=== PATIENT | female | born 1970 | race Caucasian/White ===

== ENCOUNTER 2017-01-28 09:17 | Emergency (ER) | payer MEDICAID ==
[~2017-01-28 09:17] MED LIST: GLU500
[2017-01-28 09:22] VITALS: BP 144/88
== END 2017-01-28 10:33 | disposition home or self-care (01) ==
LOC: ED 09:17
DX: H10.31 Unspecified acute conjunctivitis, right eye (principal); E11.9 Type 2 diabetes mellitus without complications; I10 Essential (primary) hypertension; Z79.84 Long term (current) use of oral hypoglycemic drugs
CPT/HCPCS: 82962

== ENCOUNTER 2017-01-31 21:23 | Emergency (ER) | payer MEDICAID ==
[2017-01-31 22:03] VITALS: BP 122/74
== END 2017-01-31 22:03 | disposition home or self-care (01) ==
LOC: ED 21:23
DX: H10.33 Unspecified acute conjunctivitis, bilateral (principal); E11.9 Type 2 diabetes mellitus without complications; Z79.84 Long term (current) use of oral hypoglycemic drugs

== ENCOUNTER 2017-08-23 18:05 | Inpatient (IN) | payer MEDICAID ==
[~2017-08-23] VITALS: Ht 167.6 cm; Wt 66.9 kg
[2017-08-23 18:15] VITALS: Ht 167.6 cm; Wt 66.9 kg
[2017-08-23 19:20] LABS: BASOPHIL % 0.4 % (0-2); PLATELET COUNT 281 x10^3mcL (130-400); RED CELL DISTRIBUTION WIDTH 13.1 % (11.5-14.5)
[2017-08-23 19:34] LABS: ALBUMIN 4.1 g/dL (3.4-5.0); BILIRUBIN TOTAL 0.5 mg/dL (0.20-1.00); CALCIUM 10.1 mg/dL (8.5-10.1); CARBON DIOXIDE 32.4 mmol/L (21-32); CREATININE SERUM 1.1 mg/dL (0.6-1.0); POTASSIUM SERUM 3.6 mmol/L (3.5-5.1); TOTAL PROTEIN, SERUM 9.3 g/dL (6.4-8.2)
[2017-08-23 20:56] VITALS: BP 130/85
[2017-08-24 03:33] LABS: MAGNESIUM 2.3 mg/dL (1.8-2.4); PHOSPHOROUS 4.2 mg/dL (2.5-4.9)
[2017-08-24 03:37] LABS: T3 TOTAL 0.89 ng/mL
[2017-08-24 03:43] LABS: CHOLESTEROL/HDL RATIO 3.7
[2017-08-24 04:26] LABS: FREE T4 1.07 ng/dL (0.76-1.46); FREE THYROXINE INDEX 2.8 ug/dL (1.4-4.5); T4(THYROXINE) 8.6 ug/dL (4.7-13.3)
[2017-08-24 06:07] VITALS: BP 141/90
[2017-08-24 07:58] LABS: CALCIUM 9.1 mg/dL (8.5-10.1); CARBON DIOXIDE 29.1 mmol/L (21-32); CHLORIDE SERUM 103 mmol/L (98-107); CREATININE SERUM 0.8 mg/dL (0.6-1.0); GFR1 > 60 mL/min; GLUCOSE SERUM 318 mg/dL (74-106); MAGNESIUM 1.9 mg/dL (1.8-2.4); PHOSPHOROUS 3.4 mg/dL (2.5-4.9); POTASSIUM SERUM 3.5 mmol/L (3.5-5.1); SODIUM SERUM 141 mmol/L (136-145)
[2017-08-24 08:09] LABS: BASOPHIL % 0.2 % (0-2); PLATELET COUNT 227 x10^3mcL (130-400); RED CELL DISTRIBUTION WIDTH 13.3 % (11.5-14.5)
[2017-08-24 10:20] VITALS: BP 124/74
[2017-08-24 14:05] VITALS: BP 159/93
[2017-08-24 17:32] VITALS: BP 148/85
[2017-08-24 22:57] VITALS: BP 155/84
[2017-08-25 07:10] VITALS: BP 155/84
[2017-08-25 10:00] VITALS: BP 160/93
[2017-08-25] MEDS ORDERED: LIPI10 PO (10:52)
[2017-08-25] MEDS ORDERED: ZESTRIL5 MG PO (10:53)
[2017-08-25] MEDS ORDERED: METFORMIN HCL500 MG PO (10:54)
[2017-08-25] MEDS ORDERED: HUMULIN R100 U/1 M1 SC (10:56)
[2017-08-25] MEDS ORDERED: BG FS (10:56)
[2017-08-25] MEDS ORDERED: LANTUS SOLOS100 U/M1 SQ (10:58)
[2017-08-25 11:09] LABS: CALCIUM 8.9 mg/dL (8.5-10.1); CARBON DIOXIDE 25.6 mmol/L (21-32); CHLORIDE SERUM 97 mmol/L (98-107); CREATININE SERUM 0.7 mg/dL (0.6-1.0); GFR1 > 60 mL/min; GLUCOSE SERUM 334 mg/dL (74-106); MAGNESIUM 1.7 mg/dL (1.8-2.4); POTASSIUM SERUM 3.6 mmol/L (3.5-5.1); SODIUM SERUM 136 mmol/L (136-145)
[2017-08-25 11:33] LABS: BASOPHIL % 0.3 % (0-2); PLATELET COUNT 209 x10^3mcL (130-400); RED CELL DISTRIBUTION WIDTH 12.9 % (11.5-14.5)
[2017-08-25 11:50] VITALS: BP 153/89
[2017-08-25 12:18] LABS: AMPHETAMINE QUAL UR NONE DETECTED (NEG <=1000)
[2017-08-25 12:21] VITALS: BP 131/87; BP 153/89
[2017-08-25 13:15] VITALS: BP 166/101
[2017-08-25 15:06] VITALS: BP 131/87
== END 2017-08-25 17:40 | disposition home or self-care (01) | DRG 48 ==
LOC: ED 18:05 → DU 19:44
PROVIDERS: Emergency Medicine; Student in an Organized Health Care Education/Training Program
DX: E11.43 Type 2 diabetes mellitus with diabetic autonomic (poly)neuropathy (principal); E11.65 Type 2 diabetes mellitus with hyperglycemia; E83.42 Hypomagnesemia; K31.84 Gastroparesis; T38.3X6A Underdosing of insulin and oral hypoglycemic [antidiabetic] drugs, initial encounter; E11.40 Type 2 diabetes mellitus with diabetic neuropathy, unspecified; N39.498 Other specified urinary incontinence; M10.9 Gout, unspecified; D64.9 Anemia, unspecified; E78.5 Hyperlipidemia, unspecified; Z91.120 Patient's intentional underdosing of medication regimen due to financial hardship; Y92.009 Unspecified place in unspecified non-institutional (private) residence as the place of occurrence of the external cause
CPT/HCPCS: 36600; 82962; 83880; 84439; J1815; J2405; J2765; J7030; J8597; Q0092

== ENCOUNTER 2018-05-19 08:23 | Emergency (ER) | payer MEDICAID ==
[~2018-05-19] VITALS: Ht 165.1 cm; Wt 68.0 kg
[~2018-05-19 08:23] MED LIST changes: +BG FS; +HUMULIN R100 U/1 M1 SC; +LANTUS SOLOS100 U/M1 SQ; +LIPI10 PO; +METFORMIN HCL500 MG PO; +ZESTRIL5 MG PO
[2018-05-19 08:31] VITALS: Ht 165.1 cm; Wt 68.0 kg
[2018-05-19 11:55] VITALS: BP 182/94
== END 2018-05-19 11:55 | disposition home or self-care (01) ==
LOC: ED 08:23
DX: S13.4XXA Sprain of ligaments of cervical spine, initial encounter (principal); S29.012A Strain of muscle and tendon of back wall of thorax, initial encounter; S00.511A Abrasion of lip, initial encounter; R51 Headache; E11.9 Type 2 diabetes mellitus without complications; V49.9XXA Car occupant (driver) (passenger) injured in unspecified traffic accident, initial encounter; Y93.I9 Activity, other involving external motion; Y99.8 Other external cause status; Y92.488 Other paved roadways as the place of occurrence of the external cause
CPT/HCPCS: 90715; J2270; Q0162

== ENCOUNTER 2018-07-04 20:00 | Emergency (ER) | payer MEDICAID ==
[~2018-07-04] VITALS: Ht 165.1 cm; Wt 71.2 kg
[2018-07-04 20:08] VITALS: Ht 165.1 cm; Wt 71.2 kg
[2018-07-04 21:26] LABS: PLATELET COUNT 269 x10^3mcL (130-400); RED CELL DISTRIBUTION WIDTH 13.2 % (11.5-14.5)
[2018-07-04 21:27] LABS: BASOPHIL % 0 % (0-2)
[2018-07-04 21:41] LABS: ALKALINE PHOSPHATASE 110 U/L (46-116); ALT/SGPT 21 U/L (14-59); AST/SGOT 13 U/L (15-37); BILIRUBIN TOTAL 0.2 mg/dL (0.20-1.00); CALCIUM 9.3 mg/dL (8.5-10.1); CARBON DIOXIDE 29.1 mmol/L (21-32); CHLORIDE SERUM 95 mmol/L (98-107); GFR1 > 60 mL/min; LIPASE 144 IU/L (73-393); SODIUM SERUM 129 mmol/L (136-145); TOTAL PROTEIN, SERUM 7.4 g/dL (6.4-8.2)
[2018-07-04 21:42] LABS: ALBUMIN 2.9 g/dL (3.4-5.0)
[2018-07-04 21:43] LABS: GLUCOSE SERUM 696 mg/dL (74-106)
[2018-07-05 01:50] VITALS: BP 119/71
== END 2018-07-05 01:50 | disposition home or self-care (01) ==
LOC: ED 20:00
PROVIDERS: Emergency Medicine
DX: R42 Dizziness and giddiness (principal); K29.70 Gastritis, unspecified, without bleeding; E11.9 Type 2 diabetes mellitus without complications; Z98.890 Other specified postprocedural states
CPT/HCPCS: 82962; J1815; J2405; J8597; Q0162

== ENCOUNTER 2019-01-07 20:36 | Inpatient (IN) | payer MEDICAID ==
[~2019-01-07] VITALS: Ht 152.4 cm; Wt 78.0 kg
[2019-01-07 20:44] VITALS: Ht 152.4 cm; Wt 78.0 kg
[2019-01-07 21:59] LABS: PLATELET COUNT 190 x10^3mcL (130-400); RED CELL DISTRIBUTION WIDTH 13.5 % (11.5-14.5)
[2019-01-07 22:08] LABS: BAND NEUTROPHIL 7 % (0-10); METAMYELOCTE 4 % (0-2); MONOCYTE 2 % (0-7); SEGMENTED NEUTROPHILS 82 % (37-75)
[2019-01-07 22:09] LABS: PLATELET MORPHOLOGY PLATELETS NORMAL; rbc morphology (normal/abnorm) NORMAL (NORMAL)
[2019-01-07 22:24] LABS: BILIRUBIN TOTAL 0.4 mg/dL (0.20-1.00); CALCIUM 9.6 mg/dL (8.5-10.1); CARBON DIOXIDE 26.7 mmol/L (21-32); CREATININE SERUM 2.5 mg/dL (0.6-1.0); TOTAL PROTEIN, SERUM 7.5 g/dL (6.4-8.2)
[2019-01-07 22:27] LABS: ALBUMIN 1.9 g/dL (3.4-5.0)
[2019-01-07 22:29] LABS: POTASSIUM SERUM 5.9 mmol/L (3.5-5.1)
[2019-01-08 01:49] LABS: CHOLESTEROL 193 mg/dL (<200); PHOSPHOROUS 4.5 mg/dL (2.5-4.9)
[2019-01-08 02:16] LABS: CHOLESTEROL/HDL RATIO 24.1; HDL CHOLESTEROL 8 mg/dL (40-60); TRIGLYCERIDES 540 mg/dL (<150)
[2019-01-08 03:52] VITALS: BP 117/70
[2019-01-08 06:27] LABS: CALCIUM 8.9 mg/dL (8.5-10.1); CARBON DIOXIDE 20.6 mmol/L (21-32); POTASSIUM SERUM 4.7 mmol/L (3.5-5.1)
[2019-01-08 07:26] LABS: PLATELET COUNT 151 x10^3mcL (130-400); RED CELL DISTRIBUTION WIDTH 13.7 % (11.5-14.5)
[2019-01-08 08:12] VITALS: BP 121/75
[2019-01-08 11:36] LABS: BAND NEUTROPHIL 15 % (0-10); BASOPHIL 0 % (0-2); METAMYELOCTE 3 % (0-2); MONOCYTE 5 % (0-7); MYELOCYTE 1 % (0-2); SEGMENTED NEUTROPHILS 72 % (37-75)
[2019-01-08 11:38] LABS: PLATELET MORPHOLOGY PLATELETS NORMAL
[2019-01-08 11:39] LABS: rbc morphology (normal/abnorm) ABNORMAL (NORMAL)
[2019-01-08 11:55] VITALS: BP 121/69
[2019-01-08 13:23] LABS: microscopic required? YES; urine erythrocyte 3+ (NEGATIVE)
[2019-01-08 15:42] VITALS: BP 108/69
[2019-01-08 20:33] VITALS: BP 117/71
[2019-01-09 04:00] VITALS: BP 130/76
[2019-01-09 05:44] LABS: PLATELET COUNT 133 x10^3mcL (130-400); RED CELL DISTRIBUTION WIDTH 13.7 % (11.5-14.5)
[2019-01-09 05:48] LABS: CALCIUM 8.8 mg/dL (8.5-10.1); CARBON DIOXIDE 23.4 mmol/L (21-32); CREATININE SERUM 1.5 mg/dL (0.6-1.0); MAGNESIUM 1.9 mg/dL (1.8-2.4); PHOSPHOROUS 2.7 mg/dL (2.5-4.9); POTASSIUM SERUM 3.8 mmol/L (3.5-5.1)
[2019-01-09 08:19] VITALS: BP 140/74
[2019-01-09 11:46] VITALS: BP 138/77
[2019-01-09 12:00] LABS: BAND NEUTROPHIL 16 % (0-10); MONOCYTE 5 % (0-7); PLATELET MORPHOLOGY PLATELETS NORMAL; SEGMENTED NEUTROPHILS 73 % (37-75); rbc morphology (normal/abnorm) NORMAL (NORMAL)
[2019-01-09 15:50] VITALS: BP 114/69
[2019-01-09 19:49] VITALS: BP 109/68
[2019-01-09 20:53] VITALS: BP 140/84
[2019-01-10 05:10] VITALS: BP 115/68
[2019-01-10 07:07] LABS: RED CELL DISTRIBUTION WIDTH 14.2 % (11.5-14.5)
[2019-01-10 07:16] LABS: PLATELET COUNT 121 x10^3mcL (130-400)
[2019-01-10 07:34] LABS: CALCIUM 8.8 mg/dL (8.5-10.1); CARBON DIOXIDE 25.8 mmol/L (21-32); CREATININE SERUM 1.6 mg/dL (0.6-1.0); POTASSIUM SERUM 4.1 mmol/L (3.5-5.1)
[2019-01-10 09:13] VITALS: BP 122/71
[2019-01-10 13:28] VITALS: BP 120/80
[2019-01-10 13:49] LABS: BAND NEUTROPHIL 18 % (0-10); MONOCYTE 8 % (0-7); SEGMENTED NEUTROPHILS 63 % (37-75)
[2019-01-10 13:50] LABS: PLATELET MORPHOLOGY LARGE PLATELET SEEN; rbc morphology (normal/abnorm) ABNORMAL (NORMAL)
[2019-01-10 17:10] VITALS: BP 111/70
[2019-01-10 19:49] VITALS: BP 120/68
[2019-01-11 04:38] VITALS: BP 138/80
[2019-01-11 07:37] LABS: CALCIUM 8.2 mg/dL (8.5-10.1); CARBON DIOXIDE 22.9 mmol/L (21-32); CREATININE SERUM 1.6 mg/dL (0.6-1.0); POTASSIUM SERUM 3.5 mmol/L (3.5-5.1)
[2019-01-11 08:16] LABS: PLATELET COUNT 151 x10^3mcL (130-400); RED CELL DISTRIBUTION WIDTH 14.4 % (11.5-14.5)
[2019-01-11 09:24] VITALS: BP 134/76
[2019-01-11 10:46] LABS: BAND NEUTROPHIL 14 % (0-10); BASOPHIL 0 % (0-2); MONOCYTE 6 % (0-7); SEGMENTED NEUTROPHILS 66 % (37-75); rbc morphology (normal/abnorm) ABNORMAL (NORMAL)
[2019-01-11 12:29] VITALS: BP 132/70
[2019-01-11 16:47] VITALS: BP 143/77
[2019-01-11 20:58] VITALS: BP 145/80
[2019-01-12 05:38] VITALS: BP 138/76
[2019-01-12 07:17] LABS: PLATELET COUNT 173 x10^3mcL (130-400)
[2019-01-12 07:25] LABS: RED CELL DISTRIBUTION WIDTH 14.7 % (11.5-14.5)
[2019-01-12 08:13] LABS: CALCIUM 8.2 mg/dL (8.5-10.1); CARBON DIOXIDE 23.2 mmol/L (21-32); CREATININE SERUM 1.2 mg/dL (0.6-1.0); POTASSIUM SERUM 3.5 mmol/L (3.5-5.1)
[2019-01-12 08:44] VITALS: BP 156/83
[2019-01-12] MEDS ORDERED: NITROFURANTOIN100 MG PO (12:26)
[2019-01-12 16:26] LABS: BAND NEUTROPHIL 3 % (0-10); MONOCYTE 2 % (0-7); PLATELET MORPHOLOGY PLATELETS DECREASED; SEGMENTED NEUTROPHILS 91 % (37-75); rbc morphology (normal/abnorm) NORMAL (NORMAL)
[2019-01-12 16:35] VITALS: BP 159/90
[2019-01-12 21:05] VITALS: BP 133/79
[2019-01-13 05:34] VITALS: BP 147/82
[2019-01-13 06:40] LABS: CALCIUM 8.1 mg/dL (8.5-10.1); CARBON DIOXIDE 24.9 mmol/L (21-32); CREATININE SERUM 1.2 mg/dL (0.6-1.0); MAGNESIUM 1.6 mg/dL (1.8-2.4); POTASSIUM SERUM 3.7 mmol/L (3.5-5.1)
[2019-01-13 06:46] LABS: PLATELET COUNT 213 x10^3mcL (130-400)
[2019-01-13 08:22] VITALS: BP 150/82
[2019-01-13 11:53] VITALS: BP 142/90
[2019-01-13 12:42] LABS: BAND NEUTROPHIL 3 % (0-10); BASOPHIL 0 % (0-2); PLATELET MORPHOLOGY PLATELETS DECREASED; SEGMENTED NEUTROPHILS 96 % (37-75)
[2019-01-13 12:43] LABS: ovalocyte/elliptocyte 1+; rbc morphology (normal/abnorm) ABNORMAL (NORMAL)
[2019-01-13 15:49] VITALS: BP 167/92
[2019-01-13 16:28] VITALS: BP 148/88
[2019-01-13 19:45] VITALS: BP 153/82
[2019-01-14 05:04] VITALS: BP 145/79
[2019-01-14 07:03] LABS: PLATELET COUNT 245 x10^3mcL (130-400); RED CELL DISTRIBUTION WIDTH 13.9 % (11.5-14.5)
[2019-01-14 07:11] LABS: CALCIUM 8.2 mg/dL (8.5-10.1); CARBON DIOXIDE 20.1 mmol/L (21-32); CREATININE SERUM 1.1 mg/dL (0.6-1.0); POTASSIUM SERUM 3.7 mmol/L (3.5-5.1)
[2019-01-14 07:47] VITALS: BP 131/77
[2019-01-14 11:43] VITALS: BP 117/84
[2019-01-14 12:20] LABS: BAND NEUTROPHIL 10 % (0-10); BASOPHIL 0 % (0-2); MONOCYTE 4 % (0-7); SEGMENTED NEUTROPHILS 78 % (37-75)
[2019-01-14 12:21] LABS: PLATELET MORPHOLOGY GIANT PLATELET SEEN; rbc morphology (normal/abnorm) ABNORMAL (NORMAL)
[2019-01-14 15:54] VITALS: BP 139/78
[2019-01-14 20:23] VITALS: BP 170/87
[2019-01-14 22:25] VITALS: BP 154/80
[2019-01-15 04:46] VITALS: BP 143/66
[2019-01-15 07:16] LABS: PLATELET COUNT 303 x10^3mcL (130-400); RED CELL DISTRIBUTION WIDTH 14.1 % (11.5-14.5)
[2019-01-15 07:45] LABS: CALCIUM 8.8 mg/dL (8.5-10.1); CARBON DIOXIDE 21.9 mmol/L (21-32); CHLORIDE SERUM 107 mmol/L (98-107); GFR1 > 60 mL/min; GLUCOSE SERUM 179 mg/dL (74-106); POTASSIUM SERUM 3.9 mmol/L (3.5-5.1); SODIUM SERUM 140 mmol/L (136-145)
[2019-01-15 09:59] VITALS: BP 154/84
[2019-01-15 12:11] LABS: ATYPICAL LYMPH 1 %; BAND NEUTROPHIL 3 % (0-10); BASOPHIL 0 % (0-2); MONOCYTE 6 % (0-7); PLATELET MORPHOLOGY PLATELETS DECREASED; SEGMENTED NEUTROPHILS 85 % (37-75)
[2019-01-15 12:12] LABS: rbc morphology (normal/abnorm) ABNORMAL (NORMAL)
[2019-01-15 17:26] VITALS: BP 159/93
[2019-01-15 21:36] VITALS: BP 139/92; BP 169/92
[2019-01-15 23:29] VITALS: BP 150/85
[2019-01-16 06:42] VITALS: BP 144/75
[2019-01-16 06:52] LABS: BASOPHIL % 0.4 % (0-2); PLATELET COUNT 299 x10^3mcL (130-400); RED CELL DISTRIBUTION WIDTH 13.8 % (11.5-14.5)
[2019-01-16 07:04] LABS: CALCIUM 8.2 mg/dL (8.5-10.1); CARBON DIOXIDE 25.3 mmol/L (21-32); CHLORIDE SERUM 107 mmol/L (98-107); GFR1 > 60 mL/min; GLUCOSE SERUM 229 mg/dL (74-106); POTASSIUM SERUM 3.8 mmol/L (3.5-5.1); SODIUM SERUM 139 mmol/L (136-145)
[2019-01-16 09:30] VITALS: BP 145/88
[2019-01-16 17:41] VITALS: BP 185/97
[2019-01-16 17:59] VITALS: BP 185/87
[2019-01-16 18:56] VITALS: BP 137/90
[2019-01-16 21:20] VITALS: BP 154/80
[2019-01-17 04:54] VITALS: BP 151/82
[2019-01-17 07:15] LABS: BASOPHIL % 0.1 % (0-2); PLATELET COUNT 344 x10^3mcL (130-400); RED CELL DISTRIBUTION WIDTH 14.3 % (11.5-14.5)
[2019-01-17 07:16] LABS: CALCIUM 8.1 mg/dL (8.5-10.1); CARBON DIOXIDE 25.4 mmol/L (21-32); CREATININE SERUM 1.2 mg/dL (0.6-1.0); POTASSIUM SERUM 4.3 mmol/L (3.5-5.1)
[2019-01-17 09:08] VITALS: BP 159/84
[2019-01-17 12:57] VITALS: BP 159/84
[2019-01-17 13:24] VITALS: BP 181/89
[2019-01-17 17:13] VITALS: BP 175/95
[2019-01-17 21:25] VITALS: BP 167/87
[2019-01-18 06:02] VITALS: BP 120/60
[2019-01-18 06:43] LABS: RED CELL DISTRIBUTION WIDTH 14.5 % (11.5-14.5)
[2019-01-18 06:44] LABS: PLATELET COUNT 428 x10^3mcL (130-400)
[2019-01-18 07:20] LABS: CALCIUM 9.4 mg/dL (8.5-10.1); CARBON DIOXIDE 24.5 mmol/L (21-32); CREATININE SERUM 1.1 mg/dL (0.6-1.0); POTASSIUM SERUM 4.7 mmol/L (3.5-5.1)
[2019-01-18 09:04] VITALS: BP 152/88
[2019-01-18] MEDS ORDERED: LEVAQUIN750 MG PO (11:32)
[2019-01-18] MEDS ORDERED: LASIX20 MG PO (11:32)
[2019-01-18 12:13] VITALS: BP 152/85
[2019-01-18 14:28] LABS: BAND NEUTROPHIL 0 % (0-10); BASOPHIL 0 % (0-2); MONOCYTE 3 % (0-7); SEGMENTED NEUTROPHILS 83 % (37-75); rbc morphology (normal/abnorm) ABNORMAL (NORMAL)
[2019-01-18 14:29] LABS: PLATELET MORPHOLOGY PLATELETS NORMAL
== END 2019-01-18 15:41 | disposition home or self-care (01) | DRG 720 ==
LOC: ED 20:36 → MU 01-08 00:42 → DU 01-08 00:42 → MU 01-11 12:43 → DU 01-16 17:37
PROVIDERS: Emergency Medicine; Family Medicine; Internal Medicine; ADMIT Internal Medicine
PROC: 0DB68ZX Excision of Stomach, Via Natural or Artificial Opening Endoscopic, Diagnostic (ICD-10-PCS; principal; 2019-01-10 10:30)
DX: A41.9 Sepsis, unspecified organism (principal); N17.0 Acute kidney failure with tubular necrosis; E43 Unspecified severe protein-calorie malnutrition; E11.65 Type 2 diabetes mellitus with hyperglycemia; E87.1 Hypo-osmolality and hyponatremia; N39.0 Urinary tract infection, site not specified; R31.9 Hematuria, unspecified; N13.30 Unspecified hydronephrosis; K29.70 Gastritis, unspecified, without bleeding; K21.9 Gastro-esophageal reflux disease without esophagitis; E87.5 Hyperkalemia; E78.5 Hyperlipidemia, unspecified; E78.1 Pure hyperglyceridemia; Z68.22 Body mass index [BMI] 22.0-22.9, adult; Z79.4 Long term (current) use of insulin; Z79.84 Long term (current) use of oral hypoglycemic drugs
CPT/HCPCS: 36600; 43235; 82962; 83880; 97110-GP; 97116-GP; 97530-GP; J0360; J1200; J1610; J1815; J1940; J1956; J2250; J2270; J2310; J2405; J2543; J2765; J3010; J3370; J3490; J7030; J7050; Q0092

== ENCOUNTER 2020-01-11 21:26 | Inpatient (IN) | payer MEDICAID, SELFPAY ==
[~2020-01-11] VITALS: Ht 157.5 cm; Wt 78.0 kg
[~2020-01-11 21:26] MED LIST changes: +LASIX20 MG PO; +LEVAQUIN750 MG PO; +NITROFURANTOIN100 MG PO
--- NOTE | 2020-01-11 22:57 | NUR ---
XRAY AT BEDSIDE
[2020-01-11 23:38] LABS: PLATELET COUNT 360 x10^3mcL (130-400); RED CELL DISTRIBUTION WIDTH 13.4 % (11.5-14.5)
--- NOTE | 2020-01-11 23:38 | NUR ---
PATIENT LAYING IN BED AWAKE, NO DISTRESS NOTED, PROVIDED PATIENT WITH BLANCKET FOR COMFORT.
[2020-01-11 23:58] LABS: BILIRUBIN TOTAL 0.1 mg/dL (0.20-1.00); CALCIUM 8.2 mg/dL (8.5-10.1); CARBON DIOXIDE 18.8 mmol/L (21-32); TOTAL PROTEIN, SERUM 7.4 g/dL (6.4-8.2)
--- NOTE | 2020-01-11 23:59 | NUR ---
REPORT RECEIVED FROM ANDREWS MARTINEZ. PATIENT IN STABLE CONDITION.
[2020-01-12] VITALS (7 sets, daily range): BP systolic 105–179; BP diastolic 62–98
[2020-01-12 00:01] LABS: ALBUMIN 1.8 g/dL (3.4-5.0); CREATININE SERUM 5.1 mg/dL (0.6-1.0); POTASSIUM SERUM 6.2 mmol/L (3.5-5.1)
[2020-01-12 00:15] LABS: BAND NEUTROPHIL 1 % (0-10); MONOCYTE 5 % (0-7); SEGMENTED NEUTROPHILS 86 % (37-75); rbc morphology (normal/abnorm) NORMAL (NORMAL)
[2020-01-12 00:31] LABS: UA SPECIFIC GRAVITY 1.025 (1.005-1.035); microscopic required? YES; urine erythrocyte 1+ (NEGATIVE)
--- NOTE | 2020-01-12 01:15 | NUR ---
PATIENT LAYIN GIN BED AWAKE, NO ACUTE DISTRESS NOTED AT THIS TIME, CALL LIGHT WITHIN REACH, WILL CONTINUE TO MONITOR.
--- NOTE | 2020-01-12 01:49 | NUR ---
PATIENT TAKE TO CT VIA GURNEY, NO DISTRESS NOTED AT THIS TIME.
--- NOTE | 2020-01-12 02:17 | NUR ---
PATIENT RETURNED FROM CT VIA RSHARPS [place]APEL, NO DISTRESS NOTED AT THIS TIME, WILL CONTINUE TO MONITOR.
--- NOTE | 2020-01-12 02:47 | NUR ---
PATIENT URINATED ON SELF, CLEANED AND CHANGED BEDDING. PT TOLERATED WELL.
[2020-01-12] MEDS ORDERED: FORTAMET1000 MG PO (02:53)
--- NOTE | 2020-01-12 03:20 | NUR ---
REPORT GIVEN TO DARIELA SPARROW, EXT. [id number], ALL QUESTIONS ADDRESSED.
--- NOTE | 2020-01-12 03:30 | NUR ---
ADMITTED PT FROM ED. PT AAOX4. PT ON ROOM AIR. PT CONNECTED TO HEART MONITOR, HEART RHYTHM IS NSR. INITAL VITAL SIGNS, T 97.6, HR 92, BP 179/88(112), O2 100%, RR 14. S1S2 AUSCULTATED, NO S/SX OF CHEST PAIN AT THIS TIME. PULSES MODERATE X4, NO EDEMA PRESENT. CAP REFILL < 3 SEC. PIV LAC, RAC WNL. R BUTTOCK ULCER, DRESSING CDI. R LOWER LEG SCAB, PRERNA. ABDOMEN SOFT, FLAT. BOWEL SOUNDS PRESENT X4 Q. NO N/V, BM AT THIS TIME. F/C INTACT DRAINING VIA GRAVITY YELLOW URINE. GENERALIZED WEAKNESS PRESENT. PT DENIES CURRENT PAIN & IS CALM, COOPERATIVE AT THIS TIME. WILL CONTINUE TO MONITOR.
--- NOTE | 2020-01-12 04:09 | NUR ---
RECEIVED PT FROM ED. PT ALERT AND ORIENTED X4. NO DISTRESS NOTED. KEPT CLEAN AND DRY. ADMISSION CARE RENDERED. SPOKE TO DR. LANGSTON REGARDING NEW ORDERS. NEW ORDERS NOTED AND CARRIED OUT. WILL CONTINUE TO MONITOR.
[2020-01-12 06:07] LABS: CHOLESTEROL/HDL RATIO 10.3
[2020-01-12 06:23] LABS: CALCIUM 8.7 mg/dL (8.5-10.1); CARBON DIOXIDE 18.3 mmol/L (21-32); MAGNESIUM 2.1 mg/dL (1.8-2.4); PHOSPHOROUS 4.4 mg/dL (2.5-4.9)
[2020-01-12 06:25] LABS: POTASSIUM SERUM 6.2 mmol/L (3.5-5.1)
[2020-01-12 06:27] LABS: BASOPHIL % 0.2 % (0-2); RED CELL DISTRIBUTION WIDTH 13.5 % (11.5-14.5)
[2020-01-12 06:28] LABS: PLATELET COUNT 359 x10^3mcL (130-400)
--- NOTE | 2020-01-12 06:42 | NUR ---
SPOKE TO AND RELAYED LAB RESULTS WITH NEW ORDERS. NEW ORDERS NOTED AND CARRIED OUT. WILL CONTINUE TO MONITOR.
--- NOTE | 2020-01-12 08:00 | NUR ---
RECIEVED PT IN BED A/O X 4 SPANSIH SPEAKING. SEE COMPLETED ASSESSMENT FOR DETAILS. PT STABLE WITH NO ACUTE DISTRESS OR PAIN. BED IN LOW POSITION. CALL LIGHT IN REACH. WILL CONT TO MONITOR.
--- NOTE | 2020-01-12 09:10 | NUR ---
DR. DUMAS CALLED FOR UPDATES ON PATIENT. UPDATES PROVIDED AND ORDER FOR BMP AT 1100 GIVEN. WILL FOLLOW AND CONTINUE TO MONITOR.
--- NOTE | 2020-01-12 09:18 | NUR ---
DR. MILLER (UROLOGY) IN TO SEE PT, UPDATES PROVIDED BY NURSING. NO FURTHER ORDERS AT THIS TIME. WOUND CULTURE OF RIGHT BUTTOCK WOUND OBTAINED AND SENT TO LAB.
--- NOTE | 2020-01-12 10:20 | NUR ---
DR. OLVERA IN UNIT TO SEE AND ASSESS PT FOR SURGERY CONSULT. PT TO HAVE I & D TODAY. PROCEDURES, RISK AND BENEFITS EXPLAINED AND TRANSLATED WITH HELP OF ONLINE AFFILIATE MARKETING MANAGER MARTHA. PT VERBALIZED UNDERSTANDING. CONSENT SIGNED AND PLACED IN CHART.
--- NOTE | 2020-01-12 11:02 | NUR ---
DR. OLVERA IN UNIT AND STATED ANESTHIA HAS PLACED THE CASE ON HOLD AT THIS TIME DUE TO ELEVATED POTASSIUM LEVEL. DR. OLVERA MADE AWARE POTASSIUM LEVEL WAS TREATED THIS MORNING (SEE EMAR) AND THAT LAB IS TO BE REPEATED AT [address]. PER DR[address] OLVERA IF POTASSIUM LEVEL IS NOT REDUCED CASE WILL NOT BE ABLE TO BE DONE AND SHOULD CONSIDER TRANSFERRING THE PT OUT. DR. GACRIA MADE AWARE OF THE ABOVE CONVERSTATION.
[2020-01-12 11:49] LABS: CALCIUM 8.8 mg/dL (8.5-10.1); CARBON DIOXIDE 17.7 mmol/L (21-32); POTASSIUM SERUM 5.1 mmol/L (3.5-5.1)
[2020-01-12 11:51] LABS: CREATININE SERUM 4.7 mg/dL (0.6-1.0)
--- NOTE | 2020-01-12 12:00 | NUR ---
SHIFT REASSESSMENT COMPLETED AT THIS TIME. SEE COMPLETED ASSESSMENT FOR DETAILS. NO ACUTE CHANGES NOTED. PT REMAINS STABLE. WILL CONT TO MONITOR. CALL LIGHT IN REACH.
--- NOTE | 2020-01-12 13:24 | NUR ---
ARAM FROM OR MADE AWARE K+ 5.1 AND THE PRIMARY NURSE IS GOING TO TREAT THE HYPERKALEMIA AGAIN AT THIS TIME (SEE EMAR). WILL CONTINUE TO MONITOR.
--- NOTE | 2020-01-12 15:52 | NUR ---
CALLED OR TO FOLLOW UP ON SURGERY TIME, PER PAYROLL BENEFITS CLERK BRIGID STILL WAITING TO HEAR BACK FROM DR. OLVERA AND DOES NOT THINK THE PT WILL GO TO SURGERY TODAY DUE TO TIME. DR. GARCIA MADE AWARE.
--- NOTE | 2020-01-12 16:00 | NUR ---
SHIFT REASSESSMENT COMPLETED, SEE COMPLETED DETAILS. NO ACUTE CHANGES NOTED. PT AWAITING FOR I&D. CALL LIGHT IN REACH. BED IN LOW POSITION. WILL CONT TO MONITOR.
[2020-01-12 16:29] LABS: CALCIUM 8.5 mg/dL (8.5-10.1); CARBON DIOXIDE 18.6 mmol/L (21-32)
[2020-01-12 16:30] LABS: CREATININE SERUM 4.6 mg/dL (0.6-1.0)
--- NOTE | 2020-01-12 17:11 | NUR ---
DR. HORTA IN UNIT TO SEE AND ASSESS PT. MADE AWARE OF TROP LEVELS TRENDING DOWN. NO FURTHER ORDERS. WILL CONT TO MONITOR.
--- NOTE | 2020-01-12 18:28 | NUR ---
REPORT GIVEN TO REIMBURSEMENT DIRECTORANDREWS RAINEY. PT TAKEN OFF UNIT TO OR AT THIS TIME FOR PLANNED I & D PROCEDURE.
--- NOTE | 2020-01-12 19:16 | NUR ---
RECEIVED REPORT FROM OTTONIEL SPARROW. WILL RESUME CARE. PT STILL IN OR AT THIS TIME.
--- NOTE | 2020-01-12 20:00 | NUR ---
RECEIVED PT FROM OR. PT LETHARGIC, BUT AAOX4. PT ON ROOM AIR, NO SIGNS OF RESPIRATORY DISTRESS. LUNG SOUNDS CLEAR BILATERALLY. VITALS ARE HR 92, BP 125/70(80), RR 17, O2 100%, T 98.8. PT CONNECTED TO HEART MONITOR & CONTINUOUS PULSE OX. HEART RHYTHM IS NSR. S1S2 AUSCULTATED PULSES MODERATE X4, CAP REFILL < 3 SEC. +2 EDEMA BLE, TRACE EDEMA BUE. ABDOMEN SOFT, ROUND. NO N/V, BM AT THIS TIME. F/C INTACT DRAINING VIA GRAVITY MADISON URINE. R BUTTOCK AREA COVERED WITH ABD DRESSING. DRESSING CDI. PER OR NURSE ESTIMATED BLOOD LOSS FOR I&D PROCEDURE IS 25CC.PT IS CALM & COOPERATIVE AT THIS TIME. WILL CONTINUE TO MONITOR.
--- NOTE | 2020-01-12 20:00 | NUR ---
RECEIVED PT FROM OR. PT LETHARGIC, BUT AAOX4. PT ON ROOM AIR, NO SIGNS OF RESPIRATORY DISTRESS. LUNG SOUNDS CLEAR BILATERALLY. VITALS ARE HR 92, BP 125/70(80), RR 17, O2 100%, T 98.8. PT CONNECTED TO HEART MONITOR & CONTINUOUS PULSE OX. HEART RHYTHM IS NSR. S1S2 AUSCULTATED PULSES MODERATE X4, CAP REFILL < 3 SEC. NO EDEMA PRESENT. ABDOMEN SOFT, ROUND. NO N/V, BM AT THIS TIME. F/C INTACT DRAINING VIA GRAVITY MADISON URINE. R BUTTOCK AREA COVERED WITH ABD DRESSING. DRESSING CDI. PER OR NURSE ESTIMATED BLOOD LOSS FOR I&D PROCEDURE IS 25CC.PT IS CALM & COOPERATIVE AT THIS TIME. WILL CONTINUE TO MONITOR.
--- NOTE | 2020-01-12 22:43 | NUR ---
UPON ASSESSMENT PT COMPLAINED OF POST OP PAIN 8/10 AND NAUSEA. DILAUDID 0.5MG IVP AND ZOFRAN 4MG IVP GIVEN. WILL CONTINUE TO MONITOR.
--- NOTE | 2020-01-13 03:00 | NUR ---
REASSESSED PT. PT IN NO ACUTE DISTRESS, SLEEPING IN BED AT THIS TIME
[2020-01-13 03:09] VITALS: BP 115/71
--- NOTE | 2020-01-13 04:29 | NUR ---
JAVASCRIPT UI DEVELOPER AT BEDSIDE FOR LAB DRAW
--- NOTE | 2020-01-13 04:51 | NUR ---
UPON ASSESSMENT, WOUND DRESSING TO R BUTTOCK DISPLACED. REPACKED WOUND WITH BETADINE GAUZE & COVERED WITH ABD DRESSING.
[2020-01-13 05:14] LABS: PLATELET COUNT 387 x10^3mcL (130-400); RED CELL DISTRIBUTION WIDTH 13.8 % (11.5-14.5)
[2020-01-13 05:35] LABS: CALCIUM 7.8 mg/dL (8.5-10.1); CARBON DIOXIDE 14.4 mmol/L (21-32); MAGNESIUM 1.8 mg/dL (1.8-2.4); PHOSPHOROUS 5.2 mg/dL (2.5-4.9); POTASSIUM SERUM 5.1 mmol/L (3.5-5.1)
[2020-01-13 06:06] LABS: BAND NEUTROPHIL 10 % (0-10); MONOCYTE 4 % (0-7); SEGMENTED NEUTROPHILS 80 % (37-75)
[2020-01-13 06:07] LABS: PLATELET MORPHOLOGY PLATELETS NORMAL
[2020-01-13 06:11] LABS: rbc morphology (normal/abnorm) NORMAL (NORMAL)
[2020-01-13 07:30] VITALS: BP 128/77
--- NOTE | 2020-01-13 07:30 | NUR ---
RECEIVED PT FROM SPECIAL EDUCATION AIDE RN. A/OX4. ON OPERATIONS LEADER. DENIES ANY CHEST PAIN/PRESSURE. RESPIRATIONS EQUAL AND UNLABORED ON RA. DENIES ANY SOB. PT DENIES ANY SOB AT THIS TIME. PT DOES REPORT ON AND OFF NAUSEA, BUT DENIES ANY AT THIS TIME. DR. MILLER AT BEDSIDE, GIVEN UPDATES ON PT, DRESSING TO RIGHT BUTTOCK CHECKED WITH DR. MILLER, CDI. PER DR. MILLER RECOMMNDS CONTINUE WITH DRESSING CHANGES FOR NOW AND NOT PLAN FOR WOUND VAC TODAY D/T ELEVATED K AND WBC. PT AFEBRILE AT THIS TIME. IV RAC PATENT AND INFUSING NS AT 150ML/HR, NO REDNESS OR SWELLING NOTED. IV TO LAC SALINE LOCKED. NO REDNESS OR SWELLING NOTED. WILL CONTINUE TO MONITOR. CALL LIGHT IN REACH. BED IN LOWEST POSITION.
--- NOTE | 2020-01-13 09:21 | NUR ---
PT SITTING UP IN BED. NO ACUTE RESP DISTRESS NOTED. PT DENIES ANY PAIN AT THIS TIME. WOUND CARE NURSE DARNELL AT BEDSIDE, STATES WOUND IS CLEAN WILL CLARIFY WITH DR. GARCIA WHEN WOUND VAC SHOULD BE PLACED. GIVEN PO MEDS. TOLERATED WELL. NIBP:128/78, MAP:91, HR:96. IV ANTIBIOTICS INFUSING ORDERED. NO REDNESS OR SWELLING NOTED. WILL CONTINUE TO MONITOR. CALL LIGHT IN REACH. BED IN LOWEST POSITION.
--- NOTE | 2020-01-13 09:26 | NUR ---
POC DISCUSSED WITH DR. GARCIA AND PRIMARY RN, PER DR. GARCIA "DO NOT REMOVE WOUND PACKING UNTIL TOMORROW AND APPLY WOUND VAC ON FRIDAY." REQUEST DR. GARCIA TO PLACE ORDER FOR WOUND VAC. PER PRIMARY RN, PT. WILL TRANSFER TO [facility] TODAY.
--- NOTE | 2020-01-13 10:30 | NUR ---
REPORT GIVEN TO BRITTANIE SPARROW ON 2N, ALL QUESTIONS AND CONCERNS ADDRESSED.
--- NOTE | 2020-01-13 10:50 | NUR ---
PT TRANSFERRED TO 235B, NO PROBLEMS ENCOUNTERED. ANDREWS GU TO RESUME CARE.
--- NOTE | 2020-01-13 11:07 | NUR ---
RECEIVED FROM LOAN SERVICES PROFESSIONALANDREWS WALLIS. AOX4, NOT IN DISTRESS, TELE 23 , NSR, PALPABLE PULSES, NO EDEMA, CTA ON BLF, +BS, SKY CATHETER INTACT WITH CLOUDY URINE AND GOOD OUTPUT, GENERALIZED WEAKNESS, LIMITED ROM, R BUTTOCK DTI, S/P I&D 01/12/20, WOUND PACKED WITH SOAKED BETADINE DRESSING, NO OBVIOUS DISCHARGES, IV INTACT AND PATENT AT LAC. PATIENT COMPLAINED OF PAIN AT RAC. NO REDNESS OR SWELLING, CALL LIGHT WITHIN REACH. BED AT LOWEST POSITION, SIDE RAILS UP.
--- NOTE | 2020-01-13 12:14 | NUR ---
ACCUCHECK DONE WITH CBG 211. REG 6 UNITS SQ GIVEN. PHOSLO PO GIVEN.
--- NOTE | 2020-01-13 13:07 | NUR ---
PER DR OLVERA, ORDER CLEOCIN TO GIVE STAT AND THEN EVERY 6 HOURS THEREAFTER. PLEASE CONTINUE SAME DOSE OF CLEOCIN TO GIVE FOR 7 MORE DAYS. PLEASE CONTINUE ZOSYN AND VANCOMYCIN ORDERED
--- NOTE | 2020-01-13 13:14 | NUR ---
STOOL CULTURE AND OB STOOL, WBC STOOL SPECIMEN COLLECTION AT PATIENT'S TOILET. INSTRUCTED PATIENT TO CALL ONCE FEELING THE URGE TO POOP SO WE CAN COLLECT SPECIMEN.
--- NOTE | 2020-01-13 13:41 | NUR ---
ORDERED 2 AMPULES SODIUM BICARBONATE IN 1/2 NS AT 150CC/HR FOR METABOLIC ACIDOSIS.
--- NOTE | 2020-01-13 13:45 | NUR ---
SPOKE WITH DR OLVERA AND CONFIRMED THAT WOUND VAC WILL BE DONE TOMORROW 01/14/20. HYDRAULIC TESTER AT BEDSIDE
--- NOTE | 2020-01-13 14:15 | NUR ---
PATIENT CONSENT SIGNED FOR DEBRIDEMENT AND WOUND VACUUM PLACEMENT AND PLACED ON CHART. PATIENT UNDERSTOOD RISK AND BENEFITS.
--- NOTE | 2020-01-13 15:14 | NUR ---
IVF OF 1/2 NS WITH 2 AMPULES BICARBONATE INFUSING WELL AT 150CC/HR. NO REDNESS OR SWELLING . CALL LIGHT WITHIN REACH. BED AT LOWEST POSITION.
--- NOTE | 2020-01-13 15:41 | NUR ---
Initial Nutrition Assessment: 235T/B ROCHELLE FRIEDMAN 49F HR IA Nursing trigger: Admitted with potential risk diagnosis Consult: Malnutrition, wound Dx: Sepsis hyperkalemia, Renal failure PMHx: DM, GERD, HTN, Dyslipidemia PSHx: Labs: (01/12) Co2 14.4L, Glucose 124H, BUN 73H, Cr 4H, phos 5.2H, WBC 24.8H, H/H 8.2/25L (01/11) Triglyceride 278H, Troponin 0.302H Meds: Apresolin, Cleocin, D50%, Lantus, Lipitor, Lopressor, Norvasc, Phoslo, sodium chloride, Vancomycin, Zosyn PRN meds: Dilaudid, Humulin, Hydralazine, Morphine, Ogema, Normodyne, Tylenol, Zofran Diet: CCHO diet PO intake since admission: no flowsheet entry, 100% for breakfast noted. Ht: 157.48cm/62in Wt: 60kg/132lbs BMI: 24.2 Bed scale: 65kg/145lbs IBW: 50kg/110lbs %IBW: 120lbs UBW: 130lbs Age: 49 Food Allergies: NKFA Edema: 2+ pitting edema noted to BLE Last BM: None noted Skin: Pressure ulcer to right buttocks, Scab to right leg. Michael: 18 Per H and P (01/11), Patient is a 49-year-old female with a PMH of DM, GERD, HTN, Dyslipidemia comes in to the ER with c/o wound on her right inner gluteal area for past 10 days. Patient reported that wound initially started as itching and gradually worsening. She c/o pain which is localized, rated 8/10, and non-radiating and also c/o malodourous discharge from the wound. She didn't get any medical attention. Patient denies fevers, chills, urinary complaints, abdominal pain, chest pain or shortness of breath. Patient reported fatigue and generalized weakness. Patient denies any sick contacts with covid. Patient mentioned that she has weak heart but not sure about her heart condition. 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 She mentioned it happened after jaramillo. PT was admitted with dx: Severe sepsis, DMOOC, rt lower extremity non- healing wound, elevated troponin, vasomotor nephropathy, hyperkalemia, normocytic anemia, h/o HTN, hyponatremia, h/o hypertriglycemia, severe malnutrition, DVT RD Note (01/12) Pt was lying in bed during bedside visit. Pt was Peruvian speaking, and TRANSVERSE ABDOMINAL MUSCLE SURGEON helped with interpretation. Pt reported nausea this morning and denied other GI distress. Per pt, this is her first day having solid food, and she was very hungry. Pt finished 100% of her lunch tray per observation. Pt mentioned that she had slight difficulty chewing d/t her three loose teeth, and she would like to have mechanical soft diet instead. Additionally, pt said she preferred soup. Per pt, her weight had been stable and she was talking MVI at home. At home, pt followed a regular diet. Problem with: N/V/D/C: Nausea in the morning Problems with: Chewing: Yes d/t loose teeth Swallowing: No Current appetite: Good per pt Recent wt change: no per pt %wt change: no per pt Height: 5' per pt Vitamin/Supplement use: MVI per pt Special diet at home: No per pt Physical activity: No per pt Nutrition education given (specify specific nutrition education and handout given): Education on diabetic diet was given to pt. Encouraged pt to be mindful of carbohydrate containing food and try to avoid food with added sugar. Written education "Type 2 Diabetes Nutrition Therapy", "Type 2 Diabetes Label reading tips" and "vitamin K and Medication" in Peruvian were provided to pt. Pt verbalized understanding and accepted education. Food-drug interactions? Education given? Written education "vitamin K and Medication" in Peruvian was provided to pt d/t pt taking metformin at home per H and P. Pt verbalized understanding and accepted education. Estimated Nutritional Needs Based on current body weight (60kg) Energy: 8989-5867 kcal/day (30-35 kcal/kg for sepsis and wound healing) Protein: 90-120 g/day (1.5-2 g/kg for sepsis and wound healing) Fluid: 6903-7235 mL/day (20-25 mL/kcal for 2+ nonpitting edema) or per MD Nutrition Diagnosis: 1. Increased energy and protein needs r/t hypermetabolic state and skin integrity a/e/b pt has sepsis and pressure ulcer to buttocks. 2. Masticatory difficulty r/t loose teeth a/e/b pt reported having 3 loose teeth and prefers mechanical soft diet and soup. 3. Impaired nutrition utilization r/t endocrine dysfunction a/e/b pt elevated glucose 124H, and PMHx of DM Intervention 1. Recommend CCHO 60 mechanical soft diet 2. Recommend Marty BID for wound healing Paged Dr. Soliz. Waiting for response. Will follow up with recommendation the next day. Monitor/Evaluate Goal: PO intake at least 75% of estimated needs Monitor: PO intake, Labs, GI function, skin integrity F/U in 3-5 days as moderate risk /7-9
--- NOTE | 2020-01-13 16:04 | NUR ---
FLUSHED IV . IV PATENT AND INTACT. NO REDNESS . CLEOCIN INFUSING WELL AT 100CC/HR. NO REDNESS OR SWELLING.
[2020-01-13 16:13] VITALS: BP 125/70
--- NOTE | 2020-01-13 16:45 | NUR ---
ACCUCHECK DONE WITH CBG 289. REG 9 UNITS INSULIN SQ GIVEN
--- NOTE | 2020-01-13 17:34 | NUR ---
ZOSYN INFUSING WELL AT 100CC/HR. NO REDNESS OR SWELLING.
[2020-01-13 18:27] VITALS: BP 126/57
--- NOTE | 2020-01-13 19:10 | NUR ---
RECEIVED REPORT FROM BRITTANIE SPARROW. PT IS AAOX4 AND UZBEK SPEAKING ONLY. PT DENIES WEST/DIZZINESS. PT ON TELE #23, NSR WITH HR 73. PT DENIES CP/PRESSURE. PT PULSES PALPABLE AND CAP REFILL <3 SEC. PT LUNG SOUNDS CTA ON RA WITH E/U. PT DENIES SOB OR RESP DISTRESS. PT ABD SOFT/ROUND WITH ACTIVE BS X4. PT DENIES N/V/C/D. PT HAS SKY CATH IN PLACE DRAINING MADISON YELLOW URINE. PT HAS GENERALIZED WEAKNESS. PT HAS DTI TO RIGHT BUTTOCKS WITH BETADINE, GAUZE, ABD PAD. SCAB NOTED TO LEFT ANKLE, CT TECHNOLOGIST. PT DENIES S/S OF PAIN OR DISCOMFORT AT THIS TIME. PT IV TO LAC 18G AND IV TO RAC 20G PATENT AND INTACT. NAHCO3 INFUSING WELL AT 150ML/HR. CALL LIGHT WITHIN REACH. BED IN LOWEST POSITION. SIDE RAILS X2 UP. WILL CONTINUE TO MONITOR.
[2020-01-13 20:29] VITALS: BP 117/68
--- NOTE | 2020-01-13 22:20 | NUR ---
PT ASKED TO SHOWER. WILL MAKE DR. LANGSTON AWARE. WILL CONTINUE TO MONITOR.
--- NOTE | 2020-01-14 02:58 | NUR ---
PT RESTING COMFORTABLY WITH EYES CLOSED, EASILY AROUSABLE. NO ACUTE DISTRESS NOTED AT THIS TIME. NAHCO3 INFUSING WELL AT 150ML/HR. ALL NEEDS MET AT THIS TIME. CALL LIGHT WITHIN REACH. BED IN LOWEST POSITION. SIDE RAILS X2 UP. WILL CONTINUE TO MONITOR.
[2020-01-14 05:35] VITALS: BP 147/86
[2020-01-14 06:39] LABS: BASOPHIL % 0.5 % (0-2); PLATELET COUNT 167 x10^3mcL (130-400); RED CELL DISTRIBUTION WIDTH 14.4 % (11.5-14.5)
--- NOTE | 2020-01-14 06:52 | NUR ---
PT RESTED COMFORTABLY WITH EYES CLOSED DURING THE NIGHT, EASILY AROUSABLE. NO ACUTE DISTRESS NOTED DURING THE NIGHT. PT BREATHING E/U. COMFORT AND SAFETY MEASURES MAINTAINED. ALL QUESTIONS AND CONCERNS ADDRESSED. PT COMPLIED WITH NURSING CARE DURING THE NIGHT. NAHCO3 INFUSING WELL AT 150ML/HR. CALL LIGHT WITHIN REACH. BED IN LOWEST POSITION. SIDE RAILS X2 UP. WILL ENDORSE TO DAY SHIFT NURSE.
--- NOTE | 2020-01-14 07:00 | NUR ---
RECEIVED REPORT FROM LEON SPARROW Pt LYING IN BED WITH EYES CLOSED BUT AROUSABLE A&O X4 ON TELE 23 NSR DENIES ANY CHEST PAIN OR PRESSURE. RECEIVED ON RA LUNGS CTA BILAT DENIES ANY SOB AT THIS TIME. SKY CATHETER DRAINING TO GRAVITY MADISON YELLOW URINE. OPEN WOUND ON RIGHT BUTTOCK COVERED WITH DRESSING C/D/I. IV ON RAC AND LAC PATENT ABD INTACT NO REDNESS OR EDEMA. ALL NEEDS ATTENDED TO AT THIS TIME. BED IN LOWEST POSITION CALL LIGHT WITHIN REACH. WILL CONTINUE TO MONITOR.
[2020-01-14 07:18] LABS: CALCIUM 7.5 mg/dL (8.5-10.1); CARBON DIOXIDE 24.5 mmol/L (21-32); CHLORIDE SERUM 104 mmol/L (98-107); CREATININE SERUM 0.7 mg/dL (0.6-1.0); GFR1 > 60 mL/min; GLUCOSE SERUM 127 mg/dL (74-106); MAGNESIUM 1.6 mg/dL (1.8-2.4); PHOSPHOROUS 2.6 mg/dL (2.5-4.9); POTASSIUM SERUM 3.4 mmol/L (3.5-5.1); SODIUM SERUM 137 mmol/L (136-145)
--- NOTE | 2020-01-14 07:34 | NUR ---
ENDORSED CARE TO CRYSTAL RN. ALL QUESTIONS AND CONCERNS ANSWERED.
--- NOTE | 2020-01-14 09:00 | NUR ---
IV ON RAC FOUND COMING OUT NO BLEEDING NOTED CATHETER INTACT. NO REDNESS OR EDEMA.ALL NEEDS ATTENDED TO
--- NOTE | 2020-01-14 09:00 | NUR ---
Assisted Theresa SPARROW with placement of wound vac. Administered tylenol for 6/10 pain. Pt tolerated well all questions and concerns addressed explained care of wound vac to Pt Kentrell MOSQUEDA to help translate.
--- NOTE | 2020-01-14 09:08 | NUR ---
WOUND CARE NOTE: WOUND ASSESSMENT TO RIGHT GLUTEAL S/P I&D SURGICAL WOUND [id number] WOUND BED WHITE IN COLOR, UNDERMINING 12-3 O'CLOCK 1.5CM PINK IN COLOR,MODERATE AMOUNT SEROUS DRAINAGE, WOUND VAC DRESSING APPLY . PT. TOLERATE PROCEDURES WELL, RIGHT LATERAL LOWER LEG, DRY BROWN SCABS 4X3XM, FRANCHESCA-WOUND SKIN INTACT, NO INDURATION, NO ERYTHEMA.RECOMMEND TO PAINT WITH BETADINE SOLUTION BID AND LEAVE IT STUDIO ASSISTANT, PRIMARY RN MADE AWARE. PT. NAURUAN SPEAKING, PRIMARY RN AT BED SIDE TRANSLATED IN NAURUAN,POC DISCUSSED AND ALL QUESTIONS ANSWERED. PT. VERBALIZES UNDERSTANDING.
[2020-01-14 09:18] VITALS: BP 123/68
[2020-01-14 12:34] VITALS: BP 147/81
--- NOTE | 2020-01-14 12:35 | NUR ---
Pt SITTING UP IN BED EATING LUNCH TOLERATING DIET DENIES NAY N/V
--- NOTE | 2020-01-14 12:41 | NUR ---
Discount pharmacy card and list to low cost medical clinics given to patient.
[2020-01-14 14:02] LABS: PLATELET COUNT 429 x10^3mcL (130-400); RED CELL DISTRIBUTION WIDTH 13.6 % (11.5-14.5)
[2020-01-14 14:03] LABS: BASOPHIL % 0.4 % (0-2)
[2020-01-14 14:07] LABS: BILIRUBIN TOTAL 0.1 mg/dL (0.20-1.00); CALCIUM 7.2 mg/dL (8.5-10.1); CARBON DIOXIDE 20.1 mmol/L (21-32); POTASSIUM SERUM 4.7 mmol/L (3.5-5.1)
[2020-01-14 14:26] LABS: ALBUMIN 1.2 g/dL (3.4-5.0); TOTAL PROTEIN, SERUM 5.6 g/dL (6.4-8.2)
--- NOTE | 2020-01-14 14:45 | NUR ---
INSERTED NEW IV ON RFA 20G PATENT AND INTACT Pt TOLERATED WELL. INFUSING WELL. REMOVED IV ON LAC Pt STATED IT WAS HURTING NO RENESS NOTED. CATHETER INTACT DRESSING APPLIED.
--- NOTE | 2020-01-14 15:59 | NUR ---
HUNG MG 2G IVPB FOR REPLACEMENT Pt TOLERATING WELL NO ADVERSE REACTIONS NOTED
--- NOTE | 2020-01-14 16:08 | NUR ---
PHYSICAL THERAPY NOTE PATIENT REFUSED TREATMENT AND EVAL TODAY. PATIENT EDUCATED WITH BENEFITS OF TREATMENT TO INCREASE OVERALL FUNCTIONAL MOBILITY. PATIENT REPORTS INCREASE OVERALL FATIGUE AND UNABLE TO ENCOURAGE. NURSING AWARE. WILL ATTEMTP NEXT VISIT.
--- NOTE | 2020-01-14 16:50 | NUR ---
BLOOD SUGAR 307 ADMINISTERED 18 UNITS OF REGULAR INSULIN 12 FOR COVERAGE AND 6 SCHEDULAED. Pt TOLERATED WELL NO ADVERSE REACTIONS NOTED. ALL NEEDS ATTENDED TO. Pt LYING IN BED IN NO APARENT DISTRESS. SAFETY PRECAUTIONS IN PLACE. WILL CONTINUE TO MONITOR.
[2020-01-14 17:34] VITALS: BP 134/75
--- NOTE | 2020-01-14 17:54 | NUR ---
REMOVED TELE MONITOR PT NOW MED SURG. CLEANED AND GIVEN BACK TO DISC INSPECTOR. Pt DENIES ANY PAIN OR DISCOMFORT AT THIS TIME. IV INFUSING WELL. ALL NEEDS ATTENDED TO. BED INLOWEST POSITION CALL LIGHT WITHINREACH. WILL CONTINUE TO MONITOR.
--- NOTE | 2020-01-14 19:29 | NUR ---
DR MILLER AT BEDSIDE UPDATING Pt ON POC , TODD MOSQUEDA TRANSLATING GAVE REPORT TO TIA SPARROW. Pt SITTING UP IN BED A&O X4 ON TELE DENIES ANY CHEST PAIN OR PRESSURE. SKY DRAINING TO GRAVITY. ALL NEEDS ATTENDED TO. BED IN LOWEST POSITION CALL LIGHT WITHIN REACH. WOUND VAC ATTACHED C/D.
--- NOTE | 2020-01-14 20:17 | NUR ---
Received pt. from day shift, currently resting in bed. Pt. is a/o x4, able to make needs known, able to follow comands,no c/o h/a, primarily Gibraltarian speaking only. Pt. at this time crying, as per CRIME SCENE TECHNICIAN, pt. states that someone earlier told her that her kidneys were doing fine, but then a surgeon came in recently and told her they are doing bad. Dr. Christianson, nephro at bedside at this time and explaining that there was a mishap in labs. Residential Appraiser at bedside, explaining this, pt. shows and verbalizes understanding at this time. As per leoncio, pt. needs a stent placed, can try to get a team together for tomorrow, but no guarantee d/t it beign friday. plans for friday scheduling, but will make phone calls at this time. Beka, pt. stable, breathing e/u on r/a, no acute distress, no c/o of pain or s/o discomfort. Smith draining c/y w/ some sediment. Pt. on monitor for UOP on this time, CR lvl @ 4, will cont. to monitor.
[2020-01-14 20:37] VITALS: BP 123/78
--- NOTE | 2020-01-15 00:46 | NUR ---
Pt. noted to be resting throughout shift. Explained to pt. that she will have her kidney surgery as mentioned by MD at change of shift. Pt. stated she would like to talk to the MD more and have him answer more questions prior to signing and doing the surgery. Will print out paperwork, continue to monitor, and prep pt. for surgery. no acute changes noted.
--- NOTE | 2020-01-15 05:08 | NUR ---
Pt. noted to be resting throughotu shift, no acute distress. Pt. stable, pt. requests to talk to the MD prior to surgery this AM, otherwise, pt. arminda, will cont. to monitor and endorse care to next shift Rn.
--- NOTE | 2020-01-15 05:25 | NUR ---
MD called at this time to clarify order for consent to be signed and for clarification on order for pain, pt. still stable. will cont. to arnaldo.
[2020-01-15 05:53] VITALS: BP 143/79
--- NOTE | 2020-01-15 06:08 | NUR ---
Pt. noted to have 1400 UOP, yellow and cloudy. Will cont. to monitor.
--- NOTE | 2020-01-15 07:00 | NUR ---
RECEIVED REPORT FROM TIA PASCUAL RN Pt TO GO TO O.R. FOR PROCEDURE. Pt A&O X4 DENIES ANY PAIN AT THIS TIME. WOUND VAC IN PLACE C/D/I. SKY CATHETER DRAINING TO GRAVITY STRAW YELLOW URINE NOTED WITH SEDIMENT. IV ON RFA PATENT AND INTACT NO REDNESS OR EDEMA. PT REFUSING SURGERY STATED "I'D RATHER WAIT" O.R. NURSE BRIGID SPARROW TRANSLATING ANSWERING ALL QUESTIONS AND CONCERNS.
--- NOTE | 2020-01-15 07:02 | NUR ---
Pedro from OR given report at this time, will endorse to next shift rn.
--- NOTE | 2020-01-15 07:20 | NUR ---
DR MILLER AT BEDSIDE ANSWERING ALL QUESTIONS AND CONCERNS
[2020-01-15 07:43] LABS: BASOPHIL % 0.4 % (0-2); PLATELET COUNT 275 x10^3mcL (130-400); RED CELL DISTRIBUTION WIDTH 13.9 % (11.5-14.5)
[2020-01-15 07:47] LABS: CALCIUM 7.6 mg/dL (8.5-10.1); CARBON DIOXIDE 20.4 mmol/L (21-32); CREATININE SERUM 3.8 mg/dL (0.6-1.0); MAGNESIUM 2.2 mg/dL (1.8-2.4); PHOSPHOROUS 5.4 mg/dL (2.5-4.9); POTASSIUM SERUM 4.6 mmol/L (3.5-5.1)
[2020-01-15 07:54] VITALS: BP 143/79
--- NOTE | 2020-01-15 09:15 | NUR ---
DR ANGELO AND ERI AT BEDSIDE UPDATING Pt ON POC ARLETH RN FOR TRANSLATION. ALL QUESTIONS AND CONCERNS ADDRESSED TO Pt CONCERNING OPERATION. Pt AGREEABLE TO SURGERY WILL LIKE TO TALK TO DR MILLER
[2020-01-15 11:43] LABS: ERYTHROCYTE SED RATE 102 mm/hr (0-30)
[2020-01-15 12:30] VITALS: BP 122/77
--- NOTE | 2020-01-15 13:13 | NUR ---
PER DR ANGELO NO SURGERY TODAY UPDATED Pt ON POC
--- NOTE | 2020-01-15 15:10 | NUR ---
Pt LYING IN BED WITH EYES CLOSED IN NO APARENT DISTRESS. CHEST RISE EQUAL AND UNLABORED. WOUND VAC FUNCTIONING WELL IV INFUSING AND SKY DRAINING TO GRAVITY. ALL NEEDS ATTENDED TO. BED IN LOWEST POSITION CALL LIGHT WITHIN REACH. WILL CONTINUE TO MONITOR.
--- NOTE | 2020-01-15 15:18 | NUR ---
P.T. NOTES P.T. EVAL COMPLETED; WILL BENEFIT W/ P.T. POST ACUTE STAY. BP=99/60 (SITTING), 75/46 (STANDING), 104/66 (SUPINE, POST TX)
[2020-01-15 17:05] VITALS: BP 111/77
--- NOTE | 2020-01-15 18:43 | NUR ---
Pt SITTING UP IN BED C/O BEING VERY TIRED. WOUND VAC IN PLACE SUCTIONING WELL. C/D/I. ON TELE 23 DENIES ANY CHEST PAIN OR PRESSURE. SKY CATHETER DRAINING TO GRAVITY STRAW YELLOW URINE WITH SEDIMENT WHITE NOTED. IV ON RFA PATENT AND INTACT INFUSING WELL.ALL NEEDS ATTENDED TO ALL SAFETY PRECAUTIONS IN PLACE. WILL ENDORSE CARE TO NIGHT RN.
--- NOTE | 2020-01-15 19:34 | NUR ---
Received pt. from day shift, currently resting in bed. pt. is a/o x4, able to make simple needs known, able to follow simple commands, no c/o h/a, primarily Romanian speaking and has vision problems in MARION eyes. Pt. is breathing e/u, on RA, no s/o acute distress or SOB. Pt. has no c/o pain at this time or s/o discomfort. Pt. NSR on tele 23, no c/o chest pain at this time. Pt. on mcconnell cath, draining yellow and cloudy to gravity. Pt. still has no BM at this time, will cont. to monitor. Pt. gen weakenss and wound vac to r buttocks, slight drainage, white and abhi like in wound vac. Pt. still on Na HCO3, running at 125 cc/hr, will change bag at this time. Otherwise, pt. stable, no s/o acute distress, pt.s afety in check, call light placed within reach, will cont. to monitor.
[2020-01-15 21:37] VITALS: BP 118/69
--- NOTE | 2020-01-16 | NUR ---
Pt. resting thorughout shift, resting w/ eyes closed, easily arousable using verbal stimuli. Pt. mcconnell still draining cloudy and yellow. No acute distress noted. Pt. resting well in bed, able to make needs known. Dressing in tact on R hip s/p debridement. Will cont. to monitor.
--- NOTE | 2020-01-16 04:18 | NUR ---
Pt. resting throughout shift w/ eyes clsoed, able to make needs known. NO acute distress, will cont. to monitor.
--- NOTE | 2020-01-16 05:08 | NUR ---
made aware that pt. hasn't passed BM since 01/11/2020. will put new orders in at this time.
[2020-01-16 05:18] VITALS: BP 149/87
--- NOTE | 2020-01-16 06:20 | NUR ---
Pt. noted to be resting throughout shift, no acute distress. Able to make needs known, mcconnell draining yellow and cloudy still, no acute pain, will cont. to monitor and endorse to next shift RN.
[2020-01-16 07:24] LABS: BASOPHIL % 0.1 % (0-2); PLATELET COUNT 367 x10^3mcL (130-400); RED CELL DISTRIBUTION WIDTH 13.8 % (11.5-14.5)
[2020-01-16 07:32] LABS: CALCIUM 7.6 mg/dL (8.5-10.1); CARBON DIOXIDE 24.6 mmol/L (21-32); CREATININE SERUM 3.5 mg/dL (0.6-1.0); PHOSPHOROUS 4.9 mg/dL (2.5-4.9); POTASSIUM SERUM 4.5 mmol/L (3.5-5.1)
--- NOTE | 2020-01-16 07:35 | NUR ---
RECEIVED PT IN BED AWAKE, VERBALLY RESPONSIVE. IN NO ACUTE RESPIRATORY DISTRESS. DENIES PAIN OR DISCOMFORT AT THIS TIME. ON TELE 23. SKY CATH DRAINING WITH YELLOW-CLOUDY URINE. WOUND VAC IN PLACE. IV SITE TO RIGHT AC RUNNING ON SODIUM BICARB AT 125CC/HR. BED IN LOWEST POSITION. CALL LIGHT WITHIN REACH. WILL CONTINUE TO MONITOR.
[2020-01-16 09:03] VITALS: BP 148/85
--- NOTE | 2020-01-16 11:20 | NUR ---
PT WAS SEEN BY COLLEEN YORK (GENERAL SURGEON), PER MANDY YORK TO SHOWER AND CONTINUE WOUND VAC TREATMENT REGIMEN.
[2020-01-16 16:39] VITALS: BP 136/81
--- NOTE | 2020-01-16 17:20 | NUR ---
WOUND VAC TREATMENT DONE TO RIGHT BUTTOCK DONE ORDERED. DRESSING WAS SOILED FROM .
--- NOTE | 2020-01-16 19:17 | NUR ---
ENDORSE PATIENT TO INCOMING NURSE. PATIENT IN BED AT THIS TIME AOX3 ANDORRAN SPEAKING. DENIES PAIN OR DISCOMFORT. IN NO ACUTE RESPIRATORY DISTRESS, DENIES SOB. ON TELE 23. SKY CATH DRAINING WITH YELLOW CLOUDY URINE. IV SITE TO RIGHT AC RUNNING ON SODIUM BICARB AT 125CC/HR, IV INTACT AND PATENT. BED IN LOWEST POSITION. CALL LIGHT WITHIN REACH.
--- NOTE | 2020-01-16 19:25 | NUR ---
Received pt. from day shift, currently resting in bed. pt. is a/o x4, able to make simple needs knonw, able to follow simple commands, no c/o h/a, Bermudian speaking only. pt. is breathing e/u on Ra, no acute distress or SOB noted. Pt. has no c/o pain at this time. Pt. wound was seen by MD today, cont. abx, and saw wound today. Pt. still on mcconnell cath, draining jairo and cloudy, will cont. to monitor. Pt. able to pass bm today as per day shift, otherwise, pt. stable, IV site patent, dressing CDI. Pt. bed set at lowest postiion, call light placed withinr each, will cont.t o monitor.
[2020-01-16 21:26] VITALS: BP 149/83
--- NOTE | 2020-01-17 00:31 | NUR ---
Pt. noted to resting in bed, mcconnell still draining cloudy and jairo, no c/o of pain or s/o distress or discomfort. Pt. breathing e/u on RA. Will cont. to monitor
[2020-01-17 05:19] VITALS: BP 130/81
--- NOTE | 2020-01-17 05:38 | NUR ---
Will endorse c are to next shift RN.
--- NOTE | 2020-01-17 05:40 | NUR ---
pt. noted to be resting throughout shift, and medication to help her pass bm really is helping her. pt. had concern about not feeling clean about automotive painter cleanign her, checked w/ other rn and pt. was clean. pt. benefits from yemeni speaking staff because pt. is unable to speak croatian, can only understand and speak a few words. otherwise, pt. stable, dressing in tact, draining to wound vac, pt. mcconnell draining to gravity jairo and cloudy, no acute distress or pain noted. will cont. to monitor and endorse care to next shift rn.
[2020-01-17 07:14] LABS: CALCIUM 8.1 mg/dL (8.5-10.1); CARBON DIOXIDE 27.5 mmol/L (21-32); CREATININE SERUM 3.2 mg/dL (0.6-1.0); POTASSIUM SERUM 4.2 mmol/L (3.5-5.1)
[2020-01-17 07:30] LABS: BASOPHIL % 0.3 % (0-2); RED CELL DISTRIBUTION WIDTH 13.6 % (11.5-14.5)
--- NOTE | 2020-01-17 07:30 | NUR ---
RECEIVED REPORT FROM TIA SPARROW PM AT BEDSIDE, PT SLEEPING IN BED, IN NO APPARENT ACUTE DISTRESS, NO APPARENT PAIN/DISCOMFORT, RESP E/U, RA, NO SOB/COUGH, 96%, TELE #23, SR, ABD ROUND/NON-TENDER TO TOUCH, BS ACTIVE X 4, PALP PULSES CAP REFILL < 2S, SEE SHIFT ASSESSMENT, SEE SKIN ASSESSMENT, FC PATENT AND DRAINED WELL, CLOUDY, YELLOW, NO SEDIMEN, IV PATENT AND INFUSING WELL, DRESSING CDI, WOUND VAC PATENT AND SUCTION WELL, SKIN C/D/W, ALL NEEDS ADDRESSED, SAFETY PROTOCOL FOLLOWED, CONTINUE TO MONITOR
[2020-01-17 07:37] LABS: PLATELET COUNT 467 x10^3mcL (130-400)
--- NOTE | 2020-01-17 07:57 | NUR ---
GOLF BALL MOLDER DARSHANRE AWARE OF PT THIS AM BLOOD SUGAR LEVEL, SAID WILL LOOK AT ORDER, GOLF BALL MOLDER NILO TALKED TO PT AT BEDSIDE, PT AWARE
[2020-01-17 08:37] VITALS: BP 126/76
--- NOTE | 2020-01-17 09:43 | NUR ---
AM MED GIVEN PER MD ORDER, TOLERATED WELL, NO ASE NOTED AT THIS TIME, EDUCATED PT R/T MED, ASE AND MONITOR, VERBALLY UNDERSTANDING, TOLERATED BREAKFAST WELL, DENIED PAIN/DISCOMFORT, DENIED CP/PALPITATION, DENIED WEST/N/V/D, ALL NEEDS ADDRESSED, SAFETY PROTOCOL FOLLOWED, SEEN BY PT FOR EVAL, CONTINUE TO MONITOR
--- NOTE | 2020-01-17 11:07 | NUR ---
PHYSICAL THERAPY DAILY NOTES CO-SIGN All documentation done by the Tax Economist for 01/17/20 has been reviewed. I agree with the documentation. Reviewed/Co-Signed by: Jayme Beltran PT Documentation Done by: ALLEGRA GARG, BOARD CERTIFIED BEHAVIORAL ANALYST
--- NOTE | 2020-01-17 11:35 | NUR ---
BS CHECKED AND INSULIN GIVEN PER SLIDING SCALE VIA EMAR, TOLERATED WELL, NO ASE NOTED, EDUCATED PT R/T DM, BS, INSULIN, ASE AND MONITOR, VRBALLY UNDERSTANDING, ALL NEEDS ADDRESSED, CONTINUE TO MONITOR
--- NOTE | 2020-01-17 11:54 | NUR ---
PT REPORTED MOD PAIN TO SURGICAL WOUND SITE, 02/17, LOCAL, PRN MED GIVEN PER MD ORDER, TOLERATED WELL, EDUCATED PT R/T MED, ASE AND MONITOR, VERBALLY UNDERSTANDING, BM X 1, LARGE, SOFT, SKIN C/D/W, ALL NEEDS ADDRESSED, SAFETY PROTOCOL FOLLOWED, CONTINUE TO MONITOR
[2020-01-17 12:52] VITALS: BP 161/90
--- NOTE | 2020-01-17 14:32 | NUR ---
PT RESTING IN BED, IN NO ACUTE DISTESS, DENIED PAIN/DSICOMFORT, DENIED WEST/N/V/D, DENIED CP/PALPITATION, TOLERATED LUNCH WELL, ALL NEEDS ADDRESSED, IV PATENT AND INFUSING WELL, DRESSING CDI, WOUND VAC IN PLACE AND FUNCTION WELL, FC PATENT AND DRAINED WELL, CONTINUE TO MONITOR
--- NOTE | 2020-01-17 16:21 | NUR ---
BS CHECKED AND INSULIN GIVEN PER MD ORDER VIA EMAR, TOLERATED WELL, NO ASE NOTED, EDUCATED PT R/T DM, BS, INSULIN, ASE AND MONITOR, VERBALLY UNDERSTANDING, ALL NEEDS ADDRESSED, CONTINUE TO MONITOR
[2020-01-17 16:42] VITALS: BP 175/93
--- NOTE | 2020-01-17 17:29 | NUR ---
PT SEEN BY DR DARY DIAZ LENS BLOCK GAUGER, NNO, PT AWARE, OF CURRENT CONDITION, ALL NEEDS ADDRESSED, PT REPORTED N/V, PRN MED GIVEN, TOLERATED WELL, ALL NEEDS ADDRESSED, SAFETY PROTOCOL FOLLOWED, CONTINEU TO MONITOR
--- NOTE | 2020-01-17 17:56 | NUR ---
PT RESTING IN BED, IN NO ACUTE DISTRESS, RESP E/U, RA, 96%, NO SOB/COUGH, TELE, DENIED PAIN/DISCOMFRT, DENIED CP/PALPITATION, DENIED WEST/N/V/D, TOLERATED DINNER WELL, IV PATENT AND INFUSING WELL, DRESSING CDI, WOUND VAC PATENT AND FUNCTION PER ORDER, WOUND DRESSING CDI, MINIMAL DRAINAGE, SEROSANGUINOUS IN COLLECTING CHAMBER, FC PATENT AND DRAINED WELL, CLOUDY, YELLOW, NO SEDIMEN, SKIN C/D/W, ALL NEEDS ADDRESSED, SAFETY PROTOCOL FOLLOWED, CONTINUE TO MONITOR
--- NOTE | 2020-01-17 20:00 | NUR ---
RECEIVED PT IN BED AWAKE, ALERT, ORIENTED X4/ SPEECH CLEAR. ABLE TO MAKE NEEDS KNOWN. DANISH SPEAKING BUT UNDERSTANDS SOME AMHARIC. TELE 23 SHOWS NSR. NO CHEST PAIN NOTED. DENIES PRESSURE. BREATHING EASILY ON ROOM AIR, NO RESPIRATORY DISTRESS NOTED. LUNG SOUNDS CLEAR. BS ACTIVE IN ALL FOUR QUADS. NO ABD PAIN NOTED. LAST BM TODAY, INCONTINENT OF BOWELS. SKY DRAINING TO GRAVITY, YELLOW URINE WITH CLOUDY SEDIMENTS IN TUBING. GENERALIZED WEAKNESS NOTED. PT WITH OPEN WOUND TO RIGHT BUTTOCKS, DRESSING IS CDI WITH WOUND VAC IN PLACE. NO PAIN NOTED. IV TO RAC INFUSING SODIUM BICARB AT 75ML/HR. SITE INTACT. SHIFT ASSESSMENT COMPLETED. CALL LIGHT WITHIN REACH. BED IS IN LOWEST POSITION. WILL CONTINUE T0 MONITOR CLOSELY.
[2020-01-17 20:53] VITALS: BP 154/83
[2020-01-18] VITALS (8 sets, daily range): BP systolic 128–169; BP diastolic 76–90
--- NOTE | 2020-01-18 01:00 | NUR ---
PT HAD BM, SOFT. SOILED WOUND VAC DRESSING, NEW DRESSING APPLIED. IV TO RFA REMOVED. NEW IV INSERTED TO LEFT HAND, 22G. IVF INFUSING WELL AT THIS TIME. ZOSYN HUNG ORDERED AND INFUSING WELL. CALL LIGHT WITHIN REACH. BED IS IN LOWEST POSITION. WILL CONTINUE TO MONITOR CLOSELY.
--- NOTE | 2020-01-18 07:01 | NUR ---
CHANGED PT GOWN, PT HAD SOFT LARGE BM. FSBS IS 254. ALL NEEDS TENDED TO. CALL LIGHT WITHIN REACH. WILL ENDORSE TO INCOMING SHIFT.
[2020-01-18 07:13] LABS: BASOPHIL % 0.2 % (0-2); RED CELL DISTRIBUTION WIDTH 13.5 % (11.5-14.5)
--- NOTE | 2020-01-18 07:25 | NUR ---
RECEIVED PT FROM PARTS COUNTER SPECIALIST. NO ACUTE DISTRESS NOTED AT THIS TIME.
[2020-01-18 07:26] LABS: CALCIUM 7.9 mg/dL (8.5-10.1); CARBON DIOXIDE 28.5 mmol/L (21-32); CREATININE SERUM 3.2 mg/dL (0.6-1.0); POTASSIUM SERUM 4.3 mmol/L (3.5-5.1)
[2020-01-18 07:35] LABS: PLATELET COUNT 453 x10^3mcL (130-400)
--- NOTE | 2020-01-18 09:52 | NUR ---
PT REFUSING LACTULOSE/COLACE AT THIS TIME. PER PATIENT, SHE WAS CONSTIPATED FRIDAY BUT IS NO LONGER HAVING AN ISSUE WITH BOWEL MOVEMENTS. WILL MONITOR.
--- NOTE | 2020-01-18 10:00 | NUR ---
MORNING ASSESSMENT/MED PASS COMPLETE. PT AWAKE, ALERT. A/OX4. DENIES HEADACHE. PT ON TELE 23, NSR HR 87. DENIES CHEST PAIN. PT ON ROOM AIR WITH NO RESP DISTRESS NOTED. LUNGS CTA. PERIPHERAL PULSES PALPABLE, NO EDEMA NOTED. IV ACCESS LEFT HAND, CDI INFUSING 1/2NS WITH NA BICARB AT 75ML/HR. ACTIVE BS NOTED. ABDOMEN SOFT AND NONTENDER. PT DENIES CONSTIPATION. PT HAS SKY CATH SECURED IN PLACE WITH YELLOW URINE DRAINING TO GRAVITY. SOME SEDIMENT NOTED. PT HAS WOUND TO RIGHT BUTTOCKS WITH WOUND VAC IN PLACE. CDI. PT DENIES PAIN AT THIS TIME. SAFETY MEASURES IN PLACE, BED LOW AND LOCKED. CALL LIGHT WITHIN REACH.
--- NOTE | 2020-01-18 12:10 | NUR ---
WOUND VAC, IN PLACE AND FUNCTIONING, PT EATING LUNCH,POC DISCUSSED WITH PT. ABOUT WOUND CARE, NO WOUND VAC UPON DISCHARGED DUE TO NO INSURANCE/HOME HEALTH INFORMATION SYSTEMS ADMINISTRATOR CURTIS TRANSLATED IN MAORI, ALL QUESTIONS ANSWERED, PT. AGREEABLE WITH PLAN.
--- NOTE | 2020-01-18 12:16 | NUR ---
PT BLOOD PRESSURE 167/90 HR 85. HYDRALAZINE 10MG PO ADMINISTERED ORDERED PRN. WILL MONITOR.
--- NOTE | 2020-01-18 12:24 | NUR ---
PHYSICAL THERAPY DAILY NOTES CO-SIGN All documentation done by the Special Forces Communications Sergeant for 01/18/20 has been reviewed. I agree with the documentation. Reviewed/Co-Signed by: Jayme Beltran PT Documentation Done by: ALLEGRA GARG, OUTLET MANAGER
--- NOTE | 2020-01-18 15:08 | NUR ---
SPOKE WITH MADDIE REGARDING PT HIGH BP AND NOT ON TELE, UNABLE TO GIVE BP PRNS NOT ON TELE. PER MADDIE HIGHBALLER, PUT PT BACK ON TELE.
--- NOTE | 2020-01-18 15:28 | NUR ---
PT PLACED ON TELE 11, BUSINESS RELATIONSHIP MANAGER AT BEDSIDE RE-TAKING VITALS. PT BP 137/76 HR 79 AT THIS TIME. NO ACUTE DISTRESS NOTED.
--- NOTE | 2020-01-18 16:06 | NUR ---
Follow-up Nutrition Assessment: 234B ROCHELLE FRIEDMAN 49F MR FU Dx: Sepsis hyperkalemia, Renal failure PMHx: DM, GERD, HTN, Dyslipidemia Labs: (01/17) Na 134L, BG 244H, BUN 62H, Cr 3.2H, WBC 13.5H, H/H 8.6/26L Meds: Apresolin, Colace Flomax, Lactulose, Lantus, Lipitor, Lopressor, Norvasc, Sodium bicarbonate, Vancomycin, Zosyn PRN meds: D 50%, Dilaudid, Humulin, Hydralazine, Miralax, Normodyne, Zofran Diet: CCHO 60, Cardiac diet PO Intake: 75-100% x 5 meals with average PO intake of 90% since last visit. Weights: (01/17) 60kg/132lbs (01/12) bedscale: 65kg/145lbs Edema: none noted Last BM: 01/17 Skin: pt has open wound to right buttocks with wound vac in place Michael: [address] (01/12) Pt was lying in bed during bedside visit. Pt was Telugu speaking, and HONING MACHINE SET UP OPERATOR helped with interpretation. Pt reported nausea this morning and denied other GI distress. Per pt, this is her first day having solid food, and she was very hungry. Pt finished 100% of her lunch tray per observation. Pt mentioned that she had slight difficulty chewing d/t her three loose teeth, and she would like to have mechanical soft diet instead. Additionally, pt said she preferred soup. Per pt, her weight had been stable and she was talking MVI at home. At home, pt followed a regular diet. Marty BID was recommended. RD Note (01/17): Per pt's primary RN, pt had fair appetite, and RN reported that pt did not complain about chewing/swallowing difficulty. Additionally, RN mentioned that pt did not take Marty, and RN was willing to mix them with water and encourage pt to drink them. With 90% average PO intake, pt's diet provided 1555kcal and 83g protein, meeting > 75% estimated kcal and protein needs. Estimated Nutritional Needs Based on current body weight (60kg) Energy: 1778-3035 kcal/day (30-35 kcal/kg for sepsis and wound healing) Protein: 90-120 g/day (1.5-2 g/kg for sepsis and wound healing) Fluid: 8018-2582 mL/day (20-25 mL/kcal for 2+ nonpitting edema) or per MD Nutrition Diagnosis: (ongoing) 1. Increased energy and protein needs r/t hypermetabolic state and skin integrity a/e/b pt has sepsis and pressure ulcer to buttocks. (ongoing) 2. Masticatory difficulty r/t loose teeth a/e/b pt reported having 3 loose teeth and prefers mechanical soft diet and soup. (ongoing) 3. Impaired nutrition utilization r/t endocrine dysfunction a/e/b pt elevated glucose 124H, and PMHx of DM Intervention: 1. Recommend Mechanical soft CCHO 60, cardiac diet 2. Recommend continue Marty BID for wound healing Monitor/Evaluate: Goal: Have pt meet at least 75% of estimated needs (met, ongoing goal) Monitor: PO intake, ONS intake, Labs, GI function, Skin integrity F/U 3-5 days as moderate risk 01/20-
--- NOTE | 2020-01-18 16:07 | NUR ---
1. Recommend Mechanical soft CCHO 60, cardiac diet 2. Recommend continue Marty BID for wound healing
--- NOTE | 2020-01-18 17:33 | NUR ---
DUE MEDICATIONS ADMINISTERED. PT UP EATING DINNER AT THIS TIME. DENIES PAIN. NO ACUTE DISTRESS NOTED. SAFETY MAINTAINED.
--- NOTE | 2020-01-18 18:50 | NUR ---
PT STABLE AT THIS TIME. ALL NEEDS TENDED TO THROUGHOUT SHIFT. ENCOURAGED PT TO DRINK JAMES RECOMMEDED BY CORD CUTTER. PER PATIENT, SHE IS TAKING THE JAMES. WILL CONTINUE TO MONITOR AND ENDORSE CARE TO DIRECTOR WOMEN.
--- NOTE | 2020-01-18 20:00 | NUR ---
PATIENT RECEIVED AWAKE, ALERT, ORIENTED X4 IN BED, LUXEMBOURGISH SPEAKING. RESPIRATION EVEN AND UNLABORED, ON ROOM AIR. ONGOING 1/2 NS WITH NA BICARB AT 40 ML/HR INFUSING WELLON THE LEFT HAND. DENIES DISCOMFORT. LBM 01/17. SKY CATHETER TO GRAVITY DRAINING YELLOW COLORED URINE. GENERALIZED WEAKNESS, NEEDS ASSISTANCE WITH ADL'S. WOUND TO R BUTTOCKS TO WOUND VAC. ON TELE #11. WILL CONTINUE TO MONITOR.
[2020-01-19 04:56] VITALS: BP 145/77
[2020-01-19 06:00] VITALS: BP 111/72
--- NOTE | 2020-01-19 06:57 | NUR ---
PATIENT RESTING IN BED. RESPIRATION EVEN AND UNLABORED,ON ROOM AIR. WOUND TO WOUND VAC INTACT. IV SITE NO SIGN OF INFILTRATION. SKY CATHETER PATENT AND INTACT. ASSISTED WITH NEEDS. SAFETY OBSERVED. PLACED BED IN THE LOWEST POSITION. PLACED CALL LIGHT WITHIN REACH AT ALL TIMES.
[2020-01-19 07:04] LABS: BASOPHIL % 0.5 % (0-2); RED CELL DISTRIBUTION WIDTH 14.1 % (11.5-14.5)
--- NOTE | 2020-01-19 07:15 | NUR ---
RECEIVED REPORT FROM NIGHT RN YOAN Pt SITTING UP IN BED A&O X4 DENIES ANY PAIN AT THIS ITME. LUNGS CTA BILAT ON RA 97% DENIES ANY AOB. WOUND VAC INPLACE FUNCTIONING WELL. IV ON LEFT HAND INFUSING WELL NO REDNESS OR EDEMA. ON TELE MONITOR. SKY DRAINING TO GRAVITY YELLOW URINE NOTED. ALL NEEDS ATTENDED TO. SAFETY PRECAUTIONS IN PLACE. WILL CONTINUE TO MONITOR.
[2020-01-19 07:23] LABS: CALCIUM 7.7 mg/dL (8.5-10.1); CARBON DIOXIDE 27.7 mmol/L (21-32); CREATININE SERUM 3.1 mg/dL (0.6-1.0); MAGNESIUM 1.9 mg/dL (1.8-2.4); PLATELET COUNT 448 x10^3mcL (130-400)
[2020-01-19 07:30] VITALS: BP 146/86
--- NOTE | 2020-01-19 09:40 | NUR ---
ADMINISTERED IVPB ZOSYN Pt DENIES ANY PAIN NO ADVERSE REACTIONS NOTED. ALL QUESTIONS AND CONCERNS ADDRESSED. SAFETY PRECAUTIONS IN PLACE. WILL CONTINUE TO MONITOR.
[2020-01-19 13:55] VITALS: BP 141/84
--- NOTE | 2020-01-19 13:57 | NUR ---
Pt WALKED WITH Pt TO BATHROOM WITH A WALKER. Pt STATING SHE IS DIZZY , ENCOURAGED Pt TO SIT AT THE EDGE OF BED WHEN EATING. ALL NEEDS ATTENDED TO. BED IN LOWEST POSITION CALL LIGHT WITHIN REACH. WILL CONTINUE TO MONITOR
--- NOTE | 2020-01-19 14:18 | NUR ---
PHYSICAL THERAPY DAILY NOTES CO-SIGN All documentation done by the Ring Striker for 01/19/20 has been reviewed. I agree with the documentation. Reviewed/Co-Signed by: Jayme Beltran PT Documentation Done by: ALLEGRA GARG, ROTOR PLATE WASHER
[2020-01-19 16:45] VITALS: BP 152/81
--- NOTE | 2020-01-19 17:34 | NUR ---
Pt SITTING UP IN BED EATING LUNCH TOLERATING DIET WELL. PT REPORST POOR APPETITE AND FEELING VERY LETHARGIC. ALL NEEDS ATTENDED TO AT THIS TIME. BED IN LOWEST POSITION CALL LIGHT WITHIN REACH. WILL CONTINUE TO MONITOR.
--- NOTE | 2020-01-19 18:38 | NUR ---
Pt SITTING UP IN BED WITH EYES CLOSED ON TELE 11 DENIES ANY CHEST PAIN OR PRESSURE. ON RA TOLERATING WELL DENIES ANY SOB. SKY DRAINING TO GRAVITY 500 OUT YELLOW URINE WITH WHITE SEDIMENT. WOUND VAC ON RIGHT BUTTOCK INTACT. IV ON LEFT HAND PATENT AND INTACT INFUSING WELL. ALL NEEDS ATTENDED TO. SAFETY PRECAUTIONS IN PLACE WILL ENDORSE CARE TO NIGHT RN
--- NOTE | 2020-01-19 19:57 | NUR ---
Awake and verbally responsive. No respiratory distress noted on room air. Denies pain. Denies n/v. Right buttock wound with wound vac intact @ 125mmHg. Good seal. Will cont.to monitor. Call light within reach.
[2020-01-19 20:35] VITALS: BP 142/79
--- NOTE | 2020-01-20 04:19 | NUR ---
Afebrile. No significant change in condition noted. Wound vac intact with good seal. Cont.on IV zosyn. In no apparent distress.
[2020-01-20 05:35] VITALS: BP 154/85
[2020-01-20 06:44] LABS: BASOPHIL % 0.5 % (0-2); RED CELL DISTRIBUTION WIDTH 13.7 % (11.5-14.5)
[2020-01-20 06:45] LABS: PLATELET COUNT 421 x10^3mcL (130-400)
[2020-01-20 07:09] LABS: CALCIUM 7.8 mg/dL (8.5-10.1); CARBON DIOXIDE 25.6 mmol/L (21-32); CREATININE SERUM 3.1 mg/dL (0.6-1.0); POTASSIUM SERUM 4.2 mmol/L (3.5-5.1)
--- NOTE | 2020-01-20 07:46 | NUR ---
RECEIVED PT FROM NIGHT RN. PT RESTING IN BED WITHOUT ACUTE DISTRESS. AAOX4. PRIMARILY TELUGU SPEAKING. RES E/U, DENIES SOB ON RA. TELE MONITOR 11 SHOWING SR, HR IN 70'S. DENIES CP/PRESSURE. IV SITE TO LHAND INFUSING 1/2 NS W BICARB AT 40 ML/HR W NO S/S OF INFILTRATION NOTED. SKY DRAINING TO GRAVITY WITH YELLOW URINE NOTED. WOUND VAC TO R BUTTOCK, WORKING PROPERLY. SCAB TO RLE NOTED, PRERNA. PT DENIES OF ANY PAIN/DISCOMFORT AT THIS TIME. SAFETY PRECAUTIONS IN PLACE. BED IN LOWEST POSITION, CALL LIGHT WITHIN REACH. WILL CONTINUE TO MONITOR
[2020-01-20 07:53] VITALS: BP 160/92
--- NOTE | 2020-01-20 10:45 | NUR ---
PER MADDIE JAIN KEEP THE WOUND VAC.
--- NOTE | 2020-01-20 11:30 | NUR ---
AT 1030 - FINANCIAL OPERATIONS ANALYST AT BEDSIDE TO CHANGE WOUND VAC. AT 1115 - NOTICED THAT WOUND VAC CANNISTER HAS NOT BEEN MARKED IN PREVIOUS SHIFTS. MARKED CANNISTER AT 120 ML.
--- NOTE | 2020-01-20 11:43 | NUR ---
WOUND CARE RE-EVALUATION NOTE: WOUND ASSESSMENT TO RIGHT GLUTEAL SURGICAL WOUND 6.5X5X0.8 CM WOUND BED SCATTER WITH 60% SOFT YELLOW SLOUGH TISSUE AND 40% GRANULATING TISSUE, NO ODOR,UNDERMINING 12-3 O'CLOCK 0.5 CM PINK IN COLOR,CANISTER ABOUT 120ML AMOUNT LIGHT BROWN DRAINAGE, WOUND VAC DRESSING APPLY . PT. TOLERATE PROCEDURES WELL, POC DISCUSSED WITH PT AND ALL QUESTION ANSWERED WITH ASSISTANCE OF CYBER INTELLIGENCE ANALYST TRANSLATE IN JAPANESE. RIGHT LOWER LEG SCAB REMAIN DRY AND FRANCHESCA-WOUND CLEAN AND INTACT POC DISCUSSED WITH PRIMARY RN.
--- NOTE | 2020-01-20 12:06 | NUR ---
PHYSICAL THERAPY DAILY NOTES CO-SIGN All documentation done by the Greenskeeper Laborer for 01/20/20 has been reviewed. I agree with the documentation. Reviewed/Co-Signed by: Jayme Beltran PT Documentation Done by: ALLEGRA GARG, POTTERY MACHINE OPERATOR
[2020-01-20 12:16] VITALS: BP 179/97
--- NOTE | 2020-01-20 12:28 | NUR ---
AT 1218 - BP 179/97, GIVEN LABETALOL IV PER EMAR. AT 1225 - 24HR URINE INITIATED.
--- NOTE | 2020-01-20 13:30 | NUR ---
CALLED DR CHAN INQUIRING IF SODIUM BICARB W 1/2NS CAN BE DC'D AND BE SL. PT'S K+ LEVEL IS 4.2, AND BICARB IS 25. ALSO, PT'S BP HAS BEEN HIGH AND HAS +1 EDEMA BLE/BUE. GAVE TELEPHONE/VERBAL ORDER TO DC IVF.
[2020-01-20 16:41] VITALS: BP 148/88
--- NOTE | 2020-01-20 18:47 | NUR ---
PT RESTING IN BED TALKING ON THE PHONE. NO ACUTE DISTRESS NOTED. NO SIGNIFICANT CHANGES NOTED. WILL ENDORSE CARE TO NEXT SHIFT
--- NOTE | 2020-01-20 19:30 | NUR ---
PT RECIEVED FROM DAY NURSE. PT RESTING IN BED AT THIS TIME. DENIES PAIN OR DISCOMFORT. PT A/O X4, CALM AND COOPERATIVE AT THIS TIME. PT MS, DENIES CP, NV, DIZZINESS, OR PALPATATIONS AT THIS TIME. PALPABLE PULSES, PITTING EDEMA NOTED TO BLE AND BUE. ELEVATED WITH PILLOWS. BREATHING E/U ON RA. DENIES SOB. ABD SOFT AND ROUND, DENIES PAIN TO PALPATION. SKY INTACT AND DRAINING YELLOW URINE. [address] IN [address]. GEN WEAKNESS, PT AMBULATORY AT BASELINE. UP WITH PT. WOUND NOTED TO R BUTTOCK WITH WOUND VAC DRAINING SEROSANGUNOUS FLUID. HEALED WOUND NOTED TO PRERNA FUENTES. IV TO LH, CDI. BED AT LOWEST POSITION. CALL LIGHT WITHIN REACH. WILL CONTINUE TO MONITOR.
[2020-01-20 20:45] VITALS: BP 142/78
--- NOTE | 2020-01-20 21:10 | NUR ---
PT COMPLAINING OF INSOMNIA, MEDICATED WITH PRN AMBIEN. WILL CONTINUE TO MONITOR.
--- NOTE | 2020-01-21 | NUR ---
PT RESTING IN BED AT THIS TIME. DENIES PAIN OR DISCOMFORT AT THIS TIME. BREATHING E/U ON RA. NO S/S OF ACUTE DISTRESS AT THIS TIME. WILL CONTINUE TO MONITOR.
[2020-01-21 05:24] VITALS: BP 155/81
--- NOTE | 2020-01-21 06:53 | NUR ---
PT RESTING IN BED AT THIS TIME. DENIES PAIN OR DISCOMFORT. PT BREATHING E/U ON RA. NO S/S OF ACUTE DISTRESS AT THIS TIME. WOUND VAC INTACT AND DRAINING SEROSANGUNOUS FLUID. NO S/S OF ACUTE DISTRESS NOTED. ALL NEEDS AND CONCERNS ADDRESSED WILL ENDORSE.
[2020-01-21 07:10] LABS: BASOPHIL % 0.4 % (0-2); RED CELL DISTRIBUTION WIDTH 13.9 % (11.5-14.5)
[2020-01-21 07:13] LABS: CALCIUM 7.9 mg/dL (8.5-10.1); CREATININE SERUM 3.1 mg/dL (0.6-1.0); MAGNESIUM 1.8 mg/dL (1.8-2.4); POTASSIUM SERUM 4.8 mmol/L (3.5-5.1)
[2020-01-21 07:16] LABS: PLATELET COUNT 504 x10^3mcL (130-400)
--- NOTE | 2020-01-21 07:30 | NUR ---
RECIEVED PT FROM PM NURSE. PT IN BED RESTING. PT AWAKE AND AWARE OF CHANGE OF SHIFT. PT DENIES PAIN AT THIS TIME. HAS NO OTHER CONCERNS. CALL LIGHT IN REACH, PT ENCOURAGED TO USE IF ASSISTANCE IS NEEDED. WILL FOLLOW UP WITH AM ASSESSMENT.
[2020-01-21 08:55] VITALS: BP 139/76
--- NOTE | 2020-01-21 11:04 | NUR ---
PHYSICAL THERAPY AT BEDSIDE ATTEMPTING TO WORK WITH PT. PT DECLINED PHYSCIAL THERAPY TODAY STATING SHE FEELS LIGHTHEADED AT THE MOMENT. COMFORT MEASURES WERE PROVIDED AND PT WAS ENCOURAGED TO CALL NURSE IF LIGHTHEADEDNESS CONTINUED. PT VERBALIZED UNDERSTANDING.
--- NOTE | 2020-01-21 11:04 | NUR ---
PHYSICAL THERAPY NOTE ATTEMPTED FOR SCHEDULED PHYSICAL THERAPY TX SESSION, PT STATES SHE IS UNABLE TO PARTICIPATE AT THIS TIME SECONDARY TO DIZZINESS/LIGHTHEADEDNESS AT PRESENT. ATTENDING RN, DEVAUGHN, MADE AWARE.
--- NOTE | 2020-01-21 12:33 | NUR ---
CALLED SPRAYING MACHINE OPERATOR ULICES TO ASK ABOUT GIVING THE 11 UNIT SCHEDULED DOSE OF REGULAR INSULIN, SINCE PTS SUGAR WAS 193 AND I GAVE 3 UNITS REGULAR PER SLIDING SCALE. PER SPRAYING MACHINE OPERATOR ULICES, HOLD SCHEDULED DOSE OF INSULIN.
[2020-01-21 12:38] VITALS: BP 147/85
--- NOTE | 2020-01-21 15:25 | NUR ---
CALLED DR MILLER TO CONFIRM THAT SURGICAL PROCEDURE IS STILL SCHEDULED FOR TOMORROW. PER DR MILLER, PROCEDURE IS STILL SCHEDULED AND IS SCHEDULED FOR NOON. CONSENT IS SIGNED AND IN PTS CHART. PT IS AWARE. PT ALSO AWARE NEEDS TO BE NPO AT MIDNIGHT TONIGHT. WILL ENDORSE TO PM NURSE.
--- NOTE | 2020-01-21 15:59 | NUR ---
PT IN BED RESTING. PT HAS NO PAIN OR DISCOMFORT AT THIS TIME. APPLIED BETADINE SOLUTION TO PTS SCAB ON RIGHT LOWER LEG. PT TOLERATED WELL. ENCOURAGED PT TO USE CALL LIGHT IF ASSISTANCE IS NEEDED.
[2020-01-21 16:33] VITALS: BP 132/73
--- NOTE | 2020-01-21 17:03 | NUR ---
PTS BLOOD SUGAR WAS 256 TALKED TO CHARGE NURSE SEBASTIAN. PER SEBASTIAN SHE SAID ITS OKAY TO GIVEN SCHEDULED 11UNITS DOSE OF REGULAR INSULIN. WILL MONITOR PT.
--- NOTE | 2020-01-21 18:02 | NUR ---
SPOKE TO UM NURSE KATELYN ABOUT PUTTING PT NPO PENDING SURGERY TOMORROW. PER UM NURSE KATELYN, OKAY TO ENTER ORDER.
[2020-01-21 18:20] LABS: CREATININE UR 16.2 mg/dL (0.60-1.80)
[2020-01-21 18:26] LABS: CREATININE SERUM 3.2 mg/dL (0.6-1.0)
--- NOTE | 2020-01-21 19:05 | NUR ---
PT COMPLAINING OF LIGHTHEADEDNESS AND PRESSURE ON CHEST WITH FEELING LIKE SHE CANT CATCH HER BREATH. CALLED WEB APPLICATIONS PROGRAMMER KATELYN. PTS BLOOD PRESSURE IS GOOD 135/74. PT ALSO STATING SHE HAS NOT BEEN ABLE TO SLEEP BUT DID NOT WANT AMBIEN. PER WEB APPLICATIONS PROGRAMMER KATELYN, ORDER ATIVAN 1MG Q4 PRN FOR ANXIETY. ORDER ENTERED WILL ENDORSE TO PM NURSE. PT IN BED RESTING AWARE OF CHANGE OF SHIFT.
--- NOTE | 2020-01-21 19:20 | NUR ---
RECEIVED REPORT FROM DEVAUGHN SPARROW. PT AAOX4 AND LUXEMBOURGISH SPEAKING ONLY. PT DENIES WEST/DIZZINESS. PT MED-SURG AND DENIES CP/PRESSURE. PT PULSES PALPABLE AND CAP REFILL <3 SEC. PT HAS EDEMA NOTED TO BLE AND +1 EDEMA TO BUE. PT LUNG SOUNDS CTA ON RA WITH E/U BREATHING. PT DENIES SOB OR RESP DISTRESS. PT ABD SOFT/NONDISTENDED WITH ACTIVE BS X4. PT DENIES N/C/V/D. PT HAS SKY CATH IN PLACE DRAINING YELLOW URINE. PT HAS GENERALIZED WEAKNESS AND IS BEDBOUND AT THIS TIME. 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 PT DENIES S/S OF PAIN OR DISCOMFORT AT THIS TIME. PT IV TO LH PATENT, INTACT, SL. ALL NEEDS MET AT THIS TIME. CALL LIGHT WITHIN REACH. BED IN LOWEST POSITION. SIDE RAILS X2 UP. WILL CONTINUE TO MONITOR.
[2020-01-21 21:44] VITALS: BP 159/83
--- NOTE | 2020-01-22 01:13 | NUR ---
PT RESTING COMFORTABLY WITH EYES CLOSED, EASILY AROUSABLE. NO ACUTE DISTRESS NOTED. PT BREATHING E/U ON RA. PT DENIES SOB OR RESP DISTRESS. PER OCT, ADMINISTERED ZOYSN IVPB AT THIS TIME. ALL NEEDS MET. CALL LIGHT WITHIN REACH. BED IN LOWEST POSITION. SIDE RAILS X2 UP. WILL CONTINUE TO MONITOR.
--- NOTE | 2020-01-22 03:30 | NUR ---
PT RESTING COMFORTABLY IN BED, EASILY AROUSABLE. NO ACUTE DISTRESS. PT BREATHING E/U ON RA. PT DENIES SOB OR RESP DISTRESS. ALL NEEDS MET. CALL LIGHT WITHIN REACH. BED IN LOWEST POSITION. SIDE RAILS X2 UP. WILL CONTINUE TO MONITOR.
[2020-01-22 05:17] VITALS: BP 148/83
--- NOTE | 2020-01-22 06:51 | NUR ---
PT RESTED COMFORTABLY WITH EYES CLOSED DURING THE NIGHT, EASILY AROUSABLE. NO ACUTE DISTRESS NOTED DURING THE NIGHT. PT COMPLIED WITH NURSING CARE DURING THE SHIFT. PT DENIES SOB OR RESP DISTRESS DURING THE NIGHT. COMFORT AND SAFETY MEASURES MAINTAINED. ALL QUESTIONS AND CONCERNS ANSWERED. CALL LIGHT WITHIN REACH. BED IN LOWEST POSITION. SIDE RAILS X2 UP. WILL ENDORSE CARE TO DAY SHIFT NURSE.
[2020-01-22 07:01] LABS: CALCIUM 8.3 mg/dL (8.5-10.1); CARBON DIOXIDE 28.3 mmol/L (21-32); CREATININE SERUM 3.2 mg/dL (0.6-1.0); POTASSIUM SERUM 4.8 mmol/L (3.5-5.1)
--- NOTE | 2020-01-22 07:26 | NUR ---
ENDORSED CARE TO KADI SPARROW AND FREDIS SPARROW. ALL QUESTIONS AND CONCERNS ANSWERED.
[2020-01-22 08:06] VITALS: BP 184/84
--- NOTE | 2020-01-22 08:30 | NUR ---
RECEIVED PT FROM PM NURSE. PT IS RESTING IN BED COMFORTABLY. NO SOB OR FACIAL DISTRESS NOTED. PT IS A/O X4. KOSOVAN SPEAKING ONLY. LUNG SOUNDS CTA ON RA. CHEST RISES AND FALLS EVENLY. MED SURG. DENIES C/P OR DIZZINESS. PULSES PALPABLE AND EVEN. EDEMA NOTED TO BLE AND +1 EDEMA TO BUE. BOWEL SOUNDS NORMACTIVE X4 ABD SOFT AND NON DISTENDED. DENIES N/V/D. SYK CATH DRAINING YELOW URINE. PT HAS OPEN WOUND TO RIGHT BUTTOCK WITH WOUND VAC DRAINING SEROSANGUINEOUS DRAINAGE. OLD WOUND NOTED ON RLE. PRERNA. PT IS SEEN WITH GENERALIZED WEAKNESS. C/O 3/10 PAIN. MEDICATED WITH TYNENOL PRN. IV ON LH. SL. INTACT AND PATENT. NO SIGNS OF INFILTRATION. BED AT THE LOWEST POSITION. INSTRUCTED PT TO USE THE PROPER USE OF CALL LIGHT. WILL CONTINUE TO MONITOR.
[2020-01-22 09:22] LABS: BASOPHIL % 0.3 % (0-2); RED CELL DISTRIBUTION WIDTH 14.2 % (11.5-14.5)
[2020-01-22 09:25] LABS: PLATELET COUNT 577 x10^3mcL (130-400)
--- NOTE | 2020-01-22 11:33 | NUR ---
DR MILLER CALLED TO CONFIRM PT'S IMPENDING CYSTOCOPY. PT'S VITALS ARE WNL. CHG PREPPED. CONSENTS AND ALL PAPERWORK VERIFIED AND ARE IN PT'S CHART.
[2020-01-22 12:04] VITALS: BP 150/83
--- NOTE | 2020-01-22 12:20 | NUR ---
REPORT GIVEN TO OR NURSE. CARE ENDORSED. PT LEFT IN STABLE CONDITION TO OR @ 1200.
--- NOTE | 2020-01-22 14:51 | NUR ---
REPORT RECEIVED FROM OR NURSE. PT CAME BACK FROM SURGERY @ 1440 IN STABLE CONDITION. NO SOB OR FACIAL DISTRESS NOTED. WOUND VAC IN PLACE. F/C DRAINING YELLOW URINE. BED IN LOWEST POSITION. CALL LIGHT WITHIN REACH. WILL CONTINUE TO MONITOR.
[2020-01-22 16:28] VITALS: BP 155/80
--- NOTE | 2020-01-22 17:19 | NUR ---
SPOKE WITH KATELYN PSYCHIC READER REGARDING SCHEDULED REGULAR INSULIN 11 UNITS, ASKED KATELYN PSYCHIC READER IF SHE WOULD PREFER GIVING SCHEDULED 11 UNITS OR SLIDING SCALE. PER KATELYN PSYCHIC READER D/C SCHEDULED 11 UNITS OF REGULAR INSULIN AND COVER BLOOD SUGAR WITH SLIDING SCALE.
--- NOTE | 2020-01-22 19:30 | NUR ---
RECEIVED PT REPORT FROM DAY SHIFT RN. PATIENT IS AAOX4, DENIES WEST/DIZZINESS. BREATHING EVEN AND UNLABORED ON RA WITH NO SOB NOTED. MED SURG PATIENT DENIES CHEST PAIN/PRESSURE. PATIENT HAS BLE EDEMA, PALPABLE PULSES. ABD SOFT/ROUND, ACTIVE BOWEL SOUNDS. F/C IN PLACE, DRAINING VIA GRAVITY WITH YELLOW COLOR URINE OUTPUT. PATIENT HAS A WOUND VA ON BUTTOCKS, NO LEAKS NOTED. 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 IV LH PATENT, SL. NO ACUTE DISTRESS NOTED. CALL BUTTON WITHIN REACH. SAFETY PRECAUTIONS IN PLACE. WILL MONITOR.
[2020-01-22 20:09] VITALS: BP 135/74
--- NOTE | 2020-01-23 00:58 | NUR ---
PATIENT RESTING, BREATHING EVEN AND UNLABORED ON RA WITH NO SOB NOTED. NO ACUTE DISTRESS NOTED. CALL BUTTON WITHIN REACH. SAFETY PRECAUTIONS IN PLACE. WILL MONITOR.
--- NOTE | 2020-01-23 05:26 | NUR ---
PATIENT SLEPT MOST OF THE NIGHT WITH NO ACUTE DISTRESS NOTED. PATIENT BREATHING EVEN AND UNLABORED ON RA WITH NO SOB NOTED. PATIENT DENIES ANY CHEST PAIN. DENIES ANY PAIN. WOUND VAC IN PLACE, NO LEAKAGE NOTED, MINIMAL DRAINAGE. IV PATENT, SL. PATIENT MEDICATED PER EMAR. F/C IN PLACE, DRAINING VIA GRAVITY WUTH YELLOW URINE OUTPUT. ALL NEEDS MET. CALL BUTTON WITHIN REACH. SAFETY PRECAUTIONS IN PLACE. WILL MONITOR.
[2020-01-23 05:40] VITALS: BP 137/71
[2020-01-23 06:55] LABS: BASOPHIL % 0.5 % (0-2); RED CELL DISTRIBUTION WIDTH 14.3 % (11.5-14.5)
--- NOTE | 2020-01-23 07:03 | NUR ---
PATIENT IN NO ACUTE DISTRESS. ENDORSED CARE TO DAY SHIFT RN, ALL QUESTIONS ADDRESSED.
[2020-01-23 07:28] LABS: CALCIUM 8.1 mg/dL (8.5-10.1); CREATININE SERUM 3.1 mg/dL (0.6-1.0); POTASSIUM SERUM 4.8 mmol/L (3.5-5.1)
--- NOTE | 2020-01-23 07:58 | NUR ---
RECEIVED PT FROM PM NURSE. PATIENTIS A/OX4. BRITISH SPEAKING. VERBALLY RESPONSIVE. NO SOB OR FACIAL DISTRESS NOTED. LUNG SOUNDS CTA. BREATHING E/U ON RA. MED SURG PATIENT. DENIES C/P/DIZZINESS. PULSES EVEN AND PALPABLE. EDEMA NOTED ON BUE AND BLE. BS ACTIVE X4. ABD SOFT AND ROUND. DENIES N/V/D. FC IN PLACE DRAINING YELLOW URINE VIA GRAVITY. GENERALIZED WEAKNESS NOTED. BEDREST AT THIS TIME. WOUND ON RIGHT BUTTOCK. WOUND VAC IN PLACE. NO LEAKS NOTED. MUTTIPLE SMALL WOUND AND SCABS ARE PRESENT TO RLE. PRERNA. IV ON LH. PATENT AND INTACT. NO SIGNS OF INFILTRATION. BED IN THE LOWEST POSITION. CALL LIGHT WITHIN REACH. WILL CONTINUE TO MONITOR.
[2020-01-23 07:59] VITALS: BP 157/80
[2020-01-23 08:18] LABS: PLATELET COUNT 467 x10^3mcL (130-400)
--- NOTE | 2020-01-23 10:15 | NUR ---
Intervention: 1. Recommend continue Mechanical soft CCHO 60, cardiac diet 2. Recommend continue Marty BID for wound healing; Nursing and RD to encourage intake.
--- NOTE | 2020-01-23 10:15 | NUR ---
Dx: Sepsis hyperkalemia, Renal failure PMHx: DM, GERD, HTN, Dyslipidemia Labs: (01/22) Na 138, K 4.8, Glu 211 H, BUN 56 H, Cr 3.1 H, H/H 8.2/25 Meds: apresoline, Ativan, Colace, D50%/water, dilaudid, Humulin R, hydralazine, lactulose, lantus, Lipitor, Lopressor, miralax, Norvasc, Tylenol, vancomycin, Zofran, zosyn Diet: CCHO 60, Cardiac, Mechanical soft-chopped PO Intake: (01/20) B: 100%, (01/19) B: 85%, L: 80%, (01/18) L: 100%, (01/17) B: 100%, L: 100%, D: 100%. Overall average of 95% x 7 meals. This provides 1345 kcal and 54 gm protein, which meets 75% estimated kcal needs and 60% estimated protein needs; kcal adequate, protein inadequate. Per previous RDN Note (01/17), Pt was not taking Marty. Weights: (01/17) 60kg/132lbs (01/12) bedscale: 65kg/145lbs Edema: BLE edema Last BM: 01/22 x 1 Skin: wound vac to buttocks, no leakage noted. Mult small wounds/scabs to lower extremities TECHNOLOGY AUDITOR Michael: [address] Note (01/17): Per pt's primary RN, pt had fair appetite, and RN reported that pt did not complain about chewing/swallowing difficulty. Additionally, RN mentioned that pt did not take Marty, and RN was willing to mix them with water and encourage pt to drink them. With 90% average PO intake, pt's diet provided 1555kcal and 83g protein, meeting > 75% estimated kcal and protein needs. RDN Note (01/22): Pt seen awake, alert. Pt did not appear to be in any apparent distress or discomfort. Pt appears adequately nourished. No GI distress per nursing. RDN unable to provided DM education at this time; RDN to consider providing Pt with Angolan DM diet education upon f/u. Estimated Nutritional Needs Based on current body weight (60kg) Energy: 4295-4764 kcal/day (30-35 kcal/kg for sepsis and wound healing) Protein: 90-120 g/day (1.5-2 g/kg for sepsis and wound healing) Fluid: 1162-5786 mL/day (20-25 mL/kcal for 2+ nonpitting edema) or per MD Nutrition Diagnosis: (ongoing) 1. Increased energy and protein needs r/t hypermetabolic state and skin integrity a/e/b pt has sepsis and pressure ulcer to buttocks. (resolved; Pt receiving mechanical soft-chopped diet textures) 2. Masticatory difficulty r/t loose teeth a/e/b pt reported having 3 loose teeth and prefers mechanical soft diet and soup. (modified) 3. Impaired nutrition utilization r/t endocrine dysfunction a/e/b pt elevated glucose 224H on 01/23/20, and PMHx of DM. Intervention: 1. Recommend continue Mechanical soft CCHO 60, cardiac diet 2. Recommend continue Marty BID for wound healing; Nursing and RD to encourage intake. Monitor/Evaluate: Goal: Have pt meet at least 75% of estimated needs (met, ongoing goal) Monitor: PO intake, ONS intake, Labs, GI function, Skin integrity F/U 3-5 days as moderate risk 01/25-
[2020-01-23 11:26] VITALS: BP 169/86
--- NOTE | 2020-01-23 15:02 | NUR ---
WOUND VAC CHANGED BY ANDREWS METZGER PER EMAR. BETADINE APPLIED TO WOUND ON RLE. PRICING STRATEGIST. PT TOLERATED BOTH PROCEDURES WELL. ALL NEEDS ARE MET AT THIS TIME. NO DISTRESS NOTED. WILL CONTINUE TO MONITOR.
--- NOTE | 2020-01-23 15:02 | NUR ---
PT SITTING UP IN BED. WOUND VAC DRESSING CHANGE DONE. PT OFFERED TO BE PREMEDICATED WITH PAIN MEDICATION, PT DID NOT WANT PAIN MEDICATION. WOUND BED CLEANSED WITH WOUND CARE CLEANSER, PAT DRY. WOUND BED PINK WITH WHITE GRANULATION. MEASURED WOUND BED 7.8 X 5 X 1, WOUND NOTED TO HAVE UNDERMINING WITH DEEPEST POINT BEING 1.8 CM, PHOTO TAKEN. APPLIED WOUND VAC PER PROTOCOL. PT TOLERATED WELL. PT ASKING FOR MEDICATION TO HELP WITH ITCHING, WILL ASK KATELYN BALL MILL OPERATOR. WOUND TO LLE PAINTED WITH BETADINE, REPAIRER KILN CAR. WILL CONTINUE TO MONITOR. CALL LIGHT IN REACH. BED IN LOWEST POSITION.
[2020-01-23 16:53] VITALS: BP 150/82
--- NOTE | 2020-01-23 18:53 | NUR ---
PT AWAKE AND RESTING COMFORTABLY THROUGHOUT SHIFT. ALL NEEDS ARE MET AT THIS TIME. CALL LIGHT WITHIN REACH. WILL ENDORSE CARE TO THE PM NURSE.
--- NOTE | 2020-01-23 19:10 | NUR ---
RECEIVED REPORT FROM FREDIS SPARROW AND KADI SPARROW. PT AAOX4 AND NEPALI SPEAKING ONLY. PER PT, SHE HAS POOR VISION. PT DENIES WEST/DIZZINESS. PT IS MED-SURG AND DENIES CP/PRESSURE. PT LUNG SOUNDS CTA ON RA WITH E/U BREATHING. PT DENIES SOB OR RESP DISTRESS. PT ABD SOFT/ROUND WITH ACTIVE BS X4. PT DENIES N/V/C/D. PT HAS SKY CATH IN PLACE DRAINING YELLOW URINE BY GRAVITY. PT HAS WOUND TO RIGHT BUTTOCKS WITH WOUND VAC THAT WAS PLACED ON 01/14/20 AND CHANGED 01/23/20. PT HAS WOUND TO RLE, PRERNA WITH BETADINE. PT DENIES ANY S/S OF PAIN OR DISCOMFORT AT THIS TIME. IV TO LH PATENT, INTACT, SL. ALL NEEDS MET. CALL LIGHT WITHIN REACH. BED IN LOWEST POSITION. SIDE RAILS X2 UP. WILL CONTINUE TO MONITOR.
[2020-01-23 20:35] VITALS: BP 134/93
--- NOTE | 2020-01-24 00:24 | NUR ---
PT RESTING COMFORTABLY WITH EYES CLOSED, EASILY AROUSABLE. PT BREATHING E/U ON 2L NC. NO ACUTE DISTRESS NOTED. ALL NEEDS MET. CALL LIGHT WITHIN REACH. BED IN LOWEST POSITION. SIDE RAILS X2 UP. WILL CONTINUE TO MONITOR.
--- NOTE | 2020-01-24 02:23 | NUR ---
PT RESTING COMFORTABLY WITH EYES CLOSED, EASILY AROUSABLE. NO ACUTE DISTRESS NOTED. PT BREATHING E/U ON 2L NC. WILL CONTINUE TO MONITOR.
--- NOTE | 2020-01-24 04:18 | NUR ---
PT RESTING COMFORTABLY WITH EYES CLOSED, EASILY AROUSABLE. NO ACUTE DISTRESS NOTED. PT BREATHING E/U ON 2L NC. WILL CONTINUE TO MONITOR.
[2020-01-24 05:53] VITALS: BP 155/84
--- NOTE | 2020-01-24 06:32 | NUR ---
PT RESTED COMFORTABLY WITH EYES CLOSED DURING THE NIGHT, EASILY AROUSABLE. NO ACUTE DISTRESS NOTED. ALL NEEDS MET. ALL QUESTIONS AND CONCERNS ADDRESSED. COMFORT AND SAFETY MEASURES MAINTAINED. PT COMPLIED WITH NURSING CARE DURING THE NIGHT. WILL ENDORSE TO DAY SHIFT NURSE.
--- NOTE | 2020-01-24 07:15 | NUR ---
AAO X4.DENIES ANY PAIN/DISCOMFORT.LUNGS CLEAR.PT NONE TELE.IV SALINE LOCKED.BUE AND BLE WITH +1 EDEMA.SKY DRAINIG TO GRAVITY,YELLOW IN COLOR.R BUTTOCK WITH WOUND VAC.CALL LIGHT WITHIN REACH.INSTRUCTED TO CALL FOR ANY PAIN/DISCOMFORT.WILL CONTINUE TO MONITOR PT.
[2020-01-24 07:22] LABS: CARBON DIOXIDE 25.7 mmol/L (21-32); CREATININE SERUM 3.2 mg/dL (0.6-1.0); POTASSIUM SERUM 4.7 mmol/L (3.5-5.1)
--- NOTE | 2020-01-24 07:27 | NUR ---
ENDORSED CARE TO WERO SPARROW. ALL QUESTIONS AND CONCERNS ANSWERED.
[2020-01-24 07:44] LABS: BASOPHIL % 0.4 % (0-2); PLATELET COUNT 395 x10^3mcL (130-400); RED CELL DISTRIBUTION WIDTH 14.2 % (11.5-14.5)
[2020-01-24 08:19] VITALS: BP 140/74
[2020-01-24 13:41] VITALS: BP 138/73
--- NOTE | 2020-01-24 15:00 | NUR ---
PT HAD A BM CHANGED AND MADE HER COMFORTABLE.
--- NOTE | 2020-01-24 16:22 | NUR ---
PHYSICAL THERAPY NOTE PATIENT IS MAKING SLOW STEADY IMPROVEMENTS WITH SKILLED TREATMENT IN INCREASE MS STRENGTH AND STANDING BALANCE. PATIENT HAS DECREASE OVERALL SAFETY AWARENESS AND NEEDS CUES FOR PROPER HAND PLACEMENT AND MECH/ SEQ FOR FALL PREVENTION. PATIENT ALSO FATIGUES EASILY AND NEEDS CUES FOR PACING AND ENERGY . PATIENT CONTINUES TO HAVE GOOD REHAB POTIENTAL PATIENT IS MOTIVATED AND COMPLIANT WITH TREATMENT AND HAS HAD A HIGHER PLOF. PATIENT MAY BENEFIT FROM CONTINUED SERVICES TO INCREASE OVERALL FUNCTIONAL MOBILITY SPONTANEOUS RECOVERY IS UNLIKELY. WILL RECOMMEND PT 1X/DAY X 5 DAYS.
[2020-01-24 17:16] VITALS: BP 141/72
--- NOTE | 2020-01-24 18:41 | NUR ---
NO SIGNIFICANT CHANGE NOTED.WILL ENDORSE TO NEXT SHIFT.
--- NOTE | 2020-01-24 19:30 | NUR ---
RECEIVED PT IN BED AWAKE, ALERT,ORIENTED X4. NO SOB ON ROOM AIR. WOUND TO RT BUTTOCK W/ WOUND VAC IN PLACE W/ VERY MINIMAL DRAINAGE. SHE HAS NO C/O PAIN. W/ HL TO LT HAND. CALL LIGHT W/IN REACH.
--- NOTE | 2020-01-24 22:00 | NUR ---
INFORMED DR. LANGSTON THAT LANTUS WAS NOT GIVEN FOR BS OF Q57. ONLY REG INSULIN 4 UNITS WAS GIVEN.
[2020-01-24 22:03] VITALS: BP 143/75
[2020-01-25] VITALS (7 sets, daily range): BP systolic 138–176; BP diastolic 67–84
--- NOTE | 2020-01-25 01:30 | NUR ---
PT ASLEEP AND EASILY AROUSABLE. SHE DENIED PAIN OR DISCOMFORT WHEN ASKED.
--- NOTE | 2020-01-25 01:30 | NUR ---
PT ASLEEP BUT EASILY AROUSABLE. SHE HAS NO C/O PAIN OR DISCOMFORT AT THIS TIME.
--- NOTE | 2020-01-25 05:05 | NUR ---
PT SLEPT IN LONG INTERVALS. NO ACUTE CHANGES NOTED. SHE HAD NO C/O PAIN. WOUND VAC TO RT BUTTOCK WOUND REMAINS IN PLACE. SKY CATH INTACT AND PATENT. NO BM NOTED. ALL NEEDS ATTENDED TO.
--- NOTE | 2020-01-25 06:00 | NUR ---
PT C/O HEADACHE 03/20. TYLENOL 650 MG PO GIVEN.
--- NOTE | 2020-01-25 06:05 | NUR ---
SKY CATH CARE DONE PER PROTOCOL.
[2020-01-25 07:00] LABS: BASOPHIL % 0.4 % (0-2)
[2020-01-25 07:14] LABS: CALCIUM 8.3 mg/dL (8.5-10.1); CARBON DIOXIDE 26.4 mmol/L (21-32); CREATININE SERUM 3.2 mg/dL (0.6-1.0); POTASSIUM SERUM 5.1 mmol/L (3.5-5.1)
[2020-01-25 07:19] LABS: IRON 38 ug/dL (50-170); TOTAL IRON BINDING CAPACITY 249 ug/dL (250-450)
--- NOTE | 2020-01-25 07:20 | NUR ---
AAO X4.DENIES ANY PAIN/DISCOMFORT.LUNGS CLEAR.NON-TELE.IV SALINE LOCKED.R BUTTOCK WITH WOUND VAC DRAININF SEROUSANGUINOUS FLUID.CALL LIGHT WITHIN REACH.INSTRUCTED TO CALL FOR ANY PAIN/DISCOMFORT.WILL CONTINUE TO MONITOR PT.
[2020-01-25 07:59] LABS: PLATELET COUNT 411 x10^3mcL (130-400); RED CELL DISTRIBUTION WIDTH 14.8 % (11.5-14.5)
--- NOTE | 2020-01-25 10:00 | NUR ---
PT WALK WITH PHYSICAL THERAPY ON THE HALLWAYS TOLERATED IT WELL.
--- NOTE | 2020-01-25 17:00 | NUR ---
GAVE PT APRESOLINE 10 MG PO FOR BP ON THE 170'S WILL RECHECK AFTER AN HOUR.
--- NOTE | 2020-01-25 18:46 | NUR ---
RECHECKED BP AFTER GIVING HER APRESOLINE DA=701/69
--- NOTE | 2020-01-25 19:25 | NUR ---
RECEIVED PT IN BED RESTING QUIETLY. SHE IS ALERT,ORIENTED AX4. NO SOB NOTED. ON O2 AT 2L N/C. WOUND TO RT BUTTOCK W/ WOUND VAC IN PLACE. SMALL AMOUNT OF DRAINAGE NOTED IN CONTAINER ( SAME AMOUNT THE OTHER NIGHT). PT HAS NO C/O PAIN AT THIS TIME. SKY CATH IN PLACE. W/ IV ABX INFUSING VIA LT HAND. CALL LIGHT W/IN REACH.
--- NOTE | 2020-01-25 20:30 | NUR ---
SKY CATH DISCONTINUED ORDERED. 200 CC URINE IN BAG NOTED.
--- NOTE | 2020-01-25 22:00 | NUR ---
PT HAD A SAMLL SOFT BM. CLEANED PT AND KEPT WARM AND COMFORTABLE. VACCUM TO WOUND NOTED WITH LEAK ( WOUND CARE NURSE TO CHANGE TOMORROW).
--- NOTE | 2020-01-26 01:57 | NUR ---
PT C/O HEADACHE 03/20. TYLENOL 650 MG PO GIVEN.
--- NOTE | 2020-01-26 02:30 | NUR ---
OFFERED PT BEDPAN SO SHE CAN TRY TO URINATE. PT TRIED BUT WAS UNABLE TO. PT HAD BM INSTEAD. PT STATED SHE DOES NOT FEEL FULL AND DOES NOT FEEL LIKE URINATING. BLADDER SCAN DONE AND SCANNED 484 ML.
[2020-01-26 05:33] VITALS: BP 160/73
--- NOTE | 2020-01-26 06:00 | NUR ---
BLADDER SCAN DONE AND SCANNED 497 ML. PT STILL DOES NOT FEEL LIKE URINATING. STRAIGHT CATH DONE AND OBTAINED 450 CC CLEAR YELLOW URINE.
[2020-01-26 07:31] LABS: CALCIUM 7.5 mg/dL (8.5-10.1); CARBON DIOXIDE 24.3 mmol/L (21-32); CREATININE SERUM 3.3 mg/dL (0.6-1.0); POTASSIUM SERUM 4.5 mmol/L (3.5-5.1)
--- NOTE | 2020-01-26 07:58 | NUR ---
RECIEVED REPORT FROM NOC NURSE. PATIENT CURRENTLY AWAKE ALERT AND ORIENTED X 4. NO REPORT OF PAIN AT THIS TIME. IV SITE TO THE LEFT HAND CURRENTLY SALINE LOCKED. PATIENT CURRENTLY ON 2 LITER NASAL CANNULA SATURATING AT 98%. PATIENT CURRENTLY TURNED TO LEFT SIDE. WOUND CARE NURSE ON BOARD TO PROVIDE WOUND CARE FOR PATIENT. NO REPORT OF SOB AT THIS TIME. SAFETY PRECAUTIONS IN PLACE. CALL LIGHT WITHIN REACH. WILL CONTINUE TO PROVIDE CARE FOR PATIENT.
[2020-01-26 08:04] LABS: BASOPHIL % 0.5 % (0-2); PLATELET COUNT 356 x10^3mcL (130-400)
[2020-01-26 08:06] LABS: RED CELL DISTRIBUTION WIDTH 15.2 % (11.5-14.5)
[2020-01-26 08:13] VITALS: BP 126/58
--- NOTE | 2020-01-26 09:20 | NUR ---
FOUND PT ON RA, SPO2:88%. PT PLACED ON 2L NC. SPO2:95%.. NO RESP DISTRES NOTED. WILL CONT.TO MONITOR
[2020-01-26 12:00] VITALS: BP 118/68
--- NOTE | 2020-01-26 12:48 | NUR ---
PHYSICAL THERAPY DAILY NOTES CO-SIGN All documentation done by the Tooth Cutter Pinion for 01/26/20 has been reviewed. I agree with the documentation. Reviewed/Co-Signed by: Jayme Beltran PT Documentation Done by: ALLEGRA GARG, MANAGER IN HOME
--- NOTE | 2020-01-26 15:05 | NUR ---
PERFORMED WOUND VAC DRESSING CHANGE WITH WOUND CARE NURSE DARNELL. PER WOUND CARE NURSE WOUND TO RIGHT BUTTOCKS APPEARS NON RESPONSIVE TO WOUND VAC AND IS NOT IMPROVING WILL REQUIRE SURGEON CONSULT FOR I AND D. PATIENT IS AWARE.
--- NOTE | 2020-01-26 15:41 | NUR ---
POC DISCUSSED WITH KATELYN TO CONTINUE WOUND VAC AND WILL REQUEST SURGEON CONSULT FOR DEBRIDEMENT. WOUND ASSESSMENT DONE TO RIGHT BUTTOCK SURGICAL WOUND 7.5X4X1.2 CM, UNDERMINING BETWEEN 12-3 O'CLOCK 1.1CM, WOUND BED 90% WHITE/YELLOW SLOUGH TISSUE, 10% PALE PINK TISSUE WITH SCATTERED SLOUGH. FRANCHESCA-WOUND SKIN CLEAN DRY AND INTACT. WOUND VAC DRESSING CHANGED AND PT. RESPONDING TO PROCEDURES WELL, NO C/O PAIN. POC DISCUSSED WITH PT AND REQUEST SURGEON CONSULT FOR DEBRIDEMENT WOUND IS NOT RESPONDING TO WOUND BED AREA, WITH NO ODOR, OBSERVED ABOUT 50ML CLEAR YELLOW DRAINAGE TO CANISTER. ALL ABOVE INFORMATION TRANSLATE IN ESTONIAN WITH WEAVER TIRE CORD , PT. VERBALIZES UNDERSTANDING.
[2020-01-26 16:02] VITALS: BP 158/77
--- NOTE | 2020-01-26 17:07 | NUR ---
NEW SKY CATH INTIATED PER PHYSICIAN ORDER. 1000cc IMMEADITE URINARY OUTPUT FROM SKY. PER UROLOGIST DR. MILLER, PATIENT TO GO HOME WITH SKY.
--- NOTE | 2020-01-26 18:40 | NUR ---
PATIENT CURRENTLY AWAKE ALERT AND ORIENTED X 4. NEW SKY PLACED TODAY- 1600ML OUTPUT FROM SKY. PATIENT RECIEVED FERRLICIT DUE TO LOW HGB AND HCT LEVELS. PATIENT REMAINS ON 2 LITER NASAL CANNULA SATURATING AT 98%. SKY CURRENTLY IN PLACE DRAINING YELLOW URINE TO GRAVITY. FALL PROTOCOLS IN PLACE. CALL LIGHT WITHIN REACH. BED IN THE LOW POSITION. IV SITE TO LEFT HAND. WILL ENDORSE ALL FURTHER CARE TO THE NOC NURSE.
--- NOTE | 2020-01-26 19:39 | NUR ---
AWAKE AND ALERT, ORIENTED TO NAME, PLACE, TIME AND SITUATION. SPEECH CLEAR AND APPROPRIATE. BREATHING EVEN AND UNLABORED ON 2LPM OF O2 VIA NC. LUNG SOUNDS DIMINISHED. DENIES HAVING SHORTNESS OF BREATH. SKY CATH DRAINING YELLOW URINE. WAS INSERTED TODAY PER DAY SHIFT NURSE REPORT. WOUND VAC TO RIGHT BUTTOCK, DRESSING CDI. DRESSING TO RIGHT LOWER EXTREMITY CDI. CALL LIGHT WITHIN EASY REACH.
[2020-01-26 20:38] VITALS: BP 155/73
--- NOTE | 2020-01-26 22:45 | NUR ---
PT WANTS MEDICATION TO HELP HER SLEEP TONIGHT
--- NOTE | 2020-01-26 23:25 | NUR ---
EYES CLOSED, BREATHING EVEN AND UNLABORED ON 2LPM OF O2 VIA NC. CALL LIGHT WITHIN EASY REACH.
--- NOTE | 2020-01-27 06:10 | NUR ---
SLEPT THROUGH MOST OF SHIFT. AWAKE AND ALERT, BREATHING EVEN AND UNLABORED ON 2LPM OF O2 VIA NC. SALINE LOCK TO LEFT HAND FLUSHED WELL. CALL LIGHT WITHIN EASY REACH.
[2020-01-27 06:30] VITALS: BP 157/79
--- NOTE | 2020-01-27 07:10 | NUR ---
AWAKE AND ALERT, IN NO ACUTE DISTRESS. ENDORSED TO NURSE ENA
[2020-01-27 07:29] LABS: BASOPHIL % 0.4 % (0-2); PLATELET COUNT 265 x10^3mcL (130-400)
--- NOTE | 2020-01-27 07:30 | NUR ---
PT ENDORSE TO ME THIS MORNING, LAYING IN BED RESTING/ AA/O X4 MAURITANIAN SPKING/ BREATHING EVEN AND UNLABORED ON 2L NC SATING AT 100% DENIES ANY SOB. MS DENIES ANY CP OR PRESSURE. GEN WEAKNESS KNOWS TO CALL FOR ASSIST. WOUND VAC INPLACE TO RIGHT BUTTOCKS/ INTACT DRAINING. IV TO LEFT HAND INTACT AND PATENT/ NO REDNESS OR SWELLING NOTED. WILL CONTINUE TO MONITOR.
[2020-01-27 07:42] LABS: RED CELL DISTRIBUTION WIDTH 15.4 % (11.5-14.5)
[2020-01-27 07:45] VITALS: BP 161/84
[2020-01-27 08:06] LABS: CARBON DIOXIDE 22.8 mmol/L (21-32); CREATININE SERUM 3.3 mg/dL (0.6-1.0); MAGNESIUM 1.9 mg/dL (1.8-2.4); PHOSPHOROUS 4.8 mg/dL (2.5-4.9); POTASSIUM SERUM 4.7 mmol/L (3.5-5.1)
--- NOTE | 2020-01-27 10:12 | NUR ---
DR KWONG AT BEDSIDE PER HIS ORDERS NO NEED FOR REPEAT SURGERY/ CONTINUE WOUND VAC. ASSISSTED PT WITH CLEAN UP/ X1 BM FORMED. REFUSE LACTULOSE ACADEMIC INTERN MADE AWARE. PT IS NOW ON 1L NC SATING AT 98% DENIES ANY SOB OR CP/ WILL CONTINUE TO MONITOR.
--- NOTE | 2020-01-27 12:30 | NUR ---
DR SYED AT BEDSIDE PER HIS ORDERS ONCE PT IS DC CAN GO HOME WITH ASYA AND FOLLOW UP OUTPT IN HIS [place] OFFICE.
[2020-01-27 13:06] VITALS: BP 166/79
--- NOTE | 2020-01-27 13:25 | NUR ---
PHYSICAL THERAPY DAILY NOTES CO-SIGN All documentation done by the Head Packager for 01/27/20 has been reviewed. I agree with the documentation. Reviewed/Co-Signed by: Jayme Beltran PT Documentation Done by: ALLEGRA GARG, WEDDING DECORATOR
--- NOTE | 2020-01-27 15:06 | NUR ---
Call to SUSY Garner earlier waiting for call back. call to Dr. Petty, surgeon, POC discussed to surgical wound to right buttock. Dr. Petty agreeable with autolytic debridement David and discontune wound vac. He would like to continue arrangement to [facility] plastic surgery.TORB. REAGAN and primary RN notified.
--- NOTE | 2020-01-27 15:42 | NUR ---
PER DARNELL SPARROW AND DR. OLVERA ORDERS, WOUND VAC DC/ TOTAL OUTPUT 25ML OF CLEAR LIGHT DRAINAGE. CLEAN WOUND AND APPLIED THERAHONEY AND OPTIFORM/ TOLERATED WELL. MEDICATED PER EMAR FOR ABD DISCOMFORT. ALSO IVP HYDRALAZINE 1ML DUE TO BP OF 164/77 HR 75 TOLERATED WELL. PT IS NOW ON TELE 11 NSR HR 75. WILL CONTINUE TO MONITOR.
--- NOTE | 2020-01-27 15:45 | NUR ---
Follow-up Nutrition Assessment: 234B ROCHELLE FRIEDMAN 49F MR Dx: Sepsis hyperkalemia, Renal failure PMHx: DM, GERD, HTN, Dyslipidemia Labs: (01/26) BUN 53H, Cr 3.3H, H/H 8.4/26L Meds: Colace, Ferrlecit, Flomax, Lactulose, Lantus, Lipitor, Lopressor, Norvasc, Procrity, Vancomycin, Zosyn PRN meds: Ambien, Apresolin, Ativan, Benadryl, D50%, Humulin, Hydralazine, Miralax, Normodyne, Tylenol, Zofran Diet: CCHO Cardiac diet; FR 1500ml PO Intake: 50-100% x 7 meals with average PO intake of 85%. Weights: (01/26)60kg/132lbs; Bed scale: 79.2kg/174lbs (01/17) 60kg/132lbs (01/12) bedscale: 65kg/145lbs *wt change may d/t wound vac hanging off the bed Edema: Trace edema to BLE Last BM: 01/25 Skin: Wound vac to buttock Michael: 18 Per last RDN Note (01/22): Pt seen awake, alert. Pt did not appear to be in any apparent distress or discomfort. Pt appears adequately nourished. No GI distress per nursing. RDN unable to provided DM education at this time; RDN to consider providing Pt with Lithuanian DM diet education upon f/u. Pt had 95% x 7 meals meeting 75% of estimated kcal needs and 60% estimated protein needs. Inadequate protein. RD Note (01/26): Per Progress note (01/26), pt was not responding to wound vac and Dr. Petty recommended higher level of care. Pt had average PO intake of 85% since last visit, which provided approximately 1429kcal and 71g protein meeting 79% of estimated kcal needs and 79% of estimated protein needs. Pt was seen lying in bed with no s/s of distress. PROGRESSIVE CARE MANAGER helped with interpretation. Per pt, she had good appetite, and she took her Marty today. Pt reported not being able to take ensure yesterday d/t water being cold. Encouraged pt to take Marty for her wound healing. DM education was also given to pt. Encouraged pt to be mindful of high carbohydrate food or food with added sugar. RD recommended to use sample menu as a reference. Written education on T2DM nutrition therapy in Lithuanian was also provided. Pt acknowledged and accepted education. Estimated Nutritional Needs Based on current body weight (60kg) Energy: 5047-2238 kcal/day (30-35 kcal/kg for sepsis and wound healing) Protein: 90-120 g/day (1.5-2 g/kg for sepsis and wound healing) Fluid: FR 1500ml Nutrition Diagnosis: (ongoing) 1. Increased energy and protein needs r/t hypermetabolic state and skin integrity a/e/b pt has sepsis and pressure ulcer to buttocks. (resolved; Pt receiving mechanical soft-chopped diet textures) 2. Masticatory difficulty r/t loose teeth a/e/b pt reported having 3 loose teeth and prefers mechanical soft diet and soup. (ongoing, modified) 3. Impaired nutrition utilization r/t endocrine dysfunction a/e/b PMHx of DM.-BG WNL on 01/26 Intervention: 1. Recommend continue Mechanical soft CCHO 60, cardiac diet as tolerate 2. Recommend continue Marty BID for wound healing; Nursing and RD to encourage intake. 3. DM education provided Monitor/Evaluate: Goal: Have pt meet at least 75% of estimated needs (met, ongoing) Monitor: PO intake, Labs, GI function, Body weight, skin integrity F/U in 3-5 days as moderate risk 01/29-
[2020-01-27 17:54] VITALS: BP 135/70
--- NOTE | 2020-01-27 19:28 | NUR ---
NO ACUTE CHANGES AT THIS TIME, NO ACUTE RESP DISTRESS OR SOB NOTED. DENIES ANY CP OR PRESSURE/ BUTTUCKS PAIN. WILL ENDORSE TO INCOMING RN.
[2020-01-27 20:00] VITALS: BP 137/64
--- NOTE | 2020-01-28 05:10 | NUR ---
@ 0340 IV INFILTRATED & D/C. IV INSERTED ON HER RFA WITH ANGIO # 22 X1.
--- NOTE | 2020-01-28 05:12 | NUR ---
@ 0450 HAD BM.DRESSING CHANGED TO HER RIGHT LOWER BUTTOCK ORDERED. REPOSITIONED.
[2020-01-28 05:49] VITALS: BP 142/72
[2020-01-28 06:54] LABS: CALCIUM 7.5 mg/dL (8.5-10.1); CARBON DIOXIDE 21.5 mmol/L (21-32); CREATININE SERUM 3.5 mg/dL (0.6-1.0); POTASSIUM SERUM 4.4 mmol/L (3.5-5.1)
--- NOTE | 2020-01-28 06:57 | NUR ---
@ 0600 FINGER STICK BLD SUGAR 68.HAD APPLE JUICE & ARLENE CRACKERS.
--- NOTE | 2020-01-28 06:58 | NUR ---
ENDORSED IN NO ACUTE DISTRESS.NO S/S OF HYPO/HYPERGLYCEMIA NOTED. SAFETY MAINTAINED.
--- NOTE | 2020-01-28 07:05 | NUR ---
RECEIVED PT FROM NIGHT RN. PT RESTING IN BED WITH EYES CLOSED BUT EASILY AROUSABLE. AAOX4, DENIES WEST/DIZZINESS. PRIMARILY [place] SPEAKING. RES E/U, DENIES SOB ON 2 L/MIN NC. NO RESPIRATORY DISTRESS NOTED. TELEL MONITOR 11 SHOWING SR, DENIES CP/PRESSURE. TRACE EDEMA BLE/LUE. NO GI/ COMPLAINT. SKY DRAINING TO GRAVITY W YELLOW URINE NOTED. DRESSING TO R BUTTOCK NOTED, CDI AND PATENT. DRESSING TO RLE NOTED, CDI AND PATENT. IV SITE TO L HAND SL, W NO S/S OF INFILTRATION NOTED. BED IN LOWEST POSITION, CALL LIGHT WITHIN REACH. WILL CONTINUE TO MONITOR.
[2020-01-28 07:07] LABS: BASOPHIL % 0.7 % (0-2); RED CELL DISTRIBUTION WIDTH 16.2 % (11.5-14.5)
[2020-01-28 07:08] LABS: PLATELET COUNT 175 x10^3mcL (130-400)
[2020-01-28 08:56] VITALS: BP 134/70
--- NOTE | 2020-01-28 09:38 | NUR ---
TEMP 100.3 F GIVEN TYLENOL PO PER EMAR
--- NOTE | 2020-01-28 12:13 | NUR ---
PHYSICAL THERAPY DAILY NOTES CO-SIGN All documentation done by the Head Of Marketing Analytics for 01/28/20 has been reviewed. I agree with the documentation. Reviewed/Co-Signed by: Jayme Beltran PT Documentation Done by: ALLEGRA GARG, SOFTWARE PROJECT LEAD
[2020-01-28 13:01] VITALS: BP 155/74
[2020-01-28 16:43] VITALS: BP 138/70
--- NOTE | 2020-01-28 17:00 | NUR ---
REMOVED OLD GAUZE TO R WOUND BUTTOCK. CLEANSED WOUND WITH NS AND APPLIED THEROHONEY SHEET AND GAUZE COVERED BY OPTIFOAM WITH FOAM TAPE. ALSO, REMOVED OPTIFOAM TO RLE AND NOTED THAT DRY SCAB IS OPENED WOUND. WOUND CULTURE OBTAINED. CLEANSED WOUND WITH NS AND PAINTED WITH BETADINE, LEFT PRERNA ORDERED. PHOTO TAKEN AND PLACED IN CHART.
--- NOTE | 2020-01-28 19:25 | NUR ---
PT SITTING UP ON SIDE OF THE BED WITHUOT APPARENT DISTRESS. NO SIGNIFICANT CHANGES NOTED. WILL ENDORSE CARE TO NEXT SHIFT
--- NOTE | 2020-01-28 19:40 | NUR ---
RECEIVED PT FROM AM NURSE AT THIS TIME, AA/O X 4 ABLE TO MAKE NEEDS KNOWN, PRIMARILY VATICAN CITIZEN SPEAKING. CLEAR SPEECH, DENIES HEADACHE/ DIZZINESS. MED SURG PT, DENIES CHEST PRESSURE/ CHEST PAIN. PULSES PALPABLE. TRACE EDEMA TO BLE, BUE, RH. LUNG SOUNDS CTA, ON 1 LITER O2 VIA NC. NO SOB. ACTIVE BS X 4 QUADS, ABD SOFT AND ROUND, NON TENDER AND NON DISTENDED. FC IN PLACE DRAINING TO GRAVITY YELLOW URINE. OPTIFOAM TO R BUTTOCK WOUND, DRSG CDI. LLE SCAB, MACHINE BUNCH MAKER PER ORDER. IV SITE TO RH INTACT, SL WITH SLIGHT SWELLING. NO FLUIDS RUNNING AT THIS TIME. DENIES PAIN AT THIS TIME. FALL PRECAUTIONS IN PLACE. ALL NEEDS AND CONCERNS MET AT THIS TIME. CALL BUTTON WITHIN REACH, WILL CONTINUE TO MONITOR.
[2020-01-28 20:40] VITALS: BP 145/76
--- NOTE | 2020-01-29 00:10 | NUR ---
PT IN BED RESTING AT THIS TIME, BUT EASILY AROUSABLE. RESPIRATIONS E/U, NO SOB AT THIS TIME. DENIES PAIN AT THIS TIME. FC INTACT DRAINING TO GRAVITY. FALL PRECAUTIONS IN PLACE. NO ACUTE DISTRESS AT THIS TIME. CALL BUTTON WITHIN REACH, WILL CONTINUE TO MONITOR.
--- NOTE | 2020-01-29 02:00 | NUR ---
IV TO RH INFILTRATED, PT REPORTS PAIN. IV REMOVED, CATHETER INTACT. NEW IV INSERTED TO L HAND, 22 G.
[2020-01-29 05:27] VITALS: BP 157/80
--- NOTE | 2020-01-29 05:30 | NUR ---
PT DIAPHORETIC AND DROWSY, VS WNL BUT BLOOD SUGAR 35, RE-ASSESSED AND BLOOD SUGAR 37. D50 50 ML IV PUSH GIVEN PER ORDER, APPLE JUICE X 2 GIVEN. BLOOD SUGAR RE-ASSESSED AFTER INTERVENTIONS AND IS 151. PT STATED SHE IS HUNGRY, HAM SANDWICH GIVEN. MD DR. LANGSTON MADE AWARE AND PER DR. LANGSTON FOR 0630 BLOOD SUGAR CHECK HOLD INSULIN. WILL CONTINUE TO MONITOR CLOSELY.
[2020-01-29 06:52] LABS: CALCIUM 7.6 mg/dL (8.5-10.1); CARBON DIOXIDE 21.9 mmol/L (21-32); CREATININE SERUM 3.6 mg/dL (0.6-1.0); POTASSIUM SERUM 4.1 mmol/L (3.5-5.1)
--- NOTE | 2020-01-29 07:05 | NUR ---
BLOOD SUGAR REASSESSED AT 0650, 118. NO UNITS OF INSULIN GIVEN. PT SLEPT IN INTERVALS THROUGHOUT SHIFT. RESPIRATIONS EVEN AND UNLABORED. DENIES PAIN AT THIS TIME. CALL BUTTON WITHIN REACH, WILL ENDORSE CARE AND INFORM NURSE OF HYPOGLYCEMIC EPISODE TO AM NURSE.
--- NOTE | 2020-01-29 07:05 | NUR ---
RECEIVED PT FORM NIGHT RN. PT RESTING IN BED WITH EYES CLOSED . SEMI-LERMA'S POSITION. AAOX4, DENIES WEST/DIZZINESS. RES E/U, NO RESPIRATORY DISTRESS NOTED. DENIES SOB ON 1 L/MIN VIA NC. NON TELE, DENIES CP/PRESSURE. BLE/BUE EDEMA NOTED. ABDOMEN ROUND AND SOFT. SKY CATHETER DRAINING TO GRAVITY W YELLOW URINE NOTED. NO GI/ COMPLAINT. DRESSING TO R WOUND BUTTOCK CDI AND PATENT. RLE SCAB, CAFETERIA DIRECTOR. IV SITE TO SL, CDI AND PATENT. DENIES PAIN/DISCOMFORT AT THIS TIME. BED IN LOWEST POSITION, CALL LIGHT WITHIN REACH.
[2020-01-29 07:52] VITALS: BP 148/78
--- NOTE | 2020-01-29 08:30 | NUR ---
SPOKE WITH FUEL CELL TEST ENGINEERKATELYN INQUIRING TO DC LANTUS AND LACTULOSE. PT'S BLOOD SUGAR LEVEL HAS BEEN CONSISTENTLY LOW AND IT WAS IN THE 30'S DURING NIGHTSHIFT. ALSO, PT'S K LEVEL WNL CONSISTENLY AND SHE IS HAVING MULTIPLE LOOSE STOOLS. FUEL CELL TEST ENGINEER OKAY TO DC MEDS.
--- NOTE | 2020-01-29 11:30 | NUR ---
SKY CATHETER CLAMPED FOR BLADDER TRAINING. EDUCATED PT SKY WILL BE CLAMPED FOR 4 HOURS BEFORE REMOVING SKY AND TO NOTIFY RN IF SHE HAS AN URGE TO VOID.
--- NOTE | 2020-01-29 13:00 | NUR ---
Note added from 01/27/2020 1503 Call to SUSY Garner earlier waiting for call back. call to Dr. Petty, surgeon, POC discussed to surgical wound to right buttock. Dr. Petty agreeable with autolytic debridement Therahoney and discontune wound vac. He would like to continue arrangement to [facility] plastic surgery.TORB. REAGAN and primary RN notified. Addendum: 01/27/20 at 1556 by Theresa Phoenix RN ALL ABOVE INFORMATION DISCUSSED WITH BODYBUILDER, PER BODYBUILDER SHE CONTACTED WITH [facility] REQUEST PLASTIC SURGEON.
--- NOTE | 2020-01-29 13:00 | NUR ---
AT 0930 - PT HAD A BOWEL MOVEMENT. PT WAS CLEANED AND GOWN WAS CHANGED. DRESSING TO R BUTTOCK WAS SOILED. REMOVED DRESSING AND CLEANSED R BUTTOCK WITH NS, THERAHONEY WAS APPLIED AND COVERED WITH OPTIFOAM AND FOAM TAPE. AT 1300 - PT HAD A BOWEL MOVEMENT. PT WAS CLEANED AND BED LINENS WERE CHANGED. ENCOURAGED PT TO USE THE COMMODE AND USE CALL LIGHT WHEN NEEDING HELP.
--- NOTE | 2020-01-29 15:00 | NUR ---
SKY CATHETER DC'D ORDERED. OUTPUT 900ML YELLOW URINE.
--- NOTE | 2020-01-29 17:39 | NUR ---
C/O WEST, GIVEN TYLENOL PER EMAR
--- NOTE | 2020-01-29 18:49 | NUR ---
PT RESTING IN BED WATCHING TV. SEMI LERMA'S POSITION. NO SIGNIFICANT CHANGES NOTED. REMINDED PT TO DRINK APPLE JUICE BECAUSE BS HAS BEEN CONSISTENLY LOW. OTHERWISE, PT STABLE. WILL ENDORSE CARE TO NEXT SHIFT.
--- NOTE | 2020-01-29 19:45 | NUR ---
RECEIVED PT FROM AM NURSE, PT AWAKE IN BED AA/O X 4 PRIMARILY ROMANSH SPEAKING. DENIES HEADACHE/ DIZZINESS AT THIS TIME. PULSES PALPABLE, EDEMA NOTED TO BUE/BLE. LUNG SOUNDS DIM TO BASES, PT ON ROOM AIR, NO RESPIRATORY DISTRESS, RESPIRATIONS E/U. ACTIVE BS X 4 QUADS, ABD SOFT AND NON TENDER. DENIES N/V/D. SEVERAL BM'S TODAY 01/29/20 PER AM NURSE. FC WAS DC DURING AM SHIFT. PT ENCOURAGED TO AMBULATE AND USE COMMODE WITH STAFF ASSISTANCE. LLE SCAB PRERNA PER ORDER. R BUTTOCK WOUND WITH DRSG IN PLACE, CDI. DENIES PAIN AT THIS TIME. IV SITE TO LH INTACT, IVPB FROM AM SHIFT STILL INFUSING AT THIS TIME. CALL BUTTON WITHIN REACH, WILL CONTINUE TO MONITOR.
[2020-01-29 21:26] VITALS: BP 158/81
--- NOTE | 2020-01-30 00:05 | NUR ---
PT IN BED RESTING WITH EYES CLOSED, BUT EASILY AROUSABLE. RESPIRATIONS E/U, NO SOB AND NO RESPIRATORY DISTRESS ON ROOM AIR. PT DENIES PAIN. IV ATB ZOSYN INFUSING WELL. IV SITE INTACT, NO REDNESS AND NO INFILTRATION. NO ACUTE DISTRESS AT THIS TIME. CALL BUTTON WITHIN REACH, WILL CONTINUE TO MONITOR.
--- NOTE | 2020-01-30 02:59 | NUR ---
PT COMPLAINED OF HEADACHE AND COUGH. PRN TYLENOL GIVEN ORDERED. RT CALLED FOR BREATHING TREATMENT. FALL PRECAUTIONS IN PLACE FOR SAFETY. CALL BUTTON WITHIN REACH, WILL CONTINUE TO MONITOR.
[2020-01-30 05:00] VITALS: BP 150/72
--- NOTE | 2020-01-30 07:00 | NUR ---
RECIEVED PT RESTING IN BED WITH NO C/O PAIN OR DISTRESS. A/O X4 WITH NO WEST OR DIZZINESS. BLE/BUE TRACE EDEA NOTED. LUNGS DIMINISHED WITH NO SOB NOTED, ON RA. RIGHT BUTTCOK AND RLE WOUNDS, DRESSING/OPTIFOAM CDI. LEFT HAND IVCDI AND PATENT. SAFETY PRECAUTIONS IN PLACE, CALL LIGHT WITHIN REACH, WILL MONITOR.
--- NOTE | 2020-01-30 07:15 | NUR ---
PT SLEPT IN INTERVALS THROUGHOUT THE NIGHT, BUT EASILY AROUSABLE. DRSG TO R BUTTOCK SOILED, WOUND CARE AND DRSG CHANGE PROVIDED PER ORDER. COOLING MEASURES APPLIED AND TEMPERATURE DECREASED. NO ACUTE DISTRESS AT THIS TIME. FALL PRECAUTIONS IN PLACE, CARE ENDORSED TO AM NURSE.
[2020-01-30 07:49] VITALS: BP 168/82; BP 95/50
[2020-01-30 09:39] LABS: CALCIUM 7.2 mg/dL (8.5-10.1); CARBON DIOXIDE 20.9 mmol/L (21-32); CREATININE SERUM 3.5 mg/dL (0.6-1.0); POTASSIUM SERUM 4.4 mmol/L (3.5-5.1)
--- NOTE | 2020-01-30 11:55 | NUR ---
TYLENOL GIVEN PER EMAR FOR C/O GENERALIZED MILD BODY PAIN, WILL REASSESS.
[2020-01-30 13:31] VITALS: BP 150/78
--- NOTE | 2020-01-30 16:59 | NUR ---
TYLENOL GIVEN PER EMAR FOR TEMP OF 101.3, WILL REASSES. COOLING MEASURES IMPLEMENTED.
[2020-01-30 17:34] VITALS: BP 150/79
--- NOTE | 2020-01-30 18:37 | NUR ---
PT RESTING IN BED WITH NO C/O PAIN OR DISTRESS. A/O X4 WITH NO WEST OR DIZZINESS. BLE/BUE TRACE EDEA NOTED. LUNGS DIMINISHED WITH NO SOB NOTED, ON RA. RIGHT BUTTCOK AND RLE WOUNDS, DRESSING/OPTIFOAM CDI, CHANGED BUTTOCK DRESSING X2 TODAY. LEFT HAND IV CDI AND PATENT. SAFETY PRECAUTIONS IN PLACE, CALL LIGHT WITHIN REACH, WILL ENDORSE CARE TO NIGHT NURSE.
--- NOTE | 2020-01-30 20:00 | NUR ---
PT A/A/O X3, SITTING ON THE COMMODE HAVING A BOWEL MOVEMENT. DENIES DIZZINESS AND HEADACHE. BREATH SOUNDS CLEAR. BREATHING EVEN AND UNLABORED ON ROOM AIR. DENIES CHEST PAIN AND PRESSURE. BOWEL SOUNDS ACTIVE. NO C/O N/V AND ABD PAIN. TRACE EDEMA NOTED ON BUE AND PITTING EDEMA NOTED ON BLE. RIGHT MID BUTTOCK WITH WOUND WITH DRESSING C/D/I. RLE WITH DRESSING C/D/I. IV INTACT ON THE LEFT HAND. MADE PT COMFORTABLE. PLACED CALL LIGHT WITH IN REACH. WILL CONTINUE TO MONITOR.
[2020-01-30 20:30] VITALS: BP 129/81
--- NOTE | 2020-01-31 00:21 | NUR ---
PT RESTING WITH EYES CLOSED. NO DISTRESS AND DISCOMFORT NOTED. WILL CONTINUE TO MONITOR.
[2020-01-31 05:34] VITALS: BP 164/79
--- NOTE | 2020-01-31 06:01 | NUR ---
DRESSING CHANGED ON THE RIGHT MID BUTTOCKS NO DRAINAGE OR ODOR NOTED . PT TOLERATED IT WELL. WILL ENDORSE TO THE AM NURSE ACCORDINGLY.
--- NOTE | 2020-01-31 06:35 | NUR ---
PT BP 164/79 HR 83. GAVE PT SCHEDULED 0900 LOPRESSOR PO AT THIS TIME. PT TOLERATED IT WELL. DR. ANGELO NOTIFIED. NO NEW ORDERS GIVEN. WILL ENDORSE TO THE AM NURSE ACCORDINGLY.
[2020-01-31 08:46] VITALS: BP 141/71
--- NOTE | 2020-01-31 09:16 | NUR ---
FEVER 102.2. TYLENOL PO GIVEN.
--- NOTE | 2020-01-31 10:15 | NUR ---
PROCRIT GIVEN PER EMAR. HGB/HCT 7.8 LSAT 01/28/20
--- NOTE | 2020-01-31 10:25 | NUR ---
SEEN AOX4, NOT IN DISTRESS, MEDSURG,PALPABLE PULSES, TRACE BUE EDEMA, BLE EDEMA, CTA ON BLF, +BS, VOIDS WITH NO DYSURIA, GENERALIZED WEAKNESS, AMBULATORY WITH ASSIST, R MID BUTTOCK ULCER , RLE ULCER WITH SCAB , TOOL AND DIE MAKER APPRENTICE, NO PAIN AT THIS TIME, IV INTACT AND PATENT AT LH. NO REDNESS OR SWELLING. CALL LIGHT WITHIN REACH, BED AT LOWEST POSITION, SIDE RAILS UP.
--- NOTE | 2020-01-31 10:37 | NUR ---
PHYSICAL THERAPY NOTE REHAB TX ON HOLD AT THIS TIME, PT PRESENT WITH 102.4 TEMP. WILL CONSULT WITH ATTENDING RN, BRITTANIE.
--- NOTE | 2020-01-31 10:41 | NUR ---
SUSY ZEPEDA MADE AWARE THAT PATIENT STILL HAS FEVER AFTER TYLENOL ADMINISTRATION. PER KATELYN, THAT'S OK. JUST MONITOR. PATIENT NEEDS TO BE HERE SINCE NO ONE IS TAKING CARE OF HER AT HOME. ICE PACKS PLACED FOR FEVER.
--- NOTE | 2020-01-31 11:41 | NUR ---
CBG 209. REG 6 UNITS INSULIN GIVEN SQ
--- NOTE | 2020-01-31 11:54 | NUR ---
CBG 170. REG 4 UNITS INSULIN SQ GIVEN
[2020-01-31 12:07] VITALS: BP 157/77
--- NOTE | 2020-01-31 12:52 | NUR ---
DRESSING CHANGED PER WOUND CARE INSTRUCTION. OPTIFOAM IN PLACE.
--- NOTE | 2020-01-31 12:53 | NUR ---
COVID 19 SWAB TAKEN
--- NOTE | 2020-01-31 14:23 | NUR ---
report given to cindi davis. patient placed on droplet isolation, transfered to [address] [place] [address]. belongings with patient.
[2020-01-31 14:29] LABS: BASOPHIL % 0.1 % (0-2); PLATELET COUNT 221 x10^3mcL (130-400)
--- NOTE | 2020-01-31 14:29 | NUR ---
PATIENT TRANSFERED TO ROOM 202 REPORT TAKEN FRON 2N ANDREWS GU. PATIENT HAD SEVERAL QUESTION WHEN SHE ARRIVED TO THE UNIT. VITALS ASSESSED, PATIENT ON ROOM AIR. IV TO LEFT HAND IS NOT PATENT, AND PATIENT REPORTS PAIN WHILE FLUSHING. WILL REMOVE IV AND RESTART.
[2020-01-31 14:34] LABS: RED CELL DISTRIBUTION WIDTH 18.3 % (11.5-14.5)
[2020-01-31 15:03] VITALS: BP 140/75
[2020-01-31 15:36] LABS: CALCIUM 7.6 mg/dL (8.5-10.1); CARBON DIOXIDE 21.7 mmol/L (21-32); POTASSIUM SERUM 4.2 mmol/L (3.5-5.1)
--- NOTE | 2020-01-31 15:51 | NUR ---
DR. MILLER IN TO EVAL PT. PER MD BELIEVES FEVERS COULD BE D/T KSY CATH BEING RECENTLY D/C A FEW DAYS AGO. RECEIVED ORDER TO BLADDER SCAN THE PT IF >400ML TO INSERT SKY. ORDER ENTERED AND ATTENDING NURSE NOTIFIED.
--- NOTE | 2020-01-31 17:36 | NUR ---
O2 FOUND TO BE 91% OF ROOM AIR, PATIENT STARTED ON 1 LITER OR 02 VIA NC.
--- NOTE | 2020-01-31 17:52 | NUR ---
LATE ENTRY 1500: BLADDER SCAN COMPLETED, 219ML VISUALIZED, SINCE LESS THAN 400ML SKY WAS NOT INSERTED.
[2020-01-31 18:39] VITALS: BP 149/77
--- NOTE | 2020-01-31 19:16 | NUR ---
REPORT GIVEN TO FOREST FIRE MANAGEMENT OFFICER NURSE, CARE ENDORSED
[2020-01-31 21:09] VITALS: BP 150/78
--- NOTE | 2020-01-31 22:17 | NUR ---
EYES CLOSED, BREATHING EVEN AND UNLABORED. LYING ON HER RIGHT SIDE. PT REPOSITIONS SELF IN BED. CALL LIGHT WITHIN EASY REACH. HOB KEPT ELEVATED 30 DEG.
--- NOTE | 2020-01-31 22:22 | NUR ---
LATE ENTRY: 2000H - AWAKE AND ALERT, ORIENTED TO NAME, PLACE, TIME AND SITUATION. ABLE TO MAKE NEEDS KNOWN. BREATHING EVEN AND UNLABORED, LUNG SOUNDS DIMINISHED, OCCASSIONAL DRY COUGH NOTED. ABLE TO COMPLETE SENTENCES WITHOUT DIFFICULTY. MED SURG PT. GENERALIZED WEAKNESS, REPOSITIONS SELF IN BED. CALL LIGHT WITHIN EASY REACH.
--- NOTE | 2020-02-01 02:14 | NUR ---
AWAKE AND ALERT, BREATHING EVEN AND UNLABORED. CALL LIGHT WITHIN EASY REACH. DUE MERREM IVPB ADMINISTERED. IV SITE FREE FROM REDNESS OR SWELLING. CALL LIGHT WITHIN EASY REACH.
--- NOTE | 2020-02-01 02:16 | NUR ---
LATE ENTRY: 2030H - DEVELOPER ARCHITECT DENIZ REPORTED CHANGING PT'S PADS. PT HAD SMALL BOWEL MOVEMENT, PADS SUBSTANTIALLY WET WITH URINE.
--- NOTE | 2020-02-01 05:15 | NUR ---
DRESSING CAME OFF FROM WOUND TO RIGHT BUTTOCKS. NOTED YELLOW/WHITE COLOR TO BASE OF WOUND. THERAHONEY DRESS APPLIED, SECURED AND COVERED WITH OPTIFOAM.
--- NOTE | 2020-02-01 06:05 | NUR ---
AWAKE AND ALERT, PT REPOSITIONS SELF IN BED. BREATHING EVEN AND [id number]. CALL LIGHT WITHIN EASY REACH.
[2020-02-01 06:20] VITALS: BP 159/80
--- NOTE | 2020-02-01 07:06 | NUR ---
IN NO ACUTE DISTRESS. BREATHING EVEN AND UNLABORED. ENDORSED TO NURSE AVITIA
[2020-02-01 07:19] LABS: CALCIUM 7.7 mg/dL (8.5-10.1); CARBON DIOXIDE 19.3 mmol/L (21-32); POTASSIUM SERUM 4.4 mmol/L (3.5-5.1)
--- NOTE | 2020-02-01 07:30 | NUR ---
RECEIVED PT LYING IN BED A/A. BREATHING EQUAL/UNLABORED ON RA. MED SURG. NO C/O MILD PAIN TO LOWER ABD. IV SITE WNL. BED IN LOW POSITION, CALL LIGHT IN REACH, SAFETY PRECAUTIONS IN PLACE. WILL CONTINUE TO MONITOR
[2020-02-01 07:47] LABS: CREATININE SERUM 4.2 mg/dL (0.6-1.0)
[2020-02-01 07:48] LABS: BASOPHIL % 0.3 % (0-2); PLATELET COUNT 216 x10^3mcL (130-400); RED CELL DISTRIBUTION WIDTH 19.5 % (11.5-14.5)
[2020-02-01 07:54] VITALS: BP 150/70
--- NOTE | 2020-02-01 09:40 | NUR ---
SKY CATHETER PLACED. PT SONJA WELL. 1250ML CLOUDY/YELLOW URINE OUT
--- NOTE | 2020-02-01 10:19 | NUR ---
DRESSING TO R. BUTTOCKS WAS SOILED, NEW DRESSING PLACED. PT STATES "PAIN IS BETTER" AFTER SKY CATHETER PLACED
[2020-02-01 11:49] VITALS: BP 167/86
--- NOTE | 2020-02-01 13:48 | NUR ---
CALLED AND REPORTED WOUND CULTURE SUSCEPTIBILITY TO SUSY PERKINS.
[2020-02-01 14:00] VITALS: BP 149/80
[2020-02-01 15:59] VITALS: BP 146/76
--- NOTE | 2020-02-01 16:01 | NUR ---
Follow-up Nutrition Assessment: ROCHELLE FRIEDMAN 49F MR Dx: Sepsis hyperkalemia, Renal failure PMHx: DM, GERD, HTN, Dyslipidemia Labs: (01/31) Na 130L, BG 117H, BUN 59H, Cr 4.2H, H/H 8.3/25L Meds: Colace, Ferrlecit, Flomax, Lipitor, Lopressor, Merrem, Norvasc, Procrity, Vancomycin PRN meds: Apesolin, Benadryl, D50%, Humulin, Hydralazine, Miralax, normodyne, Tylenol, Zofran Diet: CCHO 60, Cardiac, Msoft diet, Marty BID, FR 1500 PO Intake: 50-100% x 10 meals with average PO intake of 67% Weights: (01/26)60kg/132lbs; Bed scale: 79.2kg/174lbs (01/17) 60kg/132lbs (01/12) bedscale: 65kg/145lbs *wt change may d/t wound vac hanging off the bed Edema: Trace edema note BLE/BUE Last BM: 01/29 Skin: right buttocks wound Michael: [address] Note (01/26), pt was not responding to wound vac and Dr. Petty recommended higher level of care. Pt had average PO intake of 85% since last visit, which provided approximately 1429kcal and 71g protein meeting 79% of estimated kcal needs and 79% of estimated protein needs. Pt was seen lying in bed with no s/s of distress. SKIP LOADER helped with interpretation. Per pt, she had good appetite, and she took her Marty today. Pt reported not being able to take Marty yesterday d/t water being cold. Encouraged pt to take Marty for her wound healing. DM education was also given to pt. Encouraged pt to be mindful of high carbohydrate food or food with added sugar. RD recommended to use sample menu as a reference. Written education on T2DM nutrition therapy in [employer] was also provided. Pt acknowledged and accepted education. RD Note (01/31): Per pt's primary RN, pt did not exhibit any GI distress today. Pt was transferred in to an isolation room. Per progress note (01/31), right hip wound was not improving, pending placement for higher level of care, and surgeon recommended for flap surgery. Pt had average 67% PO intake since last visit. Current diet provided 984.23kcal and 52g protein meeting 55% of estimated kcal needs and 58% of estimated protein needs. Estimated Nutritional Needs Based on current body weight (60kg) Energy: 4102-3106 kcal/day (30-35 kcal/kg for sepsis and wound healing) Protein: 90-120 g/day (1.5-2 g/kg for sepsis and wound healing) Fluid: FR 1500ml Nutrition Diagnosis: (ongoing) 1. Increased energy and protein needs r/t hypermetabolic state and skin integrity a/e/b pt has sepsis and pressure ulcer to buttocks. (resolved; Pt receiving mechanical soft-chopped diet textures) 2. Masticatory difficulty r/t loose teeth a/e/b pt reported having 3 loose teeth and prefers mechanical soft diet and soup. (ongoing, modified) 3. Impaired nutrition utilization r/t endocrine dysfunction a/e/b PMHx of DM, and elevated glucose 117 on 01/31. Intervention: 1. Recommend continue Mechanical soft CCHO 60, cardiac diet as tolerate 2. Recommend continue Marty BID for wound healing; Nursing and RD to encourage intake. 3. Recommend ensure high protein BID for additional 320kcal and 32g protein. Monitor/Evaluate: Goal: Have pt meet at least 75% of estimated needs (not met, ongoing) Monitor: PO intake, ONS intake, Labs, GI function F/U in 3-5 days as moderate risk 02/03-
--- NOTE | 2020-02-01 18:11 | NUR ---
PT SITTING UP IN BED A/A. BREATHING EQUAL/UNLABORED ON 1L/NC. NO ACUTE CHANGES/PAIN/DISTRESS. IV SITE WNL. SKY IN PLACE FLOWING TO GRAVITY WITH YELLOW URINE. BED IN LOW POSITION, CALL LIGHT IN REACH, SAFETY PRECAUTIONS IN PLACE. WILL ENDORSE TO NIGHT NURSE
--- NOTE | 2020-02-01 19:05 | NUR ---
RECEIVED PATIENT FROM PREVIOUS SHIFT NURSE. PATIENT IN NO ACUTE DISTRESS. PATIENT AWAKE, ALERT AND ORIENTED X4. DENIES ANY WEST OR DIZZINESS. NO C/O PAIN, CHEST PAIN OR SOB AT THIS MOMENT. EVEN AND UNLABORED BREATHING. SKY IN PLACE, DRAINING TO GRAVITY. SKY WNL. DRESSING WNL, CDI. RAC IV WNL. NO ERYTHEMA/EDEMA AT IV SITE. BED IN LOWEST POSITION. CALL LIGHT WITHIN REACH.
[2020-02-01 20:59] VITALS: BP 155/78
--- NOTE | 2020-02-01 23:02 | NUR ---
DR ANGELO INFORMED OF PATIENTS POSITIVE RESULTS FOR COVID-19. NO FURTHER ORDERS AT THIS MOMENT.
--- NOTE | 2020-02-02 00:45 | NUR ---
PATIENT SLEEPING. NO ACUTE DISTRESS, EVEN AND UNLABORED BREATHING. NC IN PLACE. SKY DRAINING TO GRAVITY. BED IN LOWEST POSITION. CALL LIGHT WITHIN REACH. SAFETY PRECUATIONS IN PLACE.
[2020-02-02 06:32] VITALS: BP 119/65
--- NOTE | 2020-02-02 07:20 | NUR ---
FOUND PT ON 5L NC SPO2:84%. PLACED ON 9L OXYMIZER DUE TO DESATURATION. SPO2:91%. PT TOLERATING WELL. WILL CONT.TO MONITOR
[2020-02-02 07:36] LABS: BASOPHIL % 0.3 % (0-2); PLATELET COUNT 173 x10^3mcL (130-400)
[2020-02-02 07:50] VITALS: BP 162/92
[2020-02-02 07:54] LABS: RED CELL DISTRIBUTION WIDTH 19.8 % (11.5-14.5)
--- NOTE | 2020-02-02 08:18 | NUR ---
AT 0745 - RECEIVED PATIENT FROM NIGHT NURSE. AWAKE, ALERT AND APPEARS ORIENTED. SPEAKING ON HER CELL PHONE. MONITOR SHOWING SINUS RHYTHM WITH PACS AND OCCASIONAL PVC'S; RATE 90'S RESPIRATIONS REGULAR WITH FLUCTUATING O2 SAT. PATIENT WAS JUST PLACED ON OXYMIZER AT 9L/MIN, BY RT. O2 SAT CURRENTLY 92% BUT FLUCTUATES DOWN TO 87%. SKY CATHER DRAINIGN YELLOW URINE. OPTIFOAM TO R BUTTOCK IS DRY AND INTACT. PATIENT SAT UP IN BED FOR BREAKFAST. ON DROPLET ISOLATION FOR POSITIVE COVID-19.
--- NOTE | 2020-02-02 08:28 | NUR ---
DR MILLER ON UNIT. SPOKE WITH NURSE REGARDING PLAN OF TREATMENT. DOES NOT PLAN TO REMOVE STENTS AT THIS TIME UNTIL RENAL FUNCTION STABILIZES.
--- NOTE | 2020-02-02 09:00 | NUR ---
RECEIVED CALL FROM PATIENT'S DAUGHTER, KENTRELL. SHE REQUESTED THAT PATIENT BE TRANSFERRED TO ANOTHER HOSPITAL; [facility]LA REQUEST. INFORMED DAUGHTER THAT WE WILL CONTACT CASE AMNAGEMENT WITH CHARLA'S REQUEST. CHARGE NURSE WILL SPEAK WITH SS.
[2020-02-02 09:03] LABS: CALCIUM 8.2 mg/dL (8.5-10.1); CARBON DIOXIDE 18.7 mmol/L (21-32); MAGNESIUM 1.8 mg/dL (1.8-2.4); POTASSIUM SERUM 4.4 mmol/L (3.5-5.1)
[2020-02-02 09:15] LABS: CREATININE SERUM 4.7 mg/dL (0.6-1.0)
--- NOTE | 2020-02-02 10:03 | NUR ---
SPOKE WITH PATIENT USING SPNISH LANGUAGE INTERPRETATION BY UTILITY HAND, RENETTA. SHE SPOKE WITH CHARLA THROUGH CALL LIGHT SYSTEM. PATIENT INFORMED OF CURRENT PLAN OF CARE AND MEDICATIONS. INSTRUCTED IN USE OF INSENTIVE SPIROMETER AND ENCOURAGED PATIENT TO USE IT MIN 10 X /HR.
[2020-02-02 11:58] VITALS: BP 164/78
--- NOTE | 2020-02-02 12:00 | NUR ---
BLOOD SUGAR 167. GIVEN 4 UNITS REGULAR INSULIN PER SLIDING SCALE. PATIENT SPEAKING ON THE CELL PHONE. O2 SAT 90%
--- NOTE | 2020-02-02 13:07 | NUR ---
SITTING UP IN BED EATING LUNCH. O2 SAT 87%. REMAINS ON OXYMIZER AT 9 L
--- NOTE | 2020-02-02 14:13 | NUR ---
IV MERRIM INFUSING PER EMAR.
[2020-02-02 16:16] VITALS: BP 144/70
--- NOTE | 2020-02-02 18:30 | NUR ---
AWAKE, ALERT AND ORIENTED X 4. PATIENT HAS SPENT MOST OF THE DAY SPEAKING ON CELL PHONE. ENCOURAGED PATIENT TO REST MORE IN ORDER TO IMPROVE O2 SATURATION. ALSO ENCOURAGED USE OF INSNETIVE SPIROMETER. PATIENT SAYS THAT SHE HAS BEEN USING IT. MONITOR SHOWING SINUS RHYTHM; RATE 80'S. NO C/O PAIN. REMAINS ON OXYMIZER AT 9L/MIN. O2 SATS 85-91%. EATING SMALL AMOUNTS OF CCHO DIET. SKY CATHETER DRAINING YELLOW URINE WITH 500 ML OUTPUT THIS SHIFT. CURRENTLY VANCOMYCIN INFUSING. WILL INFUSE TODAY'S DOSE OF FERRLICIT WHEN COMPLETED. WILL ENDORSE CARE TO NIGHT NURSE.
--- NOTE | 2020-02-02 20:00 | NUR ---
REC'D PT FROM DAY NURSE. PT RESTING IN BED. AAOX4, SPEECH CLEAR, FOLLOWS COMMANDS. TELE 3. DENIES DIZZINESS OR PALPITATIONS. REPORTS STERNAL CHEST PRESSURE UPON DEEP BREATHS, TOLERABLE. REPORTS SOME DYSPNEA. SPO2 83-84% ON 9L OXYMIZER. INCREASED TO 10L OXYMIZER. ENCOURAGED PT TO PRONE TOLERATED VIA ANIMAL TECH PHONE. PT VERBALIZED UNDERSTANDING BUT STATES SHE IS UNABLE TO D/T SOB IN THAT POSITION. ENCOURAGED TO POSITION ON R/L SIDE INSTEAD AND NOT ON HER BACK TO PROMOTE OXYGENATION. RT NOTIFIED TO GIVE TREATMENT. NO EDEMA NOTED. ABD SOFT/ROUND. SKY DRAINING YELLOW URINE WITH SEDIMENTS TO GRAVITY. 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 BLE DRY SCALY SKIN. PT HAD A LARGE, SOFT BM. CLEANED AND CHANGED. NEW DRESSING TO R BUTTOCKS APPLIED. R BUTTOCK OPEN WOUND WITH PINK AND YELLOW WOUND BED. SOME PACKING NOTED. CLEANSED WITH NS, APPLIED THERAHONEY SHEET, AND OPTIFOAM DRESSING. IV TO RAC FLUSHED AND PATENT, SITE WNL. CALL LIGHT WITHIN REACH, BED AT LOWEST POSITION. WILL CONTINUE TO MONITOR.
[2020-02-02 20:50] VITALS: BP 136/69
--- NOTE | 2020-02-03 00:18 | NUR ---
SPO2 73-75% ON 10L OXYMIZER. C/O NAUSEA. ZOFRAN GIVEN. ENCOURAGED TO PRONE BUT DID NOT WANT TO. REPOSITIONED TO L SIDE AND INCREASED O2 TO 15 L. SPO2 LOW 80'S. RT NOTIFIED. STATED WILL PUT PT ON NONREBREATHER.
[2020-02-03 05:45] VITALS: BP 143/67
--- NOTE | 2020-02-03 06:16 | NUR ---
PT AWAKE AND RESTING IN BED. DESATS WHEN LAYING ON HER BACK- 73% ON 100% NONREBREATHER . INCREASED WHEN TURNED TO R/L SIDE. ENCOURAGED PRONING BUT PT SAYS SHE IS UNABLE TO TOLERATE IT. SPO2 83-90% WHEN ON HER SIDE. SKY CARE PROVIDED. PT HAD ANOTHER SOFT BM AND SOILED DRESSING TO R BUTTOCKS. DRESSING CHANGED- NS, PAT DRY, THERAHONEY SHEET, AND OPTIFOAM DRESSING. TEMP 100.7. PRN TYLENOL GIVEN AND COOLING MEASURES INITIATED. CALL LIGHT WITHIN REACH, BED AT LOWEST POSITION. WILL ENDORSE TO DAY NURSE.
--- NOTE | 2020-02-03 07:00 | NUR ---
RECIEVED PT RESTING IN BED A/O X4. TELE#3 CONNECTED TO PT, DENIES ANY CP OR PRESSURE. LUNGS DIMINISHED AND ON 100% NONREBREATHER. SATURATION FLUCTUATING FROM 83% TO 94% DEPENDING ON PT COMPLIANCE OF KEEPING O2 ON AND POSITIONING CORRECTLY. EDUCATED PT ON KEEPING O2 ON AND TO LAY PRONE POSITION FOR OPTIMAL O2 FLOW. SKY CATHETER IN PLACE AND DRAINING YELLOW URINE, DENIES PAIN OR BURNING. RIGHT BUTTOCK AND RLE WOUNDS WITH DRESSING CDI. RAC IV CDI AND PATENT. SAFETY PRECAUTIONS IN PLACE, CALL LIGHT WITHIN REACH, WILL MONITOR CLOSELY.
[2020-02-03 07:36] LABS: BASOPHIL % 0.2 % (0-2); PLATELET COUNT 239 x10^3mcL (130-400)
[2020-02-03 08:02] LABS: RED CELL DISTRIBUTION WIDTH 20.7 % (11.5-14.5)
[2020-02-03 08:41] LABS: CALCIUM 7.3 mg/dL (8.5-10.1); CARBON DIOXIDE 17.8 mmol/L (21-32); POTASSIUM SERUM 4.1 mmol/L (3.5-5.1)
[2020-02-03 09:15] VITALS: BP 137/63
--- NOTE | 2020-02-03 09:47 | NUR ---
PT NON-COMPLIANT WITH KEEPING OXYGEN ON CONTINUOUSLY AND NON-COMPLIANT WITH LAYING IN PROPER POSITIONING TO PROMOTE BEST OXYGEN FLOW TO LUNGS. PT INTERMITENTLY TAKES OXYGEN OFF FACE AND LAYS ON BACK OFTEN, WHEN OTHERWISE TOLD NOT TO. CHARGE NURSE MADE AWARE AND EDUCATED PT ON RISKS/BENEFITS AND SHE CONTINUES TO BE NON-COMPLIANT. WHEN PT COMPLIES WITH MY EDUCATION, HER SATURATION RANGES WNL 92% AND ABOVE. WHEN NON-COMPLIANT, IT GOES BELOW NORMAL LIMITS. WILL CONTINUE TO CLOSELY MONITOR AND RE-EDUCATE PT.
[2020-02-03 09:53] LABS: C REACTIVE PROTEIN 13.4 mg/dL (<=0.9)
[2020-02-03 09:56] LABS: CREATININE SERUM 4.5 mg/dL (0.6-1.0)
--- NOTE | 2020-02-03 10:05 | NUR ---
WOUND CARE RE-EVALUATION NOTE: PT.O2 SAT 91% ON PRONING POSITION FACIAL MASK WITH REBREATHER BAG IIN PROPER POSITION, F/C PATENT MODERATE AMOUNT CLEAR YELLOW URINE OUTPUT OBSERVED. PT IS AAX4 AND CALM EXPLAIN TO PT. TO CHANGE WOUND DRESSING, PT. NOD HER HEAD. WOUND ASSESSMENT DONE TO RIGHT BUTTOCK SURGICAL WOUND 7X4X1 CM, UNDERMINING 12 AND 3 O'CLOCK 1CM, 6 O'CLOCK 0.8CM WOUND BED 80% SOFT YELLOW SLOUGH TISSUE, 20% PALE PINK TISSUE, NO ODOR SMALL AMOUNT SEROSANGENOUS DRAINAGE. FRANCHESCA-WOUND SKIN CLEAN DRY AND INTACT. WOUND DRESSING CHANGED AND PT. RESPONDING TO PROCEDURES WELL, NO C/O PAIN. LEFT LOWER LEG PERVIOUS DRY SCAB OFF, TODAY , WOUND BED 100% PINK THIN HEALING SCAR, 4X2.5CM IRREGULAR SHAPE, FRANCHESCA WOUND SKIN DRY AND INTACT. POC DISCUSSED WITH PRIMARY RN. WILL DISCONTINUE BETADINE TO LLE SCAB. AND WILL CONTINUE THERAHONEY DRESSING TO RIGHT BUTTOCK ORDERED COMORBIDITIES DELAY WOUND HEALING AND FURTHER SKIN BREAKS: WOUND INFECTION, DM, COVID POSITIVE, WEAK IMMUNE SYSTEM, LOW ALBUMIN LEVEL 1.2 (01/14/2020), HEMOGLOBIN 8.4 AND HEMATOCRIT 26 (02/03/2020) ABOVE COMORBIDITIES MAY POSSIBLE ALTER THE OUTCOME OF POTENTIAL SKIN FLAP PROCEDURES. POC DISCUSSED WITH SUSY PERKINS.
[2020-02-03 12:11] VITALS: BP 115/62
[2020-02-03 17:41] VITALS: BP 124/64
--- NOTE | 2020-02-03 18:40 | NUR ---
PT RESTING IN BED A/O X4. TELE#3 CONNECTED TO PT, DENIES ANY CP OR PRESSURE. LUNGS DIMINISHED AND ON 100% NONREBREATHER. SATURATION FLUCTUATING FROM 83% TO 94% DEPENDING ON PT COMPLIANCE OF KEEPING O2 ON AND POSITIONING CORRECTLY. EDUCATED PT ON KEEPING O2 ON AND TO LAY PRONE POSITION FOR OPTIMAL O2 FLOW. SKY CATHETER IN PLACE AND DRAINING YELLOW URINE, DENIES PAIN OR BURNING. RIGHT BUTTOCK WOUND DRESSING CDI, CHANGED X2 TODAY. RAC IV CDI AND PATENT. SAFETY PRECAUTIONS IN PLACE, CALL LIGHT WITHIN REACH, WILL ENDORSE CARE TO NIGHT NURSE.
--- NOTE | 2020-02-03 20:30 | NUR ---
REC'D PT FROM DAY NURSE. PT RESTING IN BED. AAOX4, SPEECH CLEAR, FOLLOWS COMMANDS. PERIORBITAL EDEMA. TELE 3. DENIES CP, DIZZINESS, OR PALPITATIONS. DENIES RESP DISTRESS OR SOB. RESP SHALLOW AND UNLABORED ON 15L 100% NONREBREATHER, SPO2 LOW 80'S. WILL NOTIFY RT. ABD SOFT/ROUND. DENIES ABD PAIN, TENDERNESS, OR N/V. TRACE EDEMA BLE. RLE DRESSING CDI. R BUTTOCKS OPTIFOAM CDI. SKY DRAINING YELLOW URINE TO GRAVITY. BLE SKIN DRY AND SCALY. IV TO RAC FLUSHED AND PATENT, SITES WNL. CALL LIGHT WITHIN REACH, BED AT LOWEST POSITION. WILL CONTINUE TO MONITOR.
--- NOTE | 2020-02-03 20:47 | NUR ---
PT SATURATING IN THE 70'S WHEN ON HER BACK. ENCOURAGED TO PRONE BUT PT STATES SHE IS UNABLE TO. REPOSITIONED TO R AND L SIDE. PT SATURATION ONLY UP TO 84% ON 15L 100% NONREBREATHER. PT IS NOT IN ANY RESP DISTRESS. RESP SHALLOW AND UNLABORED. RT IN TO GIVE A BREATHING TREATMENT. DR. ANGELO AWARE. REC'D ORDER FOR TRANSFER.
--- NOTE | 2020-02-03 20:53 | NUR ---
SPO2 83%. NEVIN SPARROW PROVIDED RESEARCH DIETITIAN TO ENCOURAGE PT TO PRONE. PT STATES SHE WILL TRY HER BEST BUT IS UNABLE TO TOLERATE IT. CURRENTLY LAYING ON R SIDE. WAITING FOR BED IN ICU.
[2020-02-03 21:44] VITALS: BP 139/72
--- NOTE | 2020-02-03 23:49 | NUR ---
REPORT GIVEN TO ICU NURSE EMELY
--- NOTE | 2020-02-04 00:45 | NUR ---
RECEIVED REPORT FROM ANDREWS CARRANZA. NURSING UPDATES POC DISCUSSED, AWAITING PT ARRIVAL.
--- NOTE | 2020-02-04 00:56 | NUR ---
PT ATTEMTPED OXYIMZER O2 SATS POOR 70'S. PT DENIES SOB BUT NOTIFED RT TO INITATE HI FLOW. RT @ BEDSIDE. INITATED HI FLOW. WILL CONT TO MONITOR.
--- NOTE | 2020-02-04 01:00 | NUR ---
PT ARRIVED VIA [facility] W/ ANDREWS BENITEZ. PT A&OX3 RESPONDS TO COMMANDS BUT IS MAINLY ROMANSH SPEAKING. PERRL. FOLLOWS COMMANDS AND RESPONDS TO STIMULUS. EENT FREE OF DISCHARGE. EDEMA TO R EYE SOCKET. NO JVD. TRACHEA MIDLINE. BREATHING E/U ON OXYIMIZER BUT O2 SATS POOR 70'S. LUNG SOUNDS DIM MARION. PT DENIES SOB. S1S2 TO AUSC. HR 84. NSR. BP 128/63(102). CAP REFILL < 3 SEC. SKIN IS WARM AND DRY. IV RFA C/D/I. PT IS AMBULATORY @ BASELINE BUT STATED WEAKNESS. CCHO DIET. ABD IS SOFT BUT ROUND. PT DENIES PAIN UPON PALPATION. PT DENIES N/V. F/C SECURE AND INTACT DRAINING FREELY TO GRAVITY. URINE PALE YELLOW. SKIN W/ L BUTTOCKS WOUND, OPTIFOAM IN PLACE, SEE PHOTOS. PT MOOD CALM AND COOPERATIVE.
[2020-02-04 03:39] VITALS: BP 132/59
[2020-02-04 06:13] LABS: BASOPHIL % 0.1 % (0-2); PLATELET COUNT 298 x10^3mcL (130-400)
[2020-02-04 06:28] LABS: CALCIUM 7.9 mg/dL (8.5-10.1); CARBON DIOXIDE 18.7 mmol/L (21-32); POTASSIUM SERUM 4.3 mmol/L (3.5-5.1)
[2020-02-04 06:32] LABS: C REACTIVE PROTEIN 16.3 mg/dL (<=0.9)
[2020-02-04 06:33] LABS: CREATININE SERUM 4.7 mg/dL (0.6-1.0)
[2020-02-04 07:08] LABS: RED CELL DISTRIBUTION WIDTH 20.6 % (11.5-14.5)
[2020-02-04 08:00] VITALS: BP 125/63
[2020-02-04 12:00] VITALS: BP 138/67
[2020-02-04 16:00] VITALS: BP 126/66
--- NOTE | 2020-02-04 18:29 | NUR ---
DR. GARCIA MADE AWARE PATIENT 02 SAT IS IN THE 60'S AND PATIENT IS CURRENLTY ON HIGH FLOW 40 L/100% FI02. PATIENT IS SUPPOSE TO WEAR THE NON REBREATHER OVER THE HIGH FLOW BUT PATIENT REFUSES AND STATES SHE WANTS THE "OXYGEN DOWN LOWER, TOO MUCH AIR". PATIENT EDUCATED THE NEED FOR HIGH 02 FLOW AND THE POSSIBLE NEED FOR INTUBATION. PATIENT JUST STATES "NO" AND LOOKS AWAY. DR. GARCIA CALLED TO ASK IF SHE CAN TALK TO THE PATIENT REGARDING POSSIBLE INTUBATION. WILL CONTINUE TO MONITOR.
--- NOTE | 2020-02-04 19:24 | NUR ---
SBAR REPORT GIVEN TO ANDREWS FALL.
--- NOTE | 2020-02-04 19:30 | NUR ---
PT REPORT RECEIVED BY AM SHIFT MOTOR VEHICLE COMPLIANCE ANALYST. PT IS AWAKE, ALERT AND ON HIGH FLOW NC FIO2: 100 LPM: 40 AT 33 DEGREE C WITH O2 SAT AT 68-70% AM SHIFT MOTOR VEHICLE COMPLIANCE ANALYST MADE AWARE TO RESIDENT. PT REFUSES TO CONSIDER BEING INTUBATED AND WANTS TO CONTINUE ON HIGH FLOW. PT IS F/C AT THIS TIME. NBP: 136/75 MAP: 94 HR: 93 AT SR. RR: 21. TEMP: 98.0 DEGREE F AXILLARY. PT HAS SODIUM FERRICE GLUCONATE INFUSING AT THIS TIME VIA RAC IV CATH. PT IS PRIMARILY ARMENIAN SPEAKING. COARSE BREATHING SOUNDS BILAT AND DIMINISHED AT THE BASES. NO EDEMA NOTED. PT HAS WOUND DRESSING TO BUTTOCK CDI AND RLE WOUND DRESSING CDI. PT IS ON CCHO DRIVED. ABODMEN SOFT AND NON-TENDER. LAST BM WAS 02/03. PT HAS RAC AND LFA IV CATH IN PLACE SITE CDI NO SIGNS OF INFILTRATION. F/C IN PLACE AND DRAINING NON-BLOODY URINE. PT DENIES CHEST PAIN. WILL CLOSELY MONITOR PT.
[2020-02-04 20:00] VITALS: BP 136/75
--- NOTE | 2020-02-04 20:53 | NUR ---
PT IS TURNED TO RIGHT SIDE WITH HIGH FLOW NC AND NRB IN PLACE PT O2 SAT 79-80% HR: 94 RR: 22 NBP: 133/76 MAP:94 PT EDUCATED ON THE IMPORTANCE IN KEEP THE HIGH FLOW NC ON THROUGHOUT THE NIGHT. PT ABLE TO MAKE NEEDS KNOWN AND FOLLOWS COMMANDS. WILL CONTINUE TO MONITOR PT.
--- NOTE | 2020-02-04 21:31 | NUR ---
PT O2 SAT THIS TIME IS 68- 70% WHILE ON HIGH FLOW NC FIO2: 100 LPM 40 WITH NRB ON TOP. PT STATES FEELING SHORT OF BREATH RR: 27 HR: 93 NBP: 125/72. WILL PAGE RT AND WILL UPDATE WITH PT ATTENDING DOCTOR. WILL CONTINUE TO CLOSELY MONITOR PT.
--- NOTE | 2020-02-04 21:33 | NUR ---
AWAITING ON PLASMA TO BE READY FOR PT TRANSFUSION.
--- NOTE | 2020-02-04 21:50 | NUR ---
DR ANGELO MADE AWARE PT O2 SAT IS IN LOW 70% HR: 85 RR: 25. NO FURTHER ORDERS AT THIS TIME. WILL CONTINUE TO CLOSELY MONITOR PT. PT DECLINES TO GO INTO PRONE POSITION. PT REMAINS ON HIGH FLOW NC WITH NRB.
--- NOTE | 2020-02-04 22:20 | NUR ---
D/W PT ABOUT LOW O2 SAT AND ASKED PT TO ATLEAST SLEEP ON HER SIDE. PT IS LAYING ON HER RIGHT SIDE. O2 SAT IMPROVED TO 85-88% WHILE ON HIGH FLOW NC AND NRB. HR: 82 RR:21 NBP: 128/70 MAP: 98. WILL CONTINUE TO CLOSELY MONITOR PT.
--- NOTE | 2020-02-04 22:21 | NUR ---
PT HAS NOT RECEIVED PLASMA TRANSFUSION D/T PT DOES NOT HAVE A BLOOD BANK WRISTBAND WHICH HAS BEEN REQUESTED FROM ADMISSION AND NO TYPE OF CONSENT IS FOUND IN PT CHART.
--- NOTE | 2020-02-04 22:46 | NUR ---
D/W DR. ANGELO ABOUT ISSUE WITH BLOOD BANK AND PT NOT HAVING A BLOOD BANK WRISTBAND THUS UNABLE TO TRANSFER CONVALESCENT PLASMA. PLANS IS TO HAVE TYPE AND SCREEN DONE AT 0500 02/05/20 AND HAVE CONVALESCENT PLASMA PREPARED AND TRANSFUSED IN THE MORNING.
--- NOTE | 2020-02-04 23:36 | NUR ---
PT NBP: 135/72 HR: 81 RR: 22 O2 SAT 80% WHILE LAYING TO HER RIGHT SIDE. BREATHING IS EQUAL AND UNLABORED AT THIS TIME. PT IS EASILY AWAKENED AND FOLLOWS COMMANDS. PT HAS FULL ROM X 4. PT WITHIN VIEW. WILL CONTINUE TO MONITOR PT. CALL LIGHT AT PT BEDSIDE.
[2020-02-04 23:37] VITALS: BP 135/78
--- NOTE | 2020-02-04 23:54 | NUR ---
DR SANTOS UPDATED OVER THE PHONE AND REQUEST ORDERS FOR PT TO RECEIVE REMDESIVIR 200 MG IV ON FIRST DOSE AND TO RECEIVE REMDFESIVIR 100 MG IV Q D FOR [address] SANTOS UPDATED ON PT SITUATION WITH A CONVALESCENT PLASMA AND IS OK WITH PT RECEIVE TRANSFUSION IN THE MORNING 02/05/20.
[2020-02-05] VITALS (13 sets, daily range): BP systolic 85–137; BP diastolic 40–71
--- NOTE | 2020-02-05 01:21 | NUR ---
PT UPDATED, PT O2 SAT IS 85% WHILE ON HIGH FLOW NC FIO2: 100 LPM: [address] HR: 85 RR: 17 NBP: 141/76 MAP: 97. PT IS LAYING ON HER RIGHT SIDE WHICH HELPS WITH HER O2 SAT. D/W PT ABOUT THE IMPORTANCE OF POSITIONING AND D/W PT IF SHE CONTINUES TO O2 SATURATE AT 60-70S THEN OPTIONS TO BE INTUBATED MAY BE REQUIRED. PT UNDERSTANDS AND EXPLANATION WAS GIVEN 3 TIMES IN UKRAINIAN CLEARLY. PT STATES IF SHE CONTINUES TO STRUGGLE WITH BREATHING THEN SHE IS OKAY WITH BEING INTUBATED. RT UPDATED ON PLANS. AT THIS TIME PT IS MORE COMFORTABLY WHILE LAYING ON HER RIGHT SIDE AND O2 SAT SUSTAINING BETWEEN 82-88% WILL CLOSELY MONITOR PT. RR:16-17.
--- NOTE | 2020-02-05 01:27 | NUR ---
D/T PT RENAL FUNCTIONS PT DOES NOT QUALIFY FOR REMDESIVIR TX.
--- NOTE | 2020-02-05 03:33 | NUR ---
PT REMAINS ALERT AND AROUSABLE AND ORIENTED X 4. PT ABLE TO MAKE NEEDS KNOWN. BREATHING IS EQUAL WITH RR: 22. WHEN PT IS APPLIED TO HER RIGHT SIDE PT O2 SAT IS 78-81% AT THE MOMENT WITH HIGH FLOW NC FIO2: 100 LPM: 40 WITH NRB 15L OVER NC. CALL LIGHT AT PT BEDSIDE. WILL CONTINUE TO CLOSELY MONITOR PT. NBP: 137/71 MAP: 96 HR: 87.
--- NOTE | 2020-02-05 05:22 | NUR ---
D/W DR ANGELO ABOUT ICU 2. PT STATES SHE CAN'T TAKE IT ANYMORE LAYING ON HER RIGHT SIDE AND IS TIRED OF BREATHING. PT O2 SAT STARTED DESATING DOWN TO 70% RR:22 HR: 92 NBP: 123/66 MAP: 85. PT REPEATEDLY STATES SHE AGREES WITH INTUBATION. DR ANGELO PLANS TO ORDER STAT ABG FIRST. WILL CONTINUE TO CLOSELY MONITOR PT. RT UPDATED AND ON ICU FLOOR. PROCESS CONTROL TECH MADE AWARE.
--- NOTE | 2020-02-05 05:40 | NUR ---
PT ABG PAO2 38.5. DR ANGELO MADE AWARE AND AGREES PLANS FOR INTUBATION NOW. ER PAGED AWAITING FOR DR CEE TO COME TO ICU.
--- NOTE | 2020-02-05 05:50 | NUR ---
DR FREEMAN CHANDRA MD ON ICU FOR PT INTUBATION. PT O2 SAT 68% WHILE ON HIGH FLOW NC FIO2:100 LPM: 40 WITH NRB 15L.
--- NOTE | 2020-02-05 06:05 | NUR ---
PT GIVEN KETAMINE 100 MG IVP, ETOMIDATE 20 MG IVP, AND ROCURONIUM 10 MG IVP VIA RFA 22G IV CATH. PT INTUBATED WITH ETT 7.0 LL: 23 CM. PT WAS BRADYCARDIAC HR:30, PT GIVEN ATROPINE 1 MG IVP. PT HR IMPROVED TO HR: 89 BPM [address]. OGT PLACED. PT CURRENTLY NBP: 91/53 MAP: 65 HR: 89 RR: 20 O2 SAT 97% WHILE ON VENT SETTING A/C MODE FIO2: 100 VT: 450 RATE: 18 PEEP: 10. CXR STAT ORDER MADE. BILAT SOFT WRIST RESTRAINTS IN PLACE.
[2020-02-05 06:15] LABS: BASOPHIL % 0.1 % (0-2); PLATELET COUNT 295 x10^3mcL (130-400)
--- NOTE | 2020-02-05 06:52 | NUR ---
PT NOW ON SEDATED PROPOFOL 10 MCG/KG/MIN IV GTT. ORDERS FOR FENTANYL IV GTT AND VERSED IV GTT TO BE PLACED BY DR ANGELO. ONCE FENTANYL IV GTT AND VERSED IV GTT IS MADE AVAILABLE BY PHARMACY, PROPOFOL IV GTT TO BE STOPPED.
[2020-02-05 07:04] LABS: CALCIUM 7.8 mg/dL (8.5-10.1); CARBON DIOXIDE 17.3 mmol/L (21-32); POTASSIUM SERUM 4.1 mmol/L (3.5-5.1)
[2020-02-05 07:16] LABS: C REACTIVE PROTEIN 25.1 mg/dL (<=0.9)
[2020-02-05 07:17] LABS: CREATININE SERUM 4.8 mg/dL (0.6-1.0)
--- NOTE | 2020-02-05 07:28 | NUR ---
PATIENT REACHING FOR ETT, PROPOFOL TITRATED TO 30 MCG/KG/MIN AT THIS TIME, WILL MONITOR FOR PATIENT RESPONSE.
[2020-02-05 07:48] LABS: RED CELL DISTRIBUTION WIDTH 21.9 % (11.5-14.5)
--- NOTE | 2020-02-05 12:27 | NUR ---
BP 85/58 (66), FENTANYL TITRATED TO 0.5 MCG/KG/HR AT THIS TIME, WILL MONTIOR FOR PATIENT RESPONSE.
--- NOTE | 2020-02-05 13:28 | NUR ---
CONVALESCENT PLASMA TRANSFUSION STARTED AT THIS TIME. WILL MONTIOR FOR PATIENT RESPONSE.
--- NOTE | 2020-02-05 17:00 | NUR ---
DR TELLEZ AT BEDSIDE, UPDATED ON PATIENT STATUS INCLUDING ONLY 100ML OF URINE OUT THIS SHIFT. WILL CARRY OUT NEW ORDERS.
--- NOTE | 2020-02-05 17:45 | NUR ---
OGT FEEDING VITAL 1.2 STARTED AT 10ML/HR WITH 100ML FWF Q4HR. WILL MONTIOR FOR PATIENT RESPONSE.
--- NOTE | 2020-02-05 19:07 | NUR ---
SBAR REPORT GIVEN TO ANDREWS ALEX.
--- NOTE | 2020-02-05 20:00 | NUR ---
RECEIVED PT LYING IN BED COMFORTABLY. NO DISTRESS NOTED. KEPT CLEAN AND DRY. ALL NEEDS ATTENDED AND ANTICIPATED. ALL MEDS GIVEN ORDERED. NO SIGNIFICANT CHANGE OF CONDITION NOTED. WILL CONTINUE TO MONITOR.
[2020-02-06] VITALS (13 sets, daily range): BP systolic 74–124; BP diastolic 51–82
[2020-02-06 05:48] LABS: BASOPHIL % 0.1 % (0-2); PLATELET COUNT 273 x10^3mcL (130-400)
--- NOTE | 2020-02-06 06:12 | NUR ---
PT STILL LYING IN BED COMFORTABLY. NO DISTRESS NOTED. MD NOTIFIED ABOUT CENTRAL LINE NEEDED FOR LEVOPHED AND PT SWELLING EVERYWHERE, WITH NO NEW ORDERS. ALL MEDS GIVEN ORDERED. WILL CONTINUE TO MONITOR.
--- NOTE | 2020-02-06 06:14 | NUR ---
WILL ENDORSE TO AM NURSE.
--- NOTE | 2020-02-06 07:10 | NUR ---
ASSUMED CARE OF PATIENT, PT RESTING IN BED WITH EYES CLOSED, VS 53, 71/48 (54), 18, 99%. ETT TO VENT AC MODE TV 450, RATE 18, PEEP 10, 60%. VERSED 1 MG/HR, FENTANYL 0.5 MCG/KG/HR. LEVOPHED AT 5 MCG/MIN TITRATED TO 7 AT THIS TIME. SKY DRAINING SMALL AMOUNT OF YELLOW URINE TO GRAVITY. WILL CONTINUE TO MONITOR.
[2020-02-06 07:25] LABS: rbc morphology (normal/abnorm) ABNORMAL (NORMAL)
--- NOTE | 2020-02-06 07:34 | NUR ---
LEVOPHED TITRATED TO 10 MCG/MIN AT THIS TIME FOR BP 72/46 (55). WILL MONITOR FOR PATIENT RESPONSE.
--- NOTE | 2020-02-06 08:43 | NUR ---
LEVOPHED TITRATED TO 7 MCG/MIN AT THIS TIME. BP 133/94 (107)
[2020-02-06 09:20] LABS: CALCIUM 7.7 mg/dL (8.5-10.1); MAGNESIUM 2.1 mg/dL (1.8-2.4)
[2020-02-06 09:32] LABS: C REACTIVE PROTEIN 15.3 mg/dL (<=0.9); POTASSIUM SERUM 4.7 mmol/L (3.5-5.1)
--- NOTE | 2020-02-06 09:52 | NUR ---
LEVOPHED TITRATED TO 5 MCG/MIN AT THIS TIME. BP 113/65 (81). WILL MONITOR FOR PATIENT RESPONSE
--- NOTE | 2020-02-06 15:30 | NUR ---
DR KOHLER PL[address] WALinda MIRNA AND [facility] CVC AT THIS TIME. PATIENT TOLERATED WELL WITH NO S/SX OF DISTRESS.
--- NOTE | 2020-02-06 16:10 | NUR ---
LEVOPHED TITRATED TO 3 MCG/MIN FOR BP 133/76 (95). WILL MONITOR FOR PATIENT RESPONSE.
--- NOTE | 2020-02-06 18:31 | NUR ---
PT BP 87/50 (63) LEVOPHED INCREASED TO 5 MCG/MIN AT THIS TIME. PT CURRENTLY RECEIVING HD.
--- NOTE | 2020-02-06 19:12 | NUR ---
SBAR REPORT GIVEN TO ANDREWS CORRAL.
--- NOTE | 2020-02-06 21:42 | NUR ---
LATE ENTRY: 1914H - INTUBATED AND SEDATED. ON FENTANYL DRIP AT 0.5MCG/KG/HR (3ML/HR), VERSED 1MG/HR (2ML/HR). LEVOPHED DRIP AT 7 MCG/MIN (26.25ML/HR). DIALYSIS ONGOING. HOB ELEVATED 30 DEG. OGT FEEDING AT 30ML/HR, GASTRIC RESIDUAL 10ML, REPLACED. SKY CATH DRAINING SMALL AMOUNT OF [place] COLORED URINE. VENT SETTINGS AT AC MODE, TV 450, FIO2 40%, RATE 18, PEEP 10. ACTUAL TV 450ML, RATE 12. CALL LIGHT WITHIN EASY REACH. ON SOFT BILATERAL WRIST RESTRAINTS.
--- NOTE | 2020-02-06 22:00 | NUR ---
LATE ENTRY: - DIALYSIS NURSE REPORTED NET OUTPUT OF 1000ML, BP IS 110/76, HR 80, O2 SAT 96%, RR 12 ON VENT.
--- NOTE | 2020-02-06 22:26 | NUR ---
BP 111/79, MAP 94. REDUCED LEVOPHED FROM 7 MCG/MIN TO 6 MCG/MIN (22.5ML/HR).
[2020-02-07] VITALS (16 sets, daily range): BP systolic 117–138; BP diastolic 68–83
--- NOTE | 2020-02-07 00:46 | NUR ---
LATE ENTRY: 0000H - REMAINS INTUBATED AT SAME SETTINGS AND SEDATED. VERSED DRIP AT 1MG/HR (2ML/HR), FENTANYL DRIP AT 0.5MCG/KG/HR (3ML/HR). LEVOPHED AT 6 MCG/MIN (22.25ML/HR). O2 SAT 96%, RR 14/MIN. BED BATH ADMINISTERED ASSISTED BY MERARY GONZALEZ. REMOVED DRESSINGS FROM RIGHT BUTTOCK AND RIGHT LOWER EXTREMITY. PHOTODOCUMENTATION DONE. NEW DRESSINGS APPLIED. ORAL CARE DONE. PT OPENED EYES ORAL CARE AND BED BATH ADMINISTERED. ATTEMPTED TO PULL TUBES WHEN RELEASED FROM SOFT BILATERAL WRIST RESTRAINTS. HOB KEPT ELEVATED 30 DEG. GOWN AND LINENS CHANGED.
--- NOTE | 2020-02-07 01:44 | NUR ---
BP 120/81, MAP 94, REDUCED LEVOPHED RATE TO 4 MCG/MIN (15ML/HR)
--- NOTE | 2020-02-07 02:06 | NUR ---
NEW FEEDING TUBE AND VITAL 1.2 BOTTLE PLACED AND REGULATED VIA FEEDING PUMP. FEEDING RATE VIA OGT REMAINS AT 30ML/HR.
--- NOTE | 2020-02-07 02:22 | NUR ---
BP 110/74 (MAP 86). CONTINUING LEVOPHED DRIP AT 4 MCG/MIN
--- NOTE | 2020-02-07 03:54 | NUR ---
CONTINUES TO BE INTUBATED AND VENT AT SAME SETTINGS. SEDATED WITH VERSED AT 1MG/HR (2ML/HR), FENTANYL DRIP AT 0.5MG/KG/HR (3ML/HR). LEVOPHED DRIP AT 4 MCG/MIN (15ML/HR). BP AT THIS TIME IS 121/79. SINUS RHYTHM ON THE MONITOR. HOB KEPT ELEVATED 30 DEG. ON SOFT BILATERAL WRIST RESTRAINTS.
--- NOTE | 2020-02-07 04:05 | NUR ---
DECREASED PEEP FROM 10 TO 7. WILL CONTINUE TO MONITOR.
--- NOTE | 2020-02-07 04:30 | NUR ---
RESP THERAPIST STATED SHE WILL REDUCED PEEP TO 7
--- NOTE | 2020-02-07 04:37 | NUR ---
BP 144/87, HR 87. REDUCED LEVOPHED RATE TO 2 MCG/MIN (7.5ML/HR). CN LISA AWARE
[2020-02-07 06:10] LABS: PLATELET COUNT 344 x10^3mcL (130-400)
--- NOTE | 2020-02-07 06:35 | NUR ---
VENTED PEEP AT 7, FIO2 40%, O2 SAT 94%, RR 21/MIN, BP 115/76, HR 88 SINUS IN RHYTHM. STILL ON VERSED DRIP, FENTANYL DRIP AND LEVOPHED DRIP. ALL PORTS TO CENTRAL FLUSHED WELL WITH NS 5ML EACH. HOB KEPT ELEVATED 30 DEG. TURNED AND REPOSITIONED Q 2 HRS. ON VITAL 1.2 AT 30ML/HR. KEPT ON DROPLET/CONTACT ISOLATION. ON SOFT BILATERAL WRIST RESTRAINTS. SALINE LOCK TO RIGHT AC, FREE FROM REDNESS OR SWELLING. PT WOULD AT TIMES OPEN EYES WHEN TURNED AND REPOSITIONED.
[2020-02-07 06:44] LABS: RED CELL DISTRIBUTION WIDTH 22.2 % (11.5-14.5)
[2020-02-07 06:45] LABS: BASOPHIL % 0 % (0-2)
--- NOTE | 2020-02-07 06:47 | NUR ---
LAB CALLED, WBC 19. URINE OUTPUT 50ML WHOLE SHIFT. INFORMED DR. LANGSTON.
[2020-02-07 07:03] LABS: C REACTIVE PROTEIN 10.8 mg/dL (<=0.9); CALCIUM 7.2 mg/dL (8.5-10.1); CARBON DIOXIDE 18.1 mmol/L (21-32); MAGNESIUM 1.9 mg/dL (1.8-2.4); POTASSIUM SERUM 4.1 mmol/L (3.5-5.1)
[2020-02-07 07:04] LABS: CREATININE SERUM 4.3 mg/dL (0.6-1.0)
--- NOTE | 2020-02-07 07:22 | NUR ---
IN NO ACUTE DISTRESS. BP 140/78, HR 91, O2 SAT 92%. ENDORSED TO NURSE ALEJANDRO CHURCH
--- NOTE | 2020-02-07 09:16 | NUR ---
DR MCDERMOTT TO BEDSIDE TO DISCUSS PT POC. UPDATED ON PTS CURRENT STATUS. QUESTIONS ANSWERED. PER , ATTEMPT SEDATION VACATION TODAY. CPAP 8/5 FOR 2 HOURS. RT ALEAH AWARE. ORDERS TO BE CARRIED OUT
--- NOTE | 2020-02-07 10:17 | NUR ---
RT PRESENT AT BEDSIDE. PT TRANSITIONED TO CPAP 03/15 AT THIS TIME. PRIMARY RN NOTIFIED AND MADE AWARE. SEDATION RUNNING AT FENT[place] 0.25MCG/KG/HR AND VERSED 0.5 MG/HR. PT AWAKE AT THIS TIME. WILL CONT TO MONITOR
--- NOTE | 2020-02-07 13:25 | NUR ---
PT TRANSITIONED BACK TO FULL SUPPORT ON VENTILATOR. VITALS STABLE, SEDATION INCREASED TO F[place] 0.5MCG/KG/HR AND VERSED 1MG/HR. WILL CONT TO MONITOR
--- NOTE | 2020-02-07 13:40 | NUR ---
DIALYSIS NURSE AT BEDSIDE.
--- NOTE | 2020-02-07 15:57 | NUR ---
Follow-up Nutrition Assessment: ICU2 ROCHELLE FRIEDMAN 49F MR Dx: Sepsis hyperkalemia, Renal failure PMHx: DM, GERD, HTN, Dyslipidemia Labs: (02/06) Na 135L, BG 212H, BUN 70H, Cr 4.3H, WBC 19H, H/H 10.3/31L Meds: Aspirin, Colace, Decadron, Ferrlecit, Flomax, Lasix, lovephed, Lipitor, Lopressor, Norvasc, Procrit, Sublimaze, Vancomycin, Versed PRN meds: Apresolin, Benadryl, D50%, Humulin, Hydralazine, miralax, Normodyne, Tylenol, Ventolin, Zofran Diet: vital 1.2 at 30ml/hr fwf 100ml Q4H via OGT TF Infused: (02/06)1253ml Weights: (02/06) 74.3kg/163.5lbs, (01/26)60kg/132lbs; Bed scale: 79.2kg/174lbs (01/17) 60kg/132lbs (01/12) bedscale: 65kg/145lbs *wt change may d/t wound vac hanging off the bed Edema: +1 edema to BUE Last BM: 02/06 Skin: Dressings to right lower extremity and right buttocks Michael: 13 I/Os: (02/06) 3618/1500ml = 2118ml, (02/05) 867/500ml = 367ml, (02/04) 410/500ml = -90ml, (02/03) 810/1050ml = -240ml, (02/02) 620/950ml = -330ml. Per last RD Note (01/31), Per pt's primary RN, pt did not exhibit any GI distress today. Pt was transferred in to an isolation room. Per progress note (01/31), right hip wound was not improving, pending placement for higher level of care, and surgeon recommended for flap surgery. Pt had average 67% PO intake since last visit. Current diet provided 984.23kcal and 52g protein meeting 55% of estimated kcal needs and 58% of estimated protein needs. RD Note (02/06): Pt was seen lying in bed, on vent, with no s/s of distress. Per pt's primary RN, pt's tube feeding was in fusing at goal rate, and pt was tolerating with GRV=0ml. At goal rate, pt's tube feeding will provide 720ml, 864kcal, 54g protein and 1184ml free water (600ml free water). It will meet 62% of estimated kcal needs and 64% of estimated protein needs. Additionally, RN also denied GI distress. At the time of visit, pt was having a HD session. Per progress note (02/06), pt received convalescent plasma, and pt was on levophed, fentasnyl and versed drip; central line and moiz catheter placed yesterday. Estimated Nutritional Needs Based on adjusted body weight (56kg) Minute ventilation: 10.5 Tmax: 36.7 Energy: 840-1400 vs. 1501 kcal/day (15-25 kcal/kg vs. PSU 2003b for COVID+, vent dependence) Protein: 67-112 g/day (1.2-2 g/kg for vent dependence, ESRD on HD, and wound healing) Fluid: 8542-4359 ml/day (20-25 ml/kg for COVID +, edema, on multiple diuretics) or per MD Nutrition Diagnosis: (ongoing) 1. Increased energy and protein needs r/t hypermetabolic state and skin integrity a/e/b pt has sepsis and pressure ulcer to buttocks. (resolved; on tube feeding) 2. Masticatory difficulty r/t loose teeth a/e/b pt reported having 3 loose teeth and prefers mechanical soft diet and soup. (ongoing, modified) 3. Impaired nutrition utilization r/t endocrine dysfunction a/e/b PMHx of DM, and elevated glucose 212 on 02/06. Intervention: 1. Recommend vital 1.2 at 45 ml/hr. It will provide a volume of 1080ml, 1296kcal, 81g protein and 871 ml free water meeting 100% of estimated kcal (86% PSU) and protein needs. 2. Recommend free water flush 50ml Q4H for additional 300ml and a grand total 1171ml free water. Paged TIN WHIZ MACHINE OPERATOR. Lencho, waiting for response. Monitor/Evaluate: Goal: Have pt meet at least 75% of estimated needs via nutrition support Monitor: Nutrition support tolerance, Labs, GI function, Body weight, Skin integrity F/U in 2-3 days as high risk 02/08-
--- NOTE | 2020-02-07 15:57 | NUR ---
1. Recommend vital 1.2 at 45 ml/hr. It will provide a volume of 1080ml, 1296kcal, 81g protein and 871 ml free water meeting 100% of estimated kcal (86% PSU) and protein needs. 2. Recommend free water flush 50ml Q4H for additional 300ml and a grand total 1171ml free water. Paged SUSY. Lencho, waiting for response.
--- NOTE | 2020-02-07 19:10 | NUR ---
RECEIVED REPORT FROM JENARO SPARROW. WILL RESUME CARE.
--- NOTE | 2020-02-07 19:25 | NUR ---
RECEIVED PT INTUBATED AND SEDATED ON FENTANYL AT 0.5MCG/KG/HR AND VERSED AT 7MG/HR, RSS 5. GAG REFLEX NOTED. PUPILS 3MM SLUGGISH. ETT TO VENT VCVA-A/C MODE WITH SETTINGS OF VT 450, R 18, FIO2 60%, PEEP 5. LUNG SOUNDS HAVE CRACKLES TO UPPER LOBES AND DIMINISHED TO BASES. VAP CARE PROVIDED. S1S2 AUSCULTATED. NO S/SX OF CHEST PAIN NOTED. CAP REFILL <3 SEC. +1 PITTING EDEMA TO BUE'S AND BLE'S. PULSES PALPABLE. GENERALIZED WEAKNESS. BILATERAL SOFT WRIST RESTRAINTS IN PLACE FOR PT'S SAFETY. ON TF OF VITAL AF 1.2 AT 30CC/HR WITH FWF OF 100 Q4HRS WITH NO RESIDUAL NOTED. PLACEMENT CHECKED. PT TOLERATING TF WELL. ABDOMEN SOFT, NONTENDER. BS ACTIVE X 4. NO N/V. SKY CATHETER IN PLACE DRAINING VIA GRAVITY YELLOW URINE. DRESSING TO R BUTTOCK AND R SHERYL CDI. BED INN LOW POSITION. CALL LIGHT WITHIN REACH. WILL CONTINUE TO MONITOR.
--- NOTE | 2020-02-07 20:29 | NUR ---
DR. SANTOS AT BEDSIDE ASSESSING PT. UPDATES PROVIDED. NO NEW ORDERS AT THIS TIME.
--- NOTE | 2020-02-07 21:10 | NUR ---
DR. EPPS AT BEDSIDE ASSESSSING PT. UPDATES PROVIEDED.
[2020-02-08] VITALS (13 sets, daily range): BP systolic 118–134; BP diastolic 66–77
--- NOTE | 2020-02-08 04:32 | NUR ---
PATIENT CONTINUE TO DESAT INTO THE 80'S. SUCTIONED AND CHECKED HME. NO ALARMS. INCREASED FIO2 FROM 60% TO 100%. SPO2 INCREASED FROM 84% TO 96%. WILL CONTINUE TO MONITOR.
--- NOTE | 2020-02-08 05:05 | NUR ---
PT HAD LARGE FORMED BM. PT CLEANED. ALL LINENS AND GOWN CHANGED. 450CC OF URINE OUTPUT DURING SHIFT. SKY CATHETER CARE PROVIDED.
[2020-02-08 06:55] LABS: CALCIUM 7.3 mg/dL (8.5-10.1); CARBON DIOXIDE 25.4 mmol/L (21-32); CREATININE SERUM 3.1 mg/dL (0.6-1.0); MAGNESIUM 1.8 mg/dL (1.8-2.4); PHOSPHOROUS 4.2 mg/dL (2.5-4.9); POTASSIUM SERUM 3.5 mmol/L (3.5-5.1)
[2020-02-08 06:59] LABS: C REACTIVE PROTEIN 12.2 mg/dL (<=0.9)
[2020-02-08 07:08] LABS: PLATELET COUNT 210 x10^3mcL (130-400)
[2020-02-08 07:57] LABS: BASOPHIL % 0 % (0-2); RED CELL DISTRIBUTION WIDTH 23.5 % (11.5-14.5)
--- NOTE | 2020-02-08 13:30 | NUR ---
RECEIVED CHANGE OF CARE REPORT FROM VANESA SPARROW. PT IS INTUBATED AND SEDATED ON FENTANYL AT 0.5 MCG/KG/HR AND VERSED 7MG/HR. RSS OF 4. 7.0 ETT INTACT AND SECURED 24CM AT LL. VCV/AC MODE: 100% FIO2, 18 RATE, 450 VT, 5 PEEP. PULSES ARE MODERATE TO BUE AND BLE. HR SHOWING NSR. PT HAS RIGHT BUTTOCKS PRESSURE ULCER AND RIGHT TREVINO ULCER. VITAL 1.2 INFUSING AT 30ML/HR WITH FWF 100ML Q4H. OGT INTACT AND SECURED. RFA PERIPEHRAL IV AND LIJ CVC INTACT, PATENT, DRESSING CDI. LIJ MIRNA INTACT, DRESSING CDI. SKY INTACT AND DRAINING VIA GRAVITY. URINE IS YELOW AND CLEAR. PT ON BILATERAL SOFT WRIST RESTRAINTS. 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 WILL CONTINUE TO MONITOR THE PATIENT
--- NOTE | 2020-02-08 14:00 | NUR ---
DR. DUMAS AT BEDSIDE. GAVE NURSING UPDATE. DR. DUMAS STATES NO DIALYSIS IS INDICATED AT THIS TIME
--- NOTE | 2020-02-08 21:45 | NUR ---
PT HAD LARGE BM FORMED AND BROWN. CLEANED THE PATIENT. CHUCKS CHANGED
--- NOTE | 2020-02-08 22:15 | NUR ---
DR. SANTOS AT BEDSIDE. GAVE NURSING UPDATE.
[2020-02-09] VITALS (12 sets, daily range): BP systolic 100–133; BP diastolic 60–79
--- NOTE | 2020-02-09 05:35 | NUR ---
DR. SCHUMACHER AT BEDSIDE. GAVE NURSING UPDATE
[2020-02-09 05:49] LABS: CALCIUM 8.2 mg/dL (8.5-10.1); CARBON DIOXIDE 27.4 mmol/L (21-32); CREATININE SERUM 3.1 mg/dL (0.6-1.0); MAGNESIUM 1.8 mg/dL (1.8-2.4); PHOSPHOROUS 4.3 mg/dL (2.5-4.9); POTASSIUM SERUM 3.7 mmol/L (3.5-5.1)
[2020-02-09 06:12] LABS: PLATELET COUNT 192 x10^3mcL (130-400); RED CELL DISTRIBUTION WIDTH 22.6 % (11.5-14.5)
[2020-02-09 06:13] LABS: BASOPHIL % 0 % (0-2)
--- NOTE | 2020-02-09 06:55 | NUR ---
RSS OF 5. TITRATED FENTANYL TO 0.5MCG/KG/HR
--- NOTE | 2020-02-09 07:15 | NUR ---
GAVE CHANGE OF SHIFT REPORT TO RENETTA SPARROW. QUESTIONS AND ENDORSED CARE
--- NOTE | 2020-02-09 07:15 | NUR ---
ASSUMED CARE OF PATIENT, PT INTUBATED AND SEDATED ON VERSED 3MG/HR, FENTANYL 0.5 MCG/KG/HR. VENT ON AC MODE TV 450, RATE 18, PEEP 5, FIO2 100%. VS 66, 113/74 (87), 12, 93%. SKY DRAINING SMALL AMOUNT OF [place] URINE TO GRAVITY. OGT FEEDING VITAL 1.2 AT GOAL OF 30 ML/HR WITH 100 ML FWF Q4HR. NO ACUTE DISTRESS NOTED AT THIS TIME, WILL CONTINUE TO MONITOR.
--- NOTE | 2020-02-09 09:49 | NUR ---
HD NURSE ON UNIT FOR DIALYSIS AT THIS TIME.
--- NOTE | 2020-02-09 10:44 | NUR ---
LEVOPHED STARTED AT THIS TIME FOR BP 74/49 (54) RESULT OF DIALYSIS. WILL MONITOR FOR PATIENT RESPONSE.
--- NOTE | 2020-02-09 13:00 | NUR ---
DIALYSIS COMPLETE AT THIS TIME WITH 2L OUT. LEVOPHED OFF AT THIS TIME. WILL MONITOR FOR PATIENT RESPONSE.
--- NOTE | 2020-02-09 13:08 | NUR ---
NIBP 148/83, MAP 96. LEVOPHED DRIP TITRATED OFF AT THIS TIME. WILL CONTINUE TO MONITOR.
--- NOTE | 2020-02-09 19:11 | NUR ---
SBAR REPORT GIVEN TO ANDREWS STEVEN. ALL UPDATES GIVEN.
--- NOTE | 2020-02-09 19:35 | NUR ---
RECEIVED CHANGE OF SHIFT REPORT AT 1909. PT IS SEDATED AND INTUBATED WITH VERSED AT 3MG/HR AND FENTANYL AT 0.5 MCG/KG/HR. RSS OF 4. PT RESPONDS TO TACTILE STIMULI. 7.0 ETT INTACT AND SECURED, 24CM AT LL. VCV/AC MODE: 100% FIO2, 450 VT, PEEP 5, RATE 18. PULSES ARE MODERATE TO BUE AND BLE. +2 BUE AND BLE EDEMA. RIGHT BUTT ULCER AND RLE TREVINO ULCER. VITAL 1.2 INFUSING AT 30ML/HR WITH FWF 100ML Q4H THROUGH OGT. OGT INTACT AND SECURED. RFA PERIPHERAL IV AND LIJ CVC INTACT, PATENT, DRESSING CDI. RIJ MIRNA CATH INTACT, DRESSING CDI. SKY INTACT AND DRAINING VIA GRAVITY. PT ON BILATERAL SOFT WRIST RESTRAINTS.
[2020-02-10] VITALS (14 sets, daily range): BP systolic 107–143; BP diastolic 61–83
--- NOTE | 2020-02-10 04:39 | NUR ---
HR: 115. PT RESTLESS. TITRATED FENTANYL TO 1.5MCG/KG/HR
[2020-02-10 06:15] LABS: CALCIUM 7.7 mg/dL (8.5-10.1); CARBON DIOXIDE 25.1 mmol/L (21-32); CREATININE SERUM 2.4 mg/dL (0.6-1.0); MAGNESIUM 1.7 mg/dL (1.8-2.4); PHOSPHOROUS 3.3 mg/dL (2.5-4.9); POTASSIUM SERUM 3.7 mmol/L (3.5-5.1)
[2020-02-10 06:18] LABS: BASOPHIL % 0 % (0-2); PLATELET COUNT 134 x10^3mcL (130-400); RED CELL DISTRIBUTION WIDTH 23.1 % (11.5-14.5)
--- NOTE | 2020-02-10 07:00 | NUR ---
ASSUMED CARE OF PATIENT, PT INTUBATED AND SEDATED ON VERSED 3MG/HR, FENTANYL 1.5 MCG/KG/HR. VS 113, 134/73 (83), 20, 88% ON VENT AC MODE TV 450, RATE 16, PEEP 5, FIO2 100%. OGT FEEDING VITAL 1.2 AT GOAL OF 30ML/HR WITH 100ML FWF Q4H. SKY DRAINING FAIR AMOUNT OF YELLOW URINE TO GRAVITY. NO ACUTE DISTRESS NOTED AT THIS TIME, WILL CONTINUE TO MONITOR.
--- NOTE | 2020-02-10 07:05 | NUR ---
AVE CHANGE OF SHIFT REPORT TO RENETTA SPARROW. QUESTIONS AND ENDORSED CARE
--- NOTE | 2020-02-10 16:11 | NUR ---
Follow-up Nutrition Assessment: ICU2 ROCHELLE FRIEDMAN 49F MR Dx: Sepsis hyperkalemia, Renal failure PMHx: DM, GERD, HTN, Dyslipidemia Labs: (02/09) BG 178H, BUN 44H, Cr 2.4H, WBC 17.7H, H/H 9.4/29L Meds: Aspirin, Colace, Decadron, ferrlecit, Flomax, Lasix, levophed, Lipitor, Procrit, Protonix, Sublimaze, Vancomycin PRN meds: Apresoline, Bendadryl, D50%, Humulin, Hydralazine, miralax, normodyne, Tylenol, Ventolin, Versed, Zofran Diet: vital 1.2 at 30ml/hr fwf 100ml Q4H via OGT TF infused: (02/09) 639ml, (02/08) 578ml, (02/07) 740ml, (02/06) 1253ml Weights: (02/09)73.8kg/162.36lbs, (02/06) 74.3kg/163.5lbs, (01/26)60kg/132lbs; Bed scale: 79.2kg/174lbs Edema: +1 edema to BUE Last BM: 1x form BM on 02/08 per RN. Skin: dressing to buttocks Michael: 13 I/Os: (02/09)1732/2675ml = -943ml, (02/08)1350/1325ml = 25ml, (02/07)2204/2150ml = 54ml Per last RD Note (02/06), Pt was seen lying in bed, on vent, with no s/s of distress. Per pt's primary RN, pt's tube feeding was in fusing at goal rate, and pt was tolerating with GRV=0ml. At goal rate, pt's tube feeding will provide 720ml, 864kcal, 54g protein and 1184ml free water (600ml free water). It will meet 62% of estimated kcal needs and 64% of estimated protein needs. Additionally, RN also denied GI distress. At the time of visit, pt was having a HD session. Per progress note (02/06), pt received convalescent plasma, and pt was on levophed, fentasnyl and versed drip; central line and moiz catheter placed yesterday. RD Note (02/09): Pt was seen ETT to vent, lying in bed with no s/s of distress. Per pt's primary RN, pt had GRV=10ml today and tube feeding was infusing at goal 30 ml/hr. Additionally, RN also reported no GI distress today, and pt had a form BM on 02/08. Estimated Nutritional Needs Based on adjusted body weight (56kg) Minute ventilation: 10.1 Tmax: 37.8 Energy: 4721-5767 vs. 1663 kcal/day (25-30 kcal/kg vs. PSU 2002b for COVID+, vent dependence) Protein: 67-112 g/day (1.2-2 g/kg for vent dependence, ESRD on HD, and wound healing) Fluid: 5608-0924 ml/day (20-25 ml/kg for COVID +, edema, on multiple diuretics) or per MD Nutrition Diagnosis: (ongoing) 1. Increased energy and protein needs r/t hypermetabolic state and skin integrity a/e/b pt has sepsis and pressure ulcer to buttocks. (resolved; on tube feeding) 2. Masticatory difficulty r/t loose teeth a/e/b pt reported having 3 loose teeth and prefers mechanical soft diet and soup. (ongoing, modified) 3. Impaired nutrition utilization r/t endocrine dysfunction a/e/b PMHx of DM, and elevated glucose 212 on 02/06. (new) 4. Inadequate energy and protein intake r/t insufficient tube feeding infusion a/e/b pt current regimen meeting 62% of estimated kcal needs and 64% of estimated protein needs. Intervention: 1. Recommend vital 1.2 at 50 ml/hr. It will provide a volume of 1200ml, 1440kcal, 90g protein and 973ml free water meeting 100% of estimated kcal (87% PSU) and protein needs. 2. Recommend free water flush 50ml Q4H for additional 300ml and a grand total 1171ml free water. Provided recommendation to Dr. Craft, and Dr. Craft acknowledged. Monitor/Evaluate: Goal: Have pt meet at least 80% of estimated needs via nutrition support (not met, ongoing goal) Monitor: Nutrition support tolerance, Labs, GI function, Body weight F/U in 2-3 days as high risk 02/11-
--- NOTE | 2020-02-10 19:04 | NUR ---
REPORT GIVEN TO MAURIZIO, ALL UPDATES GIVEN AND QUESTIONS ANSWERED.
--- NOTE | 2020-02-10 19:30 | NUR ---
RECEIVED CHANGE OF SHIFT REPORT FROM RENETTA AT 1905. PT IS INTUBATED AND SEDATED ON FENTANYL AT 1.5MCG/KG/HR AND VERSED AT 3MG/HR. RSS OF 4. PT RESPONDS TO TACTILE STIMULI. 7.0 ETT INTACT AND SECURED, 24 CM AT LL. VCV/AC MODE: 450 VT, 100 FIO2, 10 PEEP, 16 RATE. PULSES ARE MODERATE TO BUE AND BLE. +1 EDEMA NOTED TO BUE AND BLE. RIGHT BUTT AND RIGHT TREVINO ULCER. VITAL 1.2 INFUSING AT 50ML/HR WITH 50ML FWF Q4H. SKY INTACT AND DRAINING VIA GRAVITY. PT ON BILATERAL SOFT WRIST RESTRAINTS. PT ON CONTINUOUS MOBILE LAB TECHNICIAN SHOWING NSR. WILL CONTINUE TO MONITOR THE PATIENT
[2020-02-11] VITALS (14 sets, daily range): BP systolic 88–154; BP diastolic 57–84
--- NOTE | 2020-02-11 02:30 | NUR ---
PT IS RESTING WELL. NO S/SX OF DISTRESS.
[2020-02-11 06:06] LABS: CALCIUM 7.1 mg/dL (8.5-10.1); CARBON DIOXIDE 25.3 mmol/L (21-32); CREATININE SERUM 2.4 mg/dL (0.6-1.0); MAGNESIUM 1.5 mg/dL (1.8-2.4); POTASSIUM SERUM 3.4 mmol/L (3.5-5.1)
--- NOTE | 2020-02-11 06:48 | NUR ---
CALLED DR. LANGSTON TO UPDATE REGARDING LAB RESULT. DR. LANGSTON STATES THAT SHE WILL TAKE A LOOK
--- NOTE | 2020-02-11 06:56 | NUR ---
X-RAY TECH AT BEDSIDE TAKING X-RAY
[2020-02-11 07:00] LABS: PLATELET COUNT 119 x10^3mcL (130-400); RED CELL DISTRIBUTION WIDTH 23.4 % (11.5-14.5)
--- NOTE | 2020-02-11 07:07 | NUR ---
GAVE NURSING REPORT TO TERI SPARROW. QUESTIONS AND ENDORSED CARE
--- NOTE | 2020-02-11 08:34 | NUR ---
AT 0800 - RECEIVED PATIENT FROM NIGHT NURSE. PATIENT IS SEDATED ON VERSED AT 3 MG/HR AND FENTANYL AT 1.5 MCH/KG/HR. INTUBATED TO AC MODE ON FIO2 AT 100%. O2 SAT 94%; RR 16. VT 450. PEEP 10. ORAL GASTRIC TUBE TO CONTINUOUS TUBE FEEDING OF VITAL AT 50 ML/HR. RESIDUAL 50ML. SKY CATHETER DRAINING MADISON URINE WITH SEDIMENTS. AT 0835 - FIO2 REDUCED TO 90% BY RT. AT 0845 - O2 SAT 90-91% AT THIS TIME.
--- NOTE | 2020-02-11 11:07 | NUR ---
SEEN BY DR THAYER AND MEDICAL TEAM DOCTORS. NO CHANGE IN ORDERS AT THIS TIME.
--- NOTE | 2020-02-11 11:50 | NUR ---
SEEN BY DR DAVENPORT (NEPHROLOGY). NO DIALYSIS TODAY. CREATENINE STABLE. CONTINUING TO MONITOR. O2 SAT DROPPED TO 87-88%. CALLED RT TO CHECK PATIENT'S RESP STATUS. REMAINS ON SAME VENT SETTINGS.
[2020-02-11 14:12] LABS: BAND NEUTROPHIL 25 % (0-10); MONOCYTE 3 % (0-7); PLATELET MORPHOLOGY LARGE PLATELET SEEN; SEGMENTED NEUTROPHILS 67 % (37-75)
[2020-02-11 14:18] LABS: burr cell (echinocyte) 1+; rbc morphology (normal/abnorm) ABNORMAL (NORMAL); schistocyte (helmet cell) 1+
--- NOTE | 2020-02-11 14:31 | NUR ---
RECEIVED CALL FROM CHARLA'S DAUGHTER SHAHID. UPDATED ON PATIENT CONDITION.
--- NOTE | 2020-02-11 15:16 | NUR ---
SEEN BY DR ALCANTARA. PATIENT TO PRONE PRONE FOR 16 HRS. INCREASE PEEP TO 12. RT HAS BEEN CALLED.
--- NOTE | 2020-02-11 18:50 | NUR ---
AT 1740 - ATTEMPTED TO PRONE PATIENT. UNABLE TO TOLERATE. O2 SATS DROPPED TO 50%. PATIENT REPOSITIONED ON R SIDE. O2 SAT RETURNED TO 91-94%. PATIENT HAD ANOTHER LIQUID BOWEL MOVEMENT. RECTAL TUBE - FLEXISEAL INSERTED BY CHARGE NURSE. AT 1845 - PATIENT REMAINS SEDATED ON FENTANYL 3 MCG AND VERSED AT 1.5 MG. IV NOW INFUSING TODAY'S DOSE OF FERRLICIT. HAS RECEIVED VANCOMYCIN. VSS ASTABLE. AFEBRILE. SINUS RHYTHM. TUBE FEEDING REMAINS AT 50 ML/HR WILL ENDORSE CARE TO NIGHT NURSE.
[2020-02-12] VITALS (14 sets, daily range): BP systolic 90–139; BP diastolic 49–72
--- NOTE | 2020-02-12 03:26 | NUR ---
2200 PT WAS MOVED FROM BED 2 TO BED 4. SHE IS SEDATED ON FENTANYL AND VERSED AND DID NOT RESPOND TO THE MOVE. SHE HAS BEEN BATHE WITH THEREADY LUXE CLEANING CLOTHS AND SHE HAS A FLEXISEAL IN PLACE R/T TO THE LIQUID STOOL, SHE VERY LITTLE URINE OUT IN HER SKY < 100 CC'S. sHE REMAINS ON THE VENTILATOR And her fio2 was increased to 100% from 90 because her o2 sat dropped into the 80's. she is quiet and resting comfortably with the current sedtion medication.
--- NOTE | 2020-02-12 03:54 | NUR ---
PT'S BLOODPRESSURE DROPPED TO THE LOW 80'S AND LEVOPJHED WAS RESTARTED @2mcg/min.
[2020-02-12 07:09] LABS: BASOPHIL % 0 % (0-2); PLATELET COUNT 104 x10^3mcL (130-400); RED CELL DISTRIBUTION WIDTH 23.5 % (11.5-14.5)
--- NOTE | 2020-02-12 07:30 | NUR ---
RECEIVED PT FROM LEAVING NURSE. PT IS SEDATED ON VERSED 1.5MG/H, FENTANYL 3MCG/KG/H, LEVOPHED IS OFF. PT IS ON VENT AC MODE: FIO2 100%, RR 16, PEEP 12, VT 450. O2 SAT 89-91% AT THIS TIME. SKY IN PLACE, DRAINING VIA GRAVITY, SMALL AMOUNT MADISON URINE. RIJ MIRNA CATH FOR HD. PT IS SCHEDULED FOR HD TODAY. FLEXI SEAL RECTAL TUBE IN PLACE, PASTY STOOL. LIJ CENTRAL LINE, PATENT, INTACT. WILL CONTINUE PT CARE.
[2020-02-12 07:33] LABS: CALCIUM 7.7 mg/dL (8.5-10.1); CARBON DIOXIDE 21.1 mmol/L (21-32); CREATININE SERUM 3.1 mg/dL (0.6-1.0); MAGNESIUM 2.2 mg/dL (1.8-2.4); PHOSPHOROUS 4.2 mg/dL (2.5-4.9); POTASSIUM SERUM 4.7 mmol/L (3.5-5.1)
--- NOTE | 2020-02-12 08:13 | NUR ---
DR. MILLER ASSESSED PT, PT'S UPDATED STATUS GIVEN.
--- NOTE | 2020-02-12 16:45 | NUR ---
HD NURSE STARTED HD BEDSIDE. PT'S BP TRENDING DOWN 80/52, RESTARTED LEVOPHED FOR BP SUPPORT.
--- NOTE | 2020-02-12 19:13 | NUR ---
ENDOSE PT'S CARE TO RECEIVING NURSE. DIALYSIS WILL BE DONE IN 30MIN. 2L REMOVED. ENDOSE RECEIVING NURSE TO GIVE EPOIGEN AFTER HD.
[2020-02-13] VITALS (15 sets, daily range): BP systolic 88–146; BP diastolic 54–88
--- NOTE | 2020-02-13 01:30 | NUR ---
RECEIVED PT S/P DIALYSIS TREATMENT,. HER EPOGEN WAS GIVEN PER ORDER . SHE HAD A REPORTED 1 LITER REMOVED. SHE REMAINS SEDATED ON THE VENTILATOR AND TUBE FEEDING AT 50CC/HOUR. SHE HAS A SKY TBUT PRODUCES VERY LITTLE URINE. PT CONTINUES ON VERSED AND FENTANYL, AND HER LEVOPHED HAD TO BE TURNED BACK ON SHE DROPPED TO DIASTOLIC 0F 62 AND A MAP OF 55. HOWEVER, HER BLOOD PRESSURE [id number] LEVOPHED REDUCED TO 10MCG/HOUR..
[2020-02-13 06:38] LABS: BILIRUBIN TOTAL 0.22 mg/dL (0.20-1.00); CALCIUM 7.9 mg/dL (8.5-10.1); CARBON DIOXIDE 23.8 mmol/L (21-32); CREATININE SERUM 2.7 mg/dL (0.6-1.0); MAGNESIUM 2.1 mg/dL (1.8-2.4); PHOSPHOROUS 3.8 mg/dL (2.5-4.9); POTASSIUM SERUM 4.4 mmol/L (3.5-5.1)
[2020-02-13 06:43] LABS: TOTAL PROTEIN, SERUM 4.8 g/dL (6.4-8.2)
[2020-02-13 07:06] LABS: PLATELET COUNT 113 x10^3mcL (130-400); RED CELL DISTRIBUTION WIDTH 24.1 % (11.5-14.5)
--- NOTE | 2020-02-13 07:07 | NUR ---
LAB CALLED WITH CRITICAL WBC AND HEIDI REPORTED TH E FINDINGS TO THE MD.
--- NOTE | 2020-02-13 07:09 | NUR ---
NEEL CALLED WITH CRITICAL WBC REPORT AND HEIDI REPORTED THE FINDINGS TO THE MD./
[2020-02-13 07:22] LABS: C REACTIVE PROTEIN 24.6 mg/dL (<=0.9)
--- NOTE | 2020-02-13 07:30 | NUR ---
RECEIVING PT'S REPORT FROM LEAVING NURSE. PT'S BP IS 71/43. LEVOPHED IS AT 8 MCG/MIN. LIJ CENTRAL LINE BLOOD BACK FLOW IN IV LINE. ONE PORT IS CLOT, NOT WORKING. SWITCHED LEVOPHED LINE TO MIRNA CATH EXTRA PORT. PT IS ON VENT AC MODE: FIO2 90%, RR 16, PEEP 12, VT 450. O2 SAT AROUND 93%. TUBE FEEDING AT 50ML/HR WFW 50ML. SMALL AMOUNT MADISON CLOUDY URINE NOTED IN SKY CATHETER. FLEXISEAL TUBE IN PLACE, PASTY STOOL. WILL CONTINUE PT'S CARE.
--- NOTE | 2020-02-13 09:59 | NUR ---
PT'S BP 129/70, HR 89, O2 SAT 97%, TITRATE DOWN LEVOPHED FROM 6MCG/MIN TO 4MCG/MIN.
--- NOTE | 2020-02-13 11:04 | NUR ---
DR. THAYER LEADING MORNING MEDICAL TEAM MADE ROUND. PT'S STATUS UPDATED. MADE DR. THAYER AWARE ABOUT PT'S SODIUM 132.
--- NOTE | 2020-02-13 12:02 | NUR ---
PT'S BP 127/82 (92), HR 107, O2 SAT 94%. STOP LEVOPHED AT THIS TIME. PT IS WAKING UP, ATTEMPING TO OPEN EYES. BODY WITHDRAWN TO TACTITLE STIMULI, BUT NOT FOLLOW COMMAND AT THIS TIME. WILL COTNINUE TO MONITOR.
--- NOTE | 2020-02-13 12:37 | NUR ---
PT'S BP 84/50, HR 86, RESUME LEVOPHED AT 4MCG/MIN. WILL COTINUE TO MONITOR.
--- NOTE | 2020-02-13 14:09 | NUR ---
DR. CHU ASSESSED PT BEDSIDE. RT NACY ADJUSTED VENT SETTING: FIO2 70%, PEEP FROM 12 DOWN TO 10 PER ORDER. PT'S O2 SAT 97%. WILL CONTINUE TO MONITOR.
[2020-02-13 14:51] LABS: SEGMENTED NEUTROPHILS 94 % (37-75); rbc morphology (normal/abnorm) NORMAL (NORMAL)
--- NOTE | 2020-02-13 17:58 | NUR ---
PT IS VERY SENSITIVE TO LEVOPHED TITRATING DOSE. GRADUALLY TITRATING DOWN LEVOPHED AGAIN. PT BP 154/80, LEVOPHED DOWN TO 0.5MCG/MIN BY THIS TIME. PT'S VENT SETTING IS AT FIO2 80%, PEEP 10, RR 16, VT 450. O2 SAT 89-91%. URINE OUTPUT 100ML. STOOL 250ML. PT IS SCHEDULED FOR HD 02/13. WILL ENDOSE PT'S CARE TO ONCOMING NURSE.
--- NOTE | 2020-02-13 18:42 | NUR ---
PT IS DESATING TO 86%. RT LIANA ADJUST VENT SETTING : FIO2 100%, VT 450, PEEP 12, RR 16. PT'S O2 SAT BACK 98%.
--- NOTE | 2020-02-13 18:44 | NUR ---
PT DESATING NOT TOLERATING TITRATION PEEP WAS INCREASED TO 12 AND FIO2 INCREASED TO 100%
--- NOTE | 2020-02-13 19:05 | NUR ---
RECIEVED REPORT FROM ANDREWS DE LA TORRE. NURSING UPDATES. POC DISCUSSED. SEE SHIFT ASSESSMENT.
--- NOTE | 2020-02-13 21:00 | NUR ---
NO ACUTE CHANGES. WILL CONT TO MONITOR.
[2020-02-14] VITALS (17 sets, daily range): BP systolic 93–138; BP diastolic 48–82
--- NOTE | 2020-02-14 | NUR ---
DR SANTOS @ BEDSIDE. NURSING UPDATES. POC DISCUSSED. NO NEW ORDERS @ THIS TIME.
--- NOTE | 2020-02-14 02:31 | NUR ---
NO ACUTE CHANGES. WILL CONT TO MONITOR.
--- NOTE | 2020-02-14 05:23 | NUR ---
TITRATED LEVO OFF PER PT MAP WNL > 65. TITRATED VERSED OFF PER PT TOLERATING W/ NO S/S OF DISTRESS. WILL CONT TO MONITOR.
--- NOTE | 2020-02-14 05:42 | NUR ---
NOTIFIED PER RT. PEEP DECREASED FROM 12 TO 8. PT TOLERATING WELL O2 SAT 99%. WILL CONT TO MONITOR.
[2020-02-14 06:14] LABS: BILIRUBIN TOTAL 0.2 mg/dL (0.20-1.00); CALCIUM 7.8 mg/dL (8.5-10.1); CARBON DIOXIDE 24.5 mmol/L (21-32); CREATININE SERUM 3.2 mg/dL (0.6-1.0); MAGNESIUM 2.1 mg/dL (1.8-2.4); PHOSPHOROUS 4.3 mg/dL (2.5-4.9); POTASSIUM SERUM 4.5 mmol/L (3.5-5.1)
[2020-02-14 06:15] LABS: ALBUMIN 1.1 g/dL (3.4-5.0); C REACTIVE PROTEIN 12.6 mg/dL (<=0.9); TOTAL PROTEIN, SERUM 4.7 g/dL (6.4-8.2)
[2020-02-14 06:29] LABS: PLATELET COUNT 92 x10^3mcL (130-400); RED CELL DISTRIBUTION WIDTH 24.7 % (11.5-14.5)
--- NOTE | 2020-02-14 07:10 | NUR ---
ASSUMED CARE OF PATIENT PT RESTING WITH EYES CLOSED, VS 80, 123/75 (90), 15, 97% ON VENT AC MODE TV 450PEEP 8, RATE 16, FIO2 100%. OGT FEEDING AT GOAL OF 50ML/HR WITH 100ML FWF Q4HR, SKY DRAINING SMALL AMOUNT OF YELLOW URINE TO GRAVITY, FLEXISEAL IN PLACE. FENTANYL DRIP AT 3 MCG/KG/HR. NO ACUTE DISTRESS NOTED AT THIS TIME, WILL CONTINUE TO MONITOR.
--- NOTE | 2020-02-14 09:53 | NUR ---
LEVOPHED STARTED TO DIALYSIS AT 5 MCG/HR. WILL MONITOR FOR PATIENT RESPONSE.
--- NOTE | 2020-02-14 11:32 | NUR ---
PT BP 74/54 (58) LEVOPHED INCREASED TO 7 MCG/HR AT THIS TIME. WILL MONITOR FOR PATIENT RESPONSE.
[2020-02-14 12:18] LABS: BAND NEUTROPHIL 5 % (0-10); SEGMENTED NEUTROPHILS 88 % (37-75); rbc morphology (normal/abnorm) ABNORMAL (NORMAL)
--- NOTE | 2020-02-14 12:46 | NUR ---
DIALYSIS COMPLETE AT THIS TIME. 2L OUTPUT. LEVOPHED OFF AT THIS TIME, WILL MONITOR FOR PATIENT RESPONSE.
--- NOTE | 2020-02-14 16:14 | NUR ---
Follow-up Nutrition Assessment: ICU4 ROCHELLE FRIEDMAN 49F MR Dx: Sepsis hyperkalemia, Renal failure PMHx: DM, GERD, HTN, Dyslipidemia Labs: (02/13) Na 132L, Cl 97L, BG 401H, BUN 76H, Cr 3.2H, WBC 25.2H, H/H 8.7/27L, CRP 12.6H, (02/10) Trig 278H Meds: Aspirin, Colace, Decadron, Ferrlecit, lantus, Lasix, Levophed, Merrem, Procrit, protonix, sublimaze, Vancomycin, Versed PRN meds: Benadryl, D50%, Humulin, Ventolin Diet: vital 1.2 at 50ml fwf 50ml Q4H via OGT Tube feed infused: (02/13)1090ml, (02/12) 650ml, (02/11) 650ml, (02/10) 936ml Weights: (02/13) 74.5kg/164lbs, (02/09) 73.8kg/162.36lbs, (02/06) 74.3kg/163.5lbs Edema: +2 edema on BUE, +1 edema BLE. Last BM: (02/09) 1x form BM on 02/08 per RN. Skin: R buttock and RLE posterior [place] ulcer Michael: 12 I/Os: (02/13)2545/300ml = 2245ml, (02/12) 1919/2210ml = -291ml, (02/11) 1560/400ml = 1160ml, (02/10) 2228/750ml = 1478ml Per last RD Note (02/09), Pt was seen ETT to vent, lying in bed with no s/s of distress. Per pt's primary RN, pt had GRV=10ml today and tube feeding was infusing at goal 30 ml/hr. Additionally, RN also reported no GI distress today, and pt had a form BM on 02/08. RD Note (02/13): Pt was seen lying in bed, on mechanical vent, with no s/s of distress during visit. Pt's tube feeding was seen infusing at goal rate 50ml/hr, and pt was having HD. Per pt's primary RN, pt had approximately 10 cc of residual, and pt's last BM was today. Estimated Nutritional Needs Based on adjusted body weight (56kg) Minute ventilation: 9.3 L/min Tmax: 36.7 C Energy: 9888-9249 vs. 1461 kcal/day (25-30 kcal/kg vs. PSU 2003b for COVID+, vent dependence) Protein: 67-112 g/day (1.2-2 g/kg for vent dependence, ESRD on HD, and wound healing) Fluid: 9424-7159 ml/day (20-25 ml/kg for COVID +, edema, on multiple diuretics) or per MD Nutrition Diagnosis: (ongoing) 1. Increased energy and protein needs r/t hypermetabolic state and skin integrity a/e/b pt has sepsis and pressure ulcer to buttocks. (resolved; on tube feeding) 2. Masticatory difficulty r/t loose teeth a/e/b pt reported having 3 loose teeth and prefers mechanical soft diet and soup. (ongoing, modified) 3. Impaired nutrition utilization r/t endocrine dysfunction a/e/b PMHx of DM, and elevated glucose 401 on 02/13. (resolved) 4. Inadequate energy and protein intake r/t insufficient tube feeding infusion a/e/b pt current regimen meeting 62% of estimated kcal needs and 64% of estimated protein needs. Intervention: 1. Recommend continue vital 1.2 at 50 ml/hr. It will provide a volume of 1200ml, 1440kcal, 90g protein and 973ml free water meeting 100% of estimated kcal (99% PSU) and protein needs. 2. Recommend continue free water flush 50ml Q4H for additional 300ml and a grand total 1171ml free water. 3. Recommend Marty BID for wound healing Recommendation provided to Dr. Craft, and Dr. Craft acknowledged. Monitor/Evaluate: Goal: Have pt meet at least 80% of estimated needs via nutrition support (met, ongoing goal) Monitor: Nutrition support tolerance, Labs, GI function, Body weight F/U in 2-3 days as high risk 02/15-9
--- NOTE | 2020-02-14 16:15 | NUR ---
PT BECAME RESTLESS AND DESAT TO 60'S. VERSED ON AT THIS TIME AT 1.5 MG/HR. WILL TRINITYIFOT FOR PATIENT RESPONSE
--- NOTE | 2020-02-14 19:15 | NUR ---
RECEIVED REPORT FROM HUONG SPARROW. WILL RESUME CARE.
--- NOTE | 2020-02-14 19:30 | NUR ---
SBAR REPORT GIVEN TO JL SPARROW. ALL UPDATES GIVEN.
--- NOTE | 2020-02-14 23:00 | NUR ---
SEDATION TURNED OFF. PT EXHIBITS POOR RESPONSE TO STIMULI. WILL CONTINUE TO MONITOR AND EVALUATE THE NEED TO RESUME SEDATION.
[2020-02-15] VITALS (15 sets, daily range): BP systolic 91–155; BP diastolic 57–82
--- NOTE | 2020-02-15 02:40 | NUR ---
INCREASED PEEP FROM 8 TO 12 PER SOAKER MEAT, KESHA'S REQUEST. SPO2 INCREASED FROM 78 TO 91. WILL CONTINUE TO MONITOR.
--- NOTE | 2020-02-15 05:35 | NUR ---
PT CLEANED. F/C CARE PROVIDED. GOWN, LINEN, CHUCKS CHANGED. BED PLACED IN LOW POSITION. CALL LIGHT WITHIN REACH.
[2020-02-15 06:16] LABS: BASOPHIL % 0 % (0-2); PLATELET COUNT 92 x10^3mcL (130-400); RED CELL DISTRIBUTION WIDTH 24.6 % (11.5-14.5)
[2020-02-15 06:36] LABS: ALBUMIN 1.1 g/dL (3.4-5.0); BILIRUBIN TOTAL 0.24 mg/dL (0.20-1.00); C REACTIVE PROTEIN 14.2 mg/dL (<=0.9); CARBON DIOXIDE 24.6 mmol/L (21-32); CREATININE SERUM 2.7 mg/dL (0.6-1.0); MAGNESIUM 2.1 mg/dL (1.8-2.4); POTASSIUM SERUM 4.5 mmol/L (3.5-5.1); TOTAL PROTEIN, SERUM 4.6 g/dL (6.4-8.2)
--- NOTE | 2020-02-15 07:15 | NUR ---
REPORT GIVEN TO TOMAS SPARROW. ALL QUESTIONS/CONCERNS ADDRESSED.
--- NOTE | 2020-02-15 07:30 | NUR ---
Spoke to Dr. Mcadams regarding WBC 35.1, awaiting orders at this time. Will continue to monitor.
--- NOTE | 2020-02-15 07:47 | NUR ---
DR MILLER AT BEDSIDE ALL UPDATES PROVIDED AT THIS TIME, NO NEW ORDERS AT THIS TIME. WILL CONTINUE TO MONTIOR.
--- NOTE | 2020-02-15 08:43 | NUR ---
RESUMED SEDATION AT THIS TIME, PATIENT HIGH RESPIRATORY RATE OF 35, AND HIGH PIP NOTED ON VENTILATOR. RT ENDY AWARE AND AT BEDSIDE. VERSED STARTED AT 4 MG/HR AND FENTANYL STARTED AT 3 MCG/KG/HR. PATIENT STABLE, WILL CONTINUE TO MONITOR.
--- NOTE | 2020-02-15 10:06 | NUR ---
INCREASED VERSED TO 5 MG/HR PATIENT RR 35 AND VENT ALARMING AT THIS ITME. WILL CONTINUE TO MONITOR.
--- NOTE | 2020-02-15 10:07 | NUR ---
PER DR ROLDAN, PATIENT DOES NOT NEED SECOND COVID SWAB. WILL CONTINUE TO MONITOR. ALL UPDATES PROVIDED AT THIS TIME, NO NRE ORDERS.
--- NOTE | 2020-02-15 11:00 | NUR ---
WOUND CARE NOTE: SKIN ASSESSMENT DONE WITH PRIMARY RN,RIGHT BUTTOCK SURGICAL WOUND 6X4X0.5 CM, NO UNDERMINING,WOUND BED IMPROVING WITH 30% SOFT YELLOW SLOUGH TISSUE AND 70% PALE PINK TISSUE, NO ODOR, SMALL AMOUNT SEROSANGENOUS DRAINAGE FRANCHESCA-WOUND SKIN CLEAN DRY AND INTACT. WOUND DRESSING CHANGED. NOTICED MAD TO RIGHT AND LEFT INNER BUTTOCKS, SUPERFICIAL EROSIONS, WOUND BED CLEAN. LEFT LOWER LEG PERVIOUS DRY SCAB RESOLVED RECOMMENDATION: -CLEANSE LEFT AND RIGHT BUTTOCKS WITH MILD SOAP AND WATER, PAT DRY, APPLY THIN LAYER OF Z GUARD, COVER WITH FOAM DRESSING QD AND PRN IF SOILING
--- NOTE | 2020-02-15 11:05 | NUR ---
TITRATED FIO2 TO 80%. PT TOLERATING WELL. WILL CONT.TO MONITOR
--- NOTE | 2020-02-15 11:33 | NUR ---
WOUND CARE NURSE DARNELL AT BEDSIDE ASSESSING R BUTTOCK WOUND. DRESSING CHANGE DONE AT THIS TIME, PATIENT STABLE, WILL CONTINUE TO MONITOR.
--- NOTE | 2020-02-15 17:46 | NUR ---
DR HORTA AT BEDSIDE. ALL UPDATES GIVEN. NO NEW ORDERS AT THIS TIME. WILL CONTINUE TO MONITOR.
--- NOTE | 2020-02-15 18:13 | NUR ---
PATIENT REMAINS STABLE AT THIS TIME. RIJQ AND LIJ REMAINS INTACT AND SECURED AT THIS TIME. NO SIGNS OR SYMPTOMS OF DISTRESS. HEELS ARE OFFLOADED WITH PILLOWS. WILL CONTINUE TO MONITOR AND ENDORSE REPORT TO ONCOMING RN.
--- NOTE | 2020-02-15 19:07 | NUR ---
REPORT GIVEN TO ANDREWS STEVEN, ALL QUESTIONS ANSWERED.
--- NOTE | 2020-02-15 19:40 | NUR ---
TITRATED FENTANYL DOWN TO 2MCG/KG/HR FROM 3MCG/KG/HR. PT MAXIMUM DOSAGE IS 2.67MCG/KG/HR.
--- NOTE | 2020-02-15 19:55 | NUR ---
RECEIVED CHANGE OF SHIFT REPORT FROM SITA SPARROW AT 1905. PT IS INTUBATED AND SEDATED ON FENTANYL AT 3MCG/KG/HR AND VERSED AT 6MG/HR. RSS OF 4. PT RESPONDS TO TACTILE STIMULI. 7.0 ETT ITNACT AND SECURED, 24CM AT LL. VCV/AC MODE: 450 VT, 80%FIO2, 16 RATE, 12 PEEP. +1 EDEMA NOTED TO BUE AND BLE. CIVIL PREPAREDNESS OFFICER SHOWING NSR, HR: 75. RIGHT BUTT ULCER AND RIGHT TREVINO ULCER. VITAL 1.2 INFUSING AT 50ML/HR WITH 50ML FWF Q4H THROUHG OGT. GRV: 0ML. LIJ CVC 2 PORTS PATENT, DRESSING CDI, INTACT. RIJ MIRNA INTACT, DRESSING CDI. SKY INTACT AND DRAINING VIA GRAVITY. FLEXISEAL INTACT AND DRAINING VIA GRAVITY. PT ON BILATERAL SOFT WRIST RESTRATINTS.
--- NOTE | 2020-02-15 21:30 | NUR ---
PT REMAINS RESTLESS AND AGITATED. TITRATED FENTANYL UP TO 2.5MCG/KG/HR.
--- NOTE | 2020-02-15 21:45 | NUR ---
CALLED RT TO NOTIFY THAT O2 SATURATION DROPPED TO MID 80S. FIO2 STILL AT 80%. RT STATES THAT THEY WILL COME TO INCRASE FIO2
--- NOTE | 2020-02-15 23:15 | NUR ---
RT AT BEDSIDE. O2 SAT STILL AT MID 80S. RT CHANGE THE FIO2 TO 100%.
[2020-02-16] VITALS (11 sets, daily range): BP systolic 88–154; BP diastolic 55–88
--- NOTE | 2020-02-16 00:01 | NUR ---
TITRATED FENTANYL DOWN TO 2MCG/KG/HR.
--- NOTE | 2020-02-16 01:30 | NUR ---
PT IS RESTLESS AND AGITATED. TITRATED VERSED TO 8MG/HR
--- NOTE | 2020-02-16 02:45 | NUR ---
PT IS RESTLESS AND AGITATED. TITRATED VERSED UP TO 10MG/HR
[2020-02-16 05:49] LABS: BILIRUBIN TOTAL 0.2 mg/dL (0.20-1.00); CALCIUM 8.2 mg/dL (8.5-10.1); CARBON DIOXIDE 25.4 mmol/L (21-32); CREATININE SERUM 2.8 mg/dL (0.6-1.0); PHOSPHOROUS 4.2 mg/dL (2.5-4.9); POTASSIUM SERUM 4.4 mmol/L (3.5-5.1)
[2020-02-16 05:50] LABS: PLATELET COUNT 71 x10^3mcL (130-400); RED CELL DISTRIBUTION WIDTH 25.5 % (11.5-14.5)
[2020-02-16 05:51] LABS: ALBUMIN 1.2 g/dL (3.4-5.0); TOTAL PROTEIN, SERUM 4.6 g/dL (6.4-8.2)
[2020-02-16 05:58] LABS: C REACTIVE PROTEIN 17.6 mg/dL (<=0.9)
--- NOTE | 2020-02-16 07:25 | NUR ---
GAVE CHANGE OF SHIFT REPORT TO RITA SPARROW. QUESTIONS ENDORSED AND CARE ENDORSED
--- NOTE | 2020-02-16 07:25 | NUR ---
RECEIVED PT FROM FAMILY NURSE NURSE. ASSESSED AND DOCUMENTED. DENIES PAIN THIS TIME. INTUBATED AND ON VENTILATOR, SPO2 94%. SAFTEY PRECAUTIONS ARE IN PLACE. WILL MONITOR.
--- NOTE | 2020-02-16 11:00 | NUR ---
PT SPO2 80%. ON VENTILATOR 100% O2. NO SOB NOTED BUT PT IS WAKING UP AND USING ABD MUSCLES. CHANGED VERSED RATE TO 12MG/HR. FENTANYL 2MCG/KG/HR. RT AWARE AND DOCTOR AND CHARGE NURSE AWARE. CLOSELY MONITERING THE PT.
--- NOTE | 2020-02-16 11:57 | NUR ---
DR CHU PRESENT AT BEDSIDE TO DISCUSS PT POC. UPDATED ON PTS CURRENT STATUS. QUESTIONS ANSWERED. PER DR VELA, INCREASE PEEP TO 14 AT THIS TIME. RT NOTIFIED AND MADE AWARE
--- NOTE | 2020-02-16 12:00 | NUR ---
INCREASED PEEP TO [address] CHU. SPO2:92%. WILL CONT.TO MONITOR
--- NOTE | 2020-02-16 12:31 | NUR ---
HD NURSE CAME AND STARTED HD. BP IS DROPPING LEVOPHED IV STARTED 6MCG/HR. MONITERING THE BP. PT IS STABLE. SPO2 84%, ON VENTILATOR 100% O2. RT AWARE. DOCTORS AND CHARGE NURSE AWARE. NO SOB NOTED.
--- NOTE | 2020-02-16 15:00 | NUR ---
BP IS GETTING HIGH, TURNED OFF THE LEVOPHED THIS TIME.
--- NOTE | 2020-02-16 15:25 | NUR ---
HD FINISHED WITH 1600ML OUT PUT. V/S STABLE. RZ=558/58, HR 93, RR 16 AND SPO2 100% IN VENTILATOR 100% OF O2. PT IS STABLE.
--- NOTE | 2020-02-16 17:40 | NUR ---
BP IS DROPPING 77/47. TURNED ON LEVOPHEP WITH 6MCG THIS TIME.
--- NOTE | 2020-02-16 19:15 | NUR ---
RECEIVED REPORT FROM SAMREEN SPARROW. WILL RESUME CARE.
--- NOTE | 2020-02-16 19:25 | NUR ---
RECEIVED PT INTUBATED AND SEDATED ON FENTANYL AT 2MCG/KG/HR AND VERSED AT 10MG/HR. RSS 5. PUPILS 3MM SLUGGISH. 7.0 ETT AT 25CM LL INTACT AND SECURED. OGT INTACT AND SECURED TO ETT. RIJ QUINTONWNL AND LIJ CVC WNL, DRESSINGS CDI. ON VENT VCV-A/C MODE WITH SETTINGS OF VT 450, FIO2 90%, R 16, PEEP 14. LUNG SOUNDS CLEAR TO UPPER LOBE AND DIMINISHED TO BASES. VAP CARE PROVIDED. S1S2 AUSCULTATED. NO S/SX OF CHEST PAIN. +2 EDEMA TO BUE'S AND BLE'S. CAP REFILL <3 SEC. PULSES PALPABLE. FLEXISEAL IN PLACE DRAINING VIA GRAVITY LOOSE STOOL. ABDOMEN ROUND, NONTENDER. BS ACTIVE X 4. NO N/V. SKY CATHTER IN PLACE WITH NO URINE OUTPUT NOTED, HD PT. R BUTTOCK AND TREVINO ULCER. BED IN LOW POSITION. CALL LIGHT WITHIN REACH. WILL CONTINUE TO MONITOR.
--- NOTE | 2020-02-16 19:30 | NUR ---
PT BP IS GETTING HIGH AGAIN IN , TURNED OFF THE LEVOPHED THIS TIME. PT IS STABLE. NO SOB NOTED. GAVE REPORT TO PARTS CLERK PLANT MAINTENANCE NURSE.
--- NOTE | 2020-02-16 22:10 | NUR ---
US VENOUS BILATERAL LOWER EXTREMITY, BEING DONE AT BEDSIDE.
[2020-02-17] VITALS (14 sets, daily range): BP systolic 96–130; BP diastolic 61–77
--- NOTE | 2020-02-17 04:46 | NUR ---
CHAINSTITCH BINDER AT BEDSIDE FOR BLOOD DRAW.
[2020-02-17 05:46] LABS: BASOPHIL % 0 % (0-2); PLATELET COUNT 80 x10^3mcL (130-400); RED CELL DISTRIBUTION WIDTH 25.4 % (11.5-14.5)
[2020-02-17 06:01] LABS: BILIRUBIN TOTAL 0.25 mg/dL (0.20-1.00); C REACTIVE PROTEIN 9.1 mg/dL (<=0.9); CARBON DIOXIDE 25.4 mmol/L (21-32); CREATININE SERUM 2.3 mg/dL (0.6-1.0); POTASSIUM SERUM 4.6 mmol/L (3.5-5.1)
[2020-02-17 06:13] LABS: ALBUMIN 1.2 g/dL (3.4-5.0); TOTAL PROTEIN, SERUM 4.8 g/dL (6.4-8.2)
--- NOTE | 2020-02-17 11:13 | NUR ---
DR CHU PRESENT AT BEDSIDE TO DISCUSS PT POC. UPDATED ON PTS CURRENT STATUS. QUESTIONS ANSWERED.
--- NOTE | 2020-02-17 14:16 | NUR ---
Follow-up Nutrition Assessment: ICU4 ROCHELLE FRIEDMAN 49F MR Dx: Sepsis hyperkalemia, Renal failure PMHx: DM, GERD, HTN, Dyslipidemia Labs: (02/16) BG 299H, BUN 57H, Cr 2.3H, AST 50H, ALT 73H, Alk ph 420H, WBC 23.9H, H/H 8.7/28L, CRP 9H Meds: Aspirin, Colace, Decadron, Ferrlecit, Lantus, Lasix, Levophed, Pro-amatine, Procrit, Protonix, sublimaze, Ventolin, Versed PRN meds: Benadryl, Humulin Diet: vital 1.2 at 50ml fwf 50ml Q4H via OGT PO Intake: (02/16)1200ml, (02/15)1086ml, (02/14)1132ml, (02/13)1090ml, (02/12) 650ml, (02/11) 650ml, (02/10) 936ml Weights: (02/16) 75kg/165lbs (02/13) 74.5kg/164lbs, (02/09) 73.8kg/162.36lbs, (02/06) 74.3kg/163.5lbs Edema: +2 edema to BUE and BLE Last BM: Flexiseal in place draining stool Skin: Buttocks and paniagua ulcer Michael: 12 I/Os: (02/16)2534/1850ml = 684ml, (02/15)2338/550ml = 1788ml, (02/14)2049/2300ml = -251, (02/13) 2545/300ml = 2245ml, (02/12)1919/2210ml = -291ml, (02/11)1560/400ml = 1160ml Per last RD Note (02/13): Pt was seen lying in bed, on mechanical vent, with no s/s of distress during visit. Pt's tube feeding was seen infusing at goal rate 50ml/hr, and pt was having HD. Per pt's primary RN, pt had approximately 10 cc of residual, and pt's last BM was today. RD Note (02/16): Per Progress note (02/16), pt had no significant clinical changes overnight, urine output minimal, HD per Nepro, sedated, off pressor. Pt was seen lying in bed, ETT to vent with no s/s of distress. Pt's tube feeding was seen infusing at 50ml/hr. Per pt's primary RN, pt was tolerating tube feed well with GRV=0. Pt's flexiseal in place and draining stool per RN. Additionally, RN mentioned that Marty BID were given to pt for wound healing. Estimated Nutritional Needs Based on adjusted body weight (56kg) Minute ventilation: 9.3 L/min Tmax: 36.7 C Energy: 4002-7495 vs. 1461 kcal/day (25-30 kcal/kg vs. PSU 2002b for COVID+, vent dependence) Protein: 67-112 g/day (1.2-2 g/kg for vent dependence, ESRD on HD, and wound healing) Fluid: 2772-3129 ml/day (20-25 ml/kg for COVID +, edema, on multiple diuretics) or per MD Nutrition Diagnosis: (ongoing) 1. Increased energy and protein needs r/t hypermetabolic state and skin integrity a/e/b pt has sepsis and pressure ulcer to buttocks. (resolved; on tube feeding) 2. Masticatory difficulty r/t loose teeth a/e/b pt reported having 3 loose teeth and prefers mechanical soft diet and soup. (ongoing, modified) 3. Impaired nutrition utilization r/t endocrine dysfunction a/e/b PMHx of DM, and elevated glucose 299 on 02/16. (resolved) 4. Inadequate energy and protein intake r/t insufficient tube feeding infusion a/e/b pt current regimen meeting 62% of estimated kcal needs and 64% of estimated protein needs. Intervention: 1. Continue vital 1.2 at 50 ml/hr. It will provide a volume of 1200ml, 1440kcal, 90g protein and 973ml free water meeting 100% of estimated kcal (99% PSU) and protein needs. 2. Continue free water flush 50ml Q4H for additional 300ml and a grand total 1171ml free water. 3. Continue Marty BID for wound healing Monitor/Evaluate: Goal: Have pt meet at least 80% of estimated needs via nutrition support (met, ongoing goal) Monitor: Nutrition support tolerance, Labs, GI function, Body weight, and skin integrity F/U in 2-3 days as high risk 02/18-
--- NOTE | 2020-02-17 19:10 | NUR ---
RECEIVED REPORT FROM RICHARDSON SPARROW. WILL RESUME CARE.
--- NOTE | 2020-02-17 19:19 | NUR ---
REPORT GIVEN TO FRONT COUNTER ATTENDANT ANDREWS ALEXIS. QUESTIONS ANSWERED. ENDORSED CARE AT THIS TIME
--- NOTE | 2020-02-17 19:20 | NUR ---
RECEIVED PT INTUBATED AND SEDATED ON VERSED AT 10MG/HR AND FENTANYL AT 2MCG/KG/HR. PT RESPONSIVE TO PAINFUL STIMULI AND UNABLE TO FOLLOW COMMANDS. 7.0 ETT AT 24CM LL INTACT AND SECURED. OGT INTACT AND SECURED TO ETT. NO REDNESS, DRAINAGE, OR SWELLING NOTED TO EENT. RIJ MIRNA AND LIJ CVC WNL, DRESSINGS CDI. ON VENT VCV-A/C MODE WITH SETTINGS OF VT 450, FIO2 100%, PEEP 14, RATE 16. VAP CARE PROVIDED. LUNG SOUNDS HAVE CRACKLES TO UPPER LOBES AND DIMINISHED TO BASES. S1S2 AUSCULTATED. NO S/SX OF CHEST PAIN AT THIS TIME. CAP REFILL <3 SEC. PITTING EDEMA TO BUE/BLE. PULSES PALPABLE. GENERALIZED WEAKNESS. ON BILATERAL SOFT WRIST RESTRAINTS FOR PT'S SAFETY. ABDOMEN OBESE, NONTENDER. BS ACTIVE X 4. NO N/V. SKY CATHETER IN PLACE DRAINING MINIMAL AMOUNT OF URINE, HD PT. BED IN LOW POSITION. CALL LIGHT WITHIN REACH.
--- NOTE | 2020-02-17 21:49 | NUR ---
PT DESATING TO 78%. RT MAITE INCREASED FIO2 TO 100%. O2SAT NOW 91%.
[2020-02-18] VITALS (14 sets, daily range): BP systolic 76–185; BP diastolic 46–86
--- NOTE | 2020-02-18 04:50 | NUR ---
GALLERY OR MUSEUM ATTENDANT AT BEDSIDE FOR BLOOD DRAW.
--- NOTE | 2020-02-18 05:45 | NUR ---
PT DESATING TO 72%. PT ALREADY ON 100% FIO2. PEEP INCREASED TO 16. OSAT NOW 89%. WILL CONTINUE TO MONITOR.
[2020-02-18 06:57] LABS: BASOPHIL % 0 % (0-2); PLATELET COUNT 99 x10^3mcL (130-400); RED CELL DISTRIBUTION WIDTH 26.8 % (11.5-14.5)
--- NOTE | 2020-02-18 07:15 | NUR ---
CHEST X-RAY BEING DONE AT BEDSIDE.
[2020-02-18 07:16] LABS: CALCIUM 7.9 mg/dL (8.5-10.1); CARBON DIOXIDE 26.3 mmol/L (21-32); CREATININE SERUM 2.5 mg/dL (0.6-1.0); MAGNESIUM 1.9 mg/dL (1.8-2.4); PHOSPHOROUS 4.6 mg/dL (2.5-4.9)
--- NOTE | 2020-02-18 08:58 | NUR ---
DR. MILLER UPDATED ON PT. NO NEW ORDERS AT THIS TIME.
[2020-02-18 11:06] LABS: rbc morphology (normal/abnorm) ABNORMAL (NORMAL)
--- NOTE | 2020-02-18 13:20 | NUR ---
ANDREWS FERNANDES AT BEDSIDE FOR HD, WILL CONTINUE TO MONITOR
--- NOTE | 2020-02-18 13:25 | NUR ---
MD DUMAS AT BEDSIDE, UPDATED ON PATIENTS STATUS, NO NEW ORDERS AT THIS TIME
--- NOTE | 2020-02-18 13:53 | NUR ---
LEVOPHED INITIATED FOR BP = 75/35, ALBUMIN ADMINISTERED AT THIS TIME, WILL CONTINUE TO MONITOR
--- NOTE | 2020-02-18 14:08 | NUR ---
LEVOPHED @ 20MCG/MIN BP=55/26, HR=60
--- NOTE | 2020-02-18 15:18 | NUR ---
LEVOPHED TITRATED TO 5MCG/MIN BP 111/59, WILL CONTINUE TO MONITOR
--- NOTE | 2020-02-18 16:20 | NUR ---
HD COMPLETE RN FERNANDES ADMINISTERED 10,000 UNITS HEPRIN FOR DIALYSIS PORT PATENTCY, PER RN TOOK 2 LITERS OUT
--- NOTE | 2020-02-18 16:45 | NUR ---
LEVOPHED WAS TURNED OFF FOR BP 155/95
--- NOTE | 2020-02-18 17:44 | NUR ---
LEVOPHED TURNED ON FOR BP 87/53, WILL CONTINUE TO MONITOR
--- NOTE | 2020-02-18 18:58 | NUR ---
LEVOPHED OFF AT THIS TIME FOR BP 96/51 (66)
--- NOTE | 2020-02-18 19:09 | NUR ---
REPORT GIVEN TO YAMILEX SPARROW, ALL QUESTIONS & CONCERNS ANSWERED
--- NOTE | 2020-02-18 19:10 | NUR ---
RECEIVED CHANGE OF SHIFT REPORT FROM DANIELA SPARROW. PT IS INTUBATED AND SEDATED ON FENTANYL AT 1.7MCG/KG/HR AND VERSED AT 7MG/HR. PT RESPONDS TO TACTILE STIMULI. RSS OF 4. VCV/AC MODE: 450VT, 100% FIO2, 16 PEEP, RAT 16. +1 EDEMA NOTED TO BUE AND BLE. SCD NOTED. HR SHOWING NSR. RIGHT BUTT ULCER AND RIGHT TREVINO ULCER. VITAL 1.2 INFUSING AT 50ML/HR WITH FWF 50ML Q4H. GRV: 0ML. THROUGH OGT. SKY INTACT AND DRAINING VIA GRAVITY. FLEXISEAL INTACT AND DRAINING VIA GRAVITY. PT ON BILATERAL SOFT WRIST RESTRAINTS. PT ON CONTINOUS CARDIAC AND PULSE OX MONITOR.
--- NOTE | 2020-02-18 19:59 | NUR ---
SEEN AND EXAMINED BY WITH NEW ORDER TO DECREASE PEEP FROM 16 TO 14 NOTED AND CARRIED OUT. WILL CONTINUE TO MONITOR.
--- NOTE | 2020-02-18 20:05 | NUR ---
RT AT BEDSIDE CHANGE THE PEEP TO 14
--- NOTE | 2020-02-18 23:24 | NUR ---
TITRATED VERSED DOWN TO 6MG/HR
[2020-02-19] VITALS (15 sets, daily range): BP systolic 90–151; BP diastolic 42–81
--- NOTE | 2020-02-19 02:14 | NUR ---
titrated VERSED DOWN TO 5MG/HR
[2020-02-19 06:31] LABS: PLATELET COUNT 100 x10^3mcL (130-400); RED CELL DISTRIBUTION WIDTH 25.9 % (11.5-14.5)
[2020-02-19 06:56] LABS: CALCIUM 7.3 mg/dL (8.5-10.1); CREATININE SERUM 2.1 mg/dL (0.6-1.0); POTASSIUM SERUM 4.5 mmol/L (3.5-5.1)
--- NOTE | 2020-02-19 07:09 | NUR ---
GAVE CHANGE OF SHIFT REPORT TO SITA SPARROW. QUESTIONS AND ENDORSED CARE
[2020-02-19 07:22] LABS: BAND NEUTROPHIL 8 % (0-10); MONOCYTE 1 % (0-7); SEGMENTED NEUTROPHILS 86 % (37-75)
[2020-02-19 07:23] LABS: rbc morphology (normal/abnorm) ABNORMAL (NORMAL)
[2020-02-19 07:24] LABS: PLATELET MORPHOLOGY LARGE PLATELET SEEN
--- NOTE | 2020-02-19 08:18 | NUR ---
DR MILLER AT BEDSIDE. ALL UPDATES PROVIDED. PER DR MILLER, SPEAK WITH RESIDENTS TO SEE IF THEY CAN SPEAK WITH PATIENTS FAMILY FOR PATIENTS GAEL, WILL FOLLOW UP AND CONTINUE TO MONITOR PATIENT.
--- NOTE | 2020-02-19 08:37 | NUR ---
LAB CALLED AT THIS TIME FOR PATIENT AM LABS, CIGAR HEAD STRINGER STS THAT BLOOD WAS HEMOLIZED, AND THEY WILL REDRAW. PATIENT STABLE AT THIS TIME, WILL CONTINUE TO MONITOR.
--- NOTE | 2020-02-19 12:42 | NUR ---
DR GUILLEN MADE AWARE OF H/H: 7.1 AND 23. NO NEW ORDERS AT THIS TIME, WILL CONTIUE TO MONITOR.
--- NOTE | 2020-02-19 16:55 | NUR ---
CLEANSING PT AND REPOSTIONING DONE AT THIS TIME. UPON REPOSTITIONING NOTED PT TO DESAT TO 80% AND HR:29. SBP NOTED TO BE 70. PT HOB ELEVATED AND REPOSITIONED. RT BULLARD AND NOTIFIED AT THIS TIME. LEVOPHED WAS INITIATED AT THIS TIME. VENT SETTINGS CHANGED TO PRESSURE AC MODE, RATE:16, PRESSURE:24, PEEP:14 AND FIO2:100%. EKG DONE AT THIS TIME, NOTED TO BE NSR. PT VITALS TRENDING UP AT THIS TIME. WILL CONTINUE TO MONITOR.
--- NOTE | 2020-02-19 18:50 | NUR ---
Pt is in bed. Pt is stable. All lines are intact. No distress noted at this time. Will continue to monitor and endorse to oncoming RN.
--- NOTE | 2020-02-19 18:54 | NUR ---
spoke with dr reinoso at this time and he sts that it is ok for family to visit patient. informed patients family, it is one at a time, no s/s of sickness and can only be visit for a small amount of time and outside of room with mask. daughter bebe verbalized understanding.
--- NOTE | 2020-02-19 19:04 | NUR ---
Report given to ANDREWS Sequeira. All questions answered.
--- NOTE | 2020-02-19 19:20 | NUR ---
MAP ABOVE 65. SYSTOLIC BP OF 161. TURNED OFF LEVOPHED AT THIS TIME
--- NOTE | 2020-02-19 19:45 | NUR ---
RECEIVED CHANGE OF SHIFT REPORT FROM SITA SPARROW AT 1905. PT IS INTUBATED AND SEDATED ON FENTANYL AT 1.7MCG/KG/HR AND VERSED AT 5MG/HR. RSS OF 5. PT RESPONDS TO PAINFUL STIMULI. 7.0 ETT INTACT AND SECURED, 24 CM AT LL. PCV MODE: 450 VT, 100% FIO2, 14 PEEP, 16 RATE. PULSES ARE MODERATE. BUE AND BLE +1 EDEMA NOTED. PT SHOWING NSR WITH HR OF 93. RIGHT BUTT ULCER AND RLE TREVINO ULCER. TUBE FEEDING WAS HOLD OFF BY DAY SHIFT. OGT INTACT AND SECURED. LIJ CVC INTACT, 2 PORTS ARE PATENT, AND SECURED. RIJ MIRNA INTACT AND SECURED. SKY INTACT AND THERE WAS BLOCKAGE FROM PARTICLES. FLUSHED WITH 20ML OF 0.9NS. FLEXISEAL HAD A LEAK. 10ML OF WATER WAS ADDED TO THE FLEXISEAL WATER SEAL. PT WAS CLEAN. PT ON BILATERAL SOFT WRIST RESTRAINTS. PT ON CONTINUOUS CARDIAC AND PULSE OX MONITOR.
--- NOTE | 2020-02-19 20:40 | NUR ---
DR. PABLO RESIDENT SPOKE TO THE FAMILY. DR. PABLO ALLOWED THEM TO BE AT BEDSIDE
--- NOTE | 2020-02-19 20:58 | NUR ---
TUBE FEEDING INITIATED AGAIN AT 50ML/HR WITH FWF 50ML Q4H
--- NOTE | 2020-02-19 21:06 | NUR ---
FAMILY AT BEDSIDE. 3 DAUGHTERRS
--- NOTE | 2020-02-19 21:23 | NUR ---
RT AT BEDSIDE CHANGE THE RATE TO 20 AND FIO2 TO 70%.
--- NOTE | 2020-02-19 22:25 | NUR ---
PT NOT TOLERATING DECREASE IN FIO2, PT WAS ON 70% AND FIO2 WAS INCREASED TO 90%. WILL CONTINUED TO MONITOR.
--- NOTE | 2020-02-19 23:59 | NUR ---
PT O2 SATURATION WENT DOWN TO 80. RT WAS CALLED AND CAME TO BEDSIDE. RT AT BEDSIDE CHANGE THE FIO2 TO 100% AND PEEP UP TO 18. O2 SATURATION WENT UP TO 93% FOR NOW
[2020-02-20] VITALS (13 sets, daily range): BP systolic 87–172; BP diastolic 52–82
--- NOTE | 2020-02-20 00:02 | NUR ---
POX 79 WITH 100% FIO2 HAD TO INCREASE THE PEEP TO 18 AT THIS TIME TO GET POX OF 88%. WILL TRY TO TITRATE.
--- NOTE | 2020-02-20 02:21 | NUR ---
RT AT BEDSIDE, TURNED DOWN PEEP TO 14.
--- NOTE | 2020-02-20 02:27 | NUR ---
RT AT BEDSIDE CHANGE THE PEEP TO 16.
--- NOTE | 2020-02-20 05:26 | NUR ---
RT AT BEDSIDE CHANGE THE PEEP TO 14.
[2020-02-20 05:54] LABS: CALCIUM 7.8 mg/dL (8.5-10.1); CARBON DIOXIDE 26.1 mmol/L (21-32); CREATININE SERUM 2.5 mg/dL (0.6-1.0); MAGNESIUM 1.8 mg/dL (1.8-2.4); PHOSPHOROUS 5.1 mg/dL (2.5-4.9); POTASSIUM SERUM 4.8 mmol/L (3.5-5.1)
[2020-02-20 05:55] LABS: C REACTIVE PROTEIN 14.8 mg/dL (<=0.9)
[2020-02-20 06:12] LABS: PLATELET COUNT 65 x10^3mcL (130-400); RED CELL DISTRIBUTION WIDTH 25.9 % (11.5-14.5)
--- NOTE | 2020-02-20 06:12 | NUR ---
RECEIVED LAB VALUE OF HG OF 6.7 AND HCT OF 21. SPOKE TO DR. BOYER AT BEDSIDE. DR. BOYER STATES THAT HE WILL PUT NEW ORDER
--- NOTE | 2020-02-20 06:18 | NUR ---
X-RAY TECH AT BEDSIDE PERFORMING X-RAY
--- NOTE | 2020-02-20 07:07 | NUR ---
GAVE CHANGE OF SHIFT REPORT TO SITA SPARROW. QUESTIONS ANSWERED. ENDORSED CARE
--- NOTE | 2020-02-20 07:48 | NUR ---
DR GUILLEN AT BEDSIDE, ALL UPDATES PROVIDED. INFORMED DR OF HGB OF 6.7. WILL AWAIT ANY NEW ORDERS, AND CARRY OUT. WILL CONTINUE TO MONITOR PATIENT.
--- NOTE | 2020-02-20 09:35 | NUR ---
DR MILLER AT BEDSIDE, ALL UPDATES GIVEN, NO NEW ORDERS AT THIS TIME.
[2020-02-20 12:22] LABS: SEGMENTED NEUTROPHILS 78 % (37-75)
[2020-02-20 12:23] LABS: BAND NEUTROPHIL 13 % (0-10); METAMYELOCTE 1 % (0-2); MONOCYTE 2 % (0-7); MYELOCYTE 1 % (0-2)
[2020-02-20 12:24] LABS: rbc morphology (normal/abnorm) ABNORMAL (NORMAL)
[2020-02-20 12:25] LABS: PLATELET MORPHOLOGY LARGE PLATELET SEEN
--- NOTE | 2020-02-20 14:21 | NUR ---
Follow-up Nutrition Assessment- [facility]-4 Dx: Sepsis, Hyperkalemia, Renal failure Labs: (02/19) BH, BUN:66H, Cr:2.5H, Ca:7.8L, Phos:5.1H, WBC:13.7H, H/H:6.7/23L Meds: Aspirin, Benadryl, Colace, Dextrose, Ferrlecit, Humulin, Lantus, Lasix, Levophed, Fili-synphrine, Pro-amatine, Procrit, Versed, Heparin Current Nutrition Support: Vital AF 1.2 at 50ml/hr, FWF:50ml q 4 TF intake: (02/17) 1695ml (02/18) 987ml (02/19) 1514ml. 3 day TF [id number], pt meeting 99% of caloric needs. GRV: (02/19) (02/18) 20ml I&O: (02/17) 2955/400(+2555ml) (02/18) 2525/2575 (-50ml) (02/19) 3079/1075 (+2004ml) Weights: (02/17) 76kg (02/18) 75.6kg (02/19) 77.4kg Skin: right butt ulcer and right skin ulcer Edema: +1 edema to BUE and BLE Last BM: +flexiseal draining via gravity, stool in brown and liquid Per progress note 02/18, no acute changes, s/p HD yesterday. Pt with DM2, necrotizing fasciotomy s/p I&D. Per Dr. Adame 02/18, pt currently on mechanical ventilation, remains on fentanyl and versed drip, underwent HD yesterday, occasional desaturation. During visit, spoke to rim fire charger operator Lori who reports pt is tolerating TF with minimal residuals. Estimated Nutritional Needs based on adjusted body weight:56kg Minute ventilation: 9.3L/min, Temperature: 36.7C Energy: 5024-0904 vs. 1461kcal/day (25-30kcal/kg vs PSU 2003b) Protein: 67-112g/day (1.2-2g/day for vent dependence, ESRD on HD and wound healing) Fluid: 1-1.2L +output for ESRD on HD Nutrition Diagnosis 1. Increased energy and protein needs related to hypermetabolic state and altered skin integrity as evidenced by pt has sepsis and pressure ulcer to buttocks (ongoing) Intervention: 1. Recommend continue Vital AF 1.2 at 50ml/hr, FWF:50ml q 4hr to provide 1440kcal, 90g protein and 973ml FWF. This meets 100% of caloric and protein needs. 2. Recommend Marty BID for wound healing. Monitor/Evaluate Previous goal: TF intake to meet 80% estimated needs (met) Goal: Continued TF intake to meet at least 80% of estimated needs with tolerance and wound healing. Monitor: TF intake, Labs, GI function, Skin integrity, Weights. F/U in 2-3 days as high risk (02/21-)
--- NOTE | 2020-02-20 17:30 | NUR ---
FIRST UNIT OF PRBCS STARTED AT THIS TIME. PATIENT STABLE, WILL CONTINUE TO MONITOR.
--- NOTE | 2020-02-20 18:16 | NUR ---
PATIENT HAD STOOL COMING OUT OF FLEXISEAL, PATIENT CLEANSED AND LINENS CHANGED AT THIS TIME, WITH MINIMIAL PATIENT TURNS, PATIENT DESATS TO 75% OXGENATION. PATIENT STABLE AT THIS TIME WITH RIJ AND LIJQ INTACT AND SECURED. HEELS ARE OFFLOADED WITH PILLOWS., HOB ELEVATED. WILL CONTINUE TO MONITOR AND ENDORSE REPORT TO ONCOMING RN.
--- NOTE | 2020-02-20 19:01 | NUR ---
REPORT GIVEN TO ANDREWS PARIKH ALL QUESTIONS ANSWERED AT THIS TIME.
--- NOTE | 2020-02-20 19:20 | NUR ---
RECEIVED PT. PT INTUBATED & SEDATED ON VERSED 10MG/H & FENTANYL 1.7 MCG/KG/H. PT DOES NOT RESPOND TO VERBAL, PAINFUL STIMULI. PUPILS 3MM FIXED. PT ON VENT PCV/AC MODE WITH SETTINGS FIO2 100%, RATE 20, PEEP 14, PS 24. NA FERRIC INFUSING @110 ML/H & PRBC INFUSING @75ML/H. PT IN NO ACUTE DISTRESS. WILL CONTINUE TO MONITOR.
--- NOTE | 2020-02-20 19:25 | NUR ---
FIRST UNIT OF PRBC'S OF TWO DONE INFUSING. POST VITALS: TEMP 97.0 F, HR 86, NIBP 146/77, RR 15 AND 02 SAT 93%. TOTAL OF 300 ML'S GIVEN. NO SIGNS OF ADVERSE REATION. WILL CONTINUE TO MONITOR.
--- NOTE | 2020-02-20 19:35 | NUR ---
SECOND BAG OF PRBC'S STARTED AT THIS TIME. PRE-VITALS: TEMP 97.0 F, HR 94, NIBP 140/75, RR 18 AND 02 SAT 94%. KAREN NURSE VERIFICATION DONE WITH MAYA RN PRIOR TO START INFUSION. PRBC'S STARTED AT 75 ML/HR. WILL CONTINUE TO MONITOR.
--- NOTE | 2020-02-20 22:25 | NUR ---
2ND BAG OF PRBC COMPLETED, 300 ML ADMINISTERED. POST INFUSION VITAL SIGNS: T 97.1, HR 81, BP 165/81, RR 20, O2 91%. NO ADVERSE REACTION NOTED, PT IN NO ACUTE DISTRESS. WILL CONTINUE TO MONITOR.
--- NOTE | 2020-02-20 23:00 | NUR ---
NOTIFIED DR. MURDOCK OF INCREASING BP, CURRENT BP 172/81 (107). WILL IMPLEMENT ORDERS. WILL CONTINUE TO MONITOR.
[2020-02-21] VITALS (16 sets, daily range): BP systolic 78–145; BP diastolic 40–80
--- NOTE | 2020-02-21 01:51 | NUR ---
VERSED TITRATED TO 9 MG/H. WILL CONTINUE TO MONITOR.
--- NOTE | 2020-02-21 05:30 | NUR ---
FOLDER MACHINE ADJUSTER AT BEDSIDE FOR BLOOD DRAW.
--- NOTE | 2020-02-21 05:45 | NUR ---
PT UNABLE TO TOLERATE TURNING, PT BECOMES EXTREMELY BRADYCARDIC & DESATS. UNABLE TO TAKE UPDATED PICTURE OF WOUNDS OR PERFORM DRESSING CHANGE. PLACED PILLOWS UNDERNEATH PT FOR COMFORT. WILL CONTINUE TO MONITOR FOR IMPROVEMENTS IN CONDITION.
[2020-02-21 06:23] LABS: BASOPHIL % 0 % (0-2); PLATELET COUNT 83 x10^3mcL (130-400); RED CELL DISTRIBUTION WIDTH 25.1 % (11.5-14.5)
[2020-02-21 06:55] LABS: CALCIUM 8.1 mg/dL (8.5-10.1); CARBON DIOXIDE 21.6 mmol/L (21-32); CREATININE SERUM 2.8 mg/dL (0.6-1.0); PHOSPHOROUS 6.3 mg/dL (2.5-4.9); POTASSIUM SERUM 5.4 mmol/L (3.5-5.1)
--- NOTE | 2020-02-21 06:59 | NUR ---
NOTIFIED DR. DORSEY OF K 5.4. NO NEW ORDERS AT THIS TIME. PT TO RECEIVE DIALYSIS TODAY. WILL MONITOR FOR FUTURE ORDERS.
--- NOTE | 2020-02-21 07:00 | NUR ---
NOTIFIED DR. DORSEY OF K 5.4. JAYSONRI 10 GM. WILL CARRY OUT.
[2020-02-21 07:19] LABS: rbc morphology (normal/abnorm) ABNORMAL (NORMAL)
--- NOTE | 2020-02-21 09:23 | NUR ---
DR. DE ANDA ASSESSED PT. PT'S STATUS UPDATED. MADE DR. DE ANDA AWARE PT'S K 5.4. PER DR. DE ANDA, IT IS OK TO HOLD LOKEMA SINCE PT IS SCHEDULED FOR HD TODAY, AND PT'S BP IS 119/68, IT IS OK TO HOLD HYDRALYZINE BECAUSE PT'S BP IS NOT STABLE.
--- NOTE | 2020-02-21 14:30 | NUR ---
DOM, HEMODIALYSIS NURSE AT BEDSIDE AND STARTED HEMODIALYSIS VIA [facility] MIRNA CATH. WILL CONTINUE TO MONITOR.
--- NOTE | 2020-02-21 15:00 | NUR ---
NIBP 65/33, MAP 41 AND HR 60. LEVOPHED INITIATED AT THIS TIME. WILL CONTINUE TO MONITOR.
--- NOTE | 2020-02-21 17:55 | NUR ---
HEMODIALYSIS DONE WITH 1.8 L OUT. PATIENT REMAINS ON LEVOPHED DRIP AT 8 MCG/MIN BUT TITRATING DOWN. WILL CONTINUE TO MONITOR.
--- NOTE | 2020-02-21 19:25 | NUR ---
RECEIVED PT. PT INTUBATED & SEDATED ON VERSED 5 MG/H & FENTANYL 2 MCG/KG/H. PT OBTUNDED. PUPILS 3MM FIXED. PT ON VENT PCV/AC MODE WITH SETTINGS FIO2 100%, RATE 20, PEEP 14, PS 24. PT BREATHING E/U. CRACKLES AUSCULTATED BUL, LUNG SOUNDS DIMINISHED BLL. PULSES MODERATE BUE, WEAK BLE. PT IN NO ACUTE DISTRESS AT THIS TIME. WILL CONTINUE TO MONITOR.
--- NOTE | 2020-02-21 21:00 | NUR ---
TITRATED FENTANYL TO 1MCG/KG/H. PT BP 91/54 (64). WILL CONTINUE TO MONITOR.
--- NOTE | 2020-02-21 22:20 | NUR ---
UNIT OF CONVALESCENT PLASMA STARTED AT THIS TIME. VSS. T 98.8, HR 95, BP 136/78, RR 20, O2 96%. WILL CONTINUE TO MONITOR.
[2020-02-22] VITALS (15 sets, daily range): BP systolic 101–144; BP diastolic 56–80
--- NOTE | 2020-02-22 00:30 | NUR ---
CONVALESCENT PLASMA INFUSION COMPLETE, 25OML INFUSED. NO ADVERSE SIDE EFFECTS NOTED. VS T 98.6, HR 94, BP 137/79, RR 20, O2 95%. WILL CONTINUE TO MONITOR.
--- NOTE | 2020-02-22 05:30 | NUR ---
PT CLEANED. WOUND CARE PROVIDED. GOWN, LINEN, CHUCKS CHANGED. BED PLACED IN LOW POSITION, CALL LIGHT WITHIN REACH.
--- NOTE | 2020-02-22 08:20 | NUR ---
DR STANFORD PAGED AT THIS TIME. AWAITING CALL BACK FOR PT UPDATES
--- NOTE | 2020-02-22 09:28 | NUR ---
RC'D PT IN BED INTUBATED AND SEDATED ON VERSED 5MG/HR AND FENTANYL 1MCG/KG/HR. PT OBTUNED, NO RESPONSE TO PAINFUL STIMULI. PUPILS 3MM AND FIXED BILAT. NO GAG REFLEX NOTED. 7.0 ETT INTACT AND SECURED, 24CM LL. RIGHT MIRNA INTACT, DRESSING CDI. LIJ CVC INTACT, PORTS PATENT X1, DRESSING CDI. OGT INTACT AND SECURED. ETT TO VENT, PRESSURE A/C; RATE 20 PEEP 14, FIO2 100% PSV 24. RESP E/U. LUNGS DIM TO BASES, CRACKLES NOTED. SPO2 93%. NSR ON CM, HR 92. S1S2 AUSC. NO S/S OF CP. WEAK PALP PULSES TO BUE/BLE, EDEMA NOTED TO BUE/BLE, ELEVATED. SKIN WARM TO TOUCH AND CONSISTENT WITH ETHNICITY. BEDREST. PT REPOSITIONED Q2H AND PRN FOR PPRESSURE REDUCTION. TF @ 50 WITH FWF 50 Q4H. GRV 20. ABDMOEN OBESE AND ROUND. ACTIVE BS. FLEXISEAL. F/C WITH MINIMAL URINE BLOOD TINGED DRAINING TO GRAVITY, SECURED IN PLACE. SEE SHIFT ASSESSMENT FOR SKIN. WILL CONT TO MONITOR
--- NOTE | 2020-02-22 09:33 | NUR ---
DR DE ANDA AT BEDSIDE TO DISCUSS PT POC. UPDATED ON PTS CURRENT STATUS. QUESTIONS ANSWERED.
--- NOTE | 2020-02-22 10:28 | NUR ---
DR HWANG AND MED TEAM PRESENT AT BEDSIDE TO DISCUSS PT POC. UPDATED ON PTS CURRENT STATUS. QUESTIONS ANSWERED. SEDATION LOWERED AT THIS TIME PER MD ORDER TO SEE IF PT RESPONDS. VERSED CURRENTLY AT 1MG/HR AND FENTANYL 0.25MCG/KG/HR. WILL CONT TO MONITOR CLOSELY
--- NOTE | 2020-02-22 14:08 | NUR ---
Follow-up Nutrition Assessment: ICU4 ROCHELLE FRIEDMAN 50F Dx: Sepsis, Hyperkalemia, Renal failure Labs: (02/20) K 5.4H, BG 198H, BUN 86H, Cr 2.8H, Phos 6.3H, GFR 19, WBC 12.7H, H/H 9.8/31L Meds: Aspirin, Colace, Decadron, Lantus, Lasix, Levophed, Merrem, toño-synephrine, Pro-amatine, Procrit, Protonix, sublimaze, vancomycin, Versed PRN meds: Benadryl, D50%, Humulin, Ventolin Diet: Vital AF 1.2 at 50ml/hr, FWF:50ml q 4hr TF intake: (02/21)1563ml, (02/20) 625ml, (02/19)1514ml, (02/18)987ml; Average provided 1406kcal and 88g protein meeting 100% of estimated kcal and protein needs. Weights: (02/21)80kg, (02/17) 76kg (02/18) 75.6kg (02/19) 77.4kg *possibly d/t water retention Edema: edema noted to BUE/BLE Last BM: flexiseal Skin: Abdominal folds erythema, erythema noted to inner thighs Michael: 11 I/Os: (02/21)4011/2470ml = 1541ml, (02/20) 1198/250ml = 948ml, (02/19)3079/1075ml = 2004ml, (02/18) 2525/2575ml = -50ml, (02/17) 2955/400(+2555ml) (02/18) 2525/2575 (-50ml) (02/19) 3079/1075 (+2004ml) Per last RD note (02/19): Per progress note 02/18, no acute changes, s/p HD yesterday. Pt with DM2, necrotizing fasciotomy s/p I&D. Per Dr. Adame 02/18, pt currently on mechanical ventilation, remains on fentanyl and versed drip, underwent HD yesterday, occasional desaturation. During visit, spoke to termite helper Es who reports pt is tolerating TF with minimal residuals. RD Note (02/21): Pt was seen ETT to vent, lying in bed with no s/s of distress. Pt's tube feed was seen infusing at goal rate 50 ml/hr. Per RN, there was no residuals, and output was seen in fexiseal. Estimated Nutritional Needs based on adjusted body weight:56kg Minute ventilation: 9.3L/min, Temperature: 36.7C Energy: 3396-6727 vs. 1461kcal/day (25-30kcal/kg vs PSU 2003b) Protein: 67-112g/day (1.2-2g/day for vent dependence, ESRD on HD and wound healing) Fluid: 1-1.2L +output for ESRD on HD Nutrition Diagnosis: (ongoing) 1. Increased energy and protein needs related to hypermetabolic state and altered skin integrity as evidenced by pt has sepsis and pressure ulcer to buttocks Intervention: 1. Continue Vital AF 1.2 at 50ml/hr, FWF:50ml q 4hr to provide 1440kcal, 90g protein and 973ml FWF. This meets 100% of caloric and protein needs. 2. Continue Marty BID for wound healing. Monitor/Evaluate: Goal: Have pt meet at least 75% of estimated needs via nutrition support (met, ongoing goal) Monitor: Nutrition support tolerance, Labs, GI function, Body weight, Skin integrity F/U in 2-3 days as high risk 02/23-
--- NOTE | 2020-02-22 15:10 | NUR ---
PT IS SEDEATED,POC DISCUSSED WITH CN/PRIMARY RN, PT. CONDITION UNSTABLE AT TIMES, DESAT WHILE TURNING OR REPOSITIONING, CONTINUE WEIGHT SHIFTING AND OFFLOADING, CONTINUE CURRENT TREATMENT PLAN.
--- NOTE | 2020-02-22 17:07 | NUR ---
ALL SEDATION TURNED OFF AT THIS TIME. WILL CONT TO MONITOR
--- NOTE | 2020-02-22 19:29 | NUR ---
PT REMAINS INTUBATED, NO SEDATION. PT OBTUNDED. VITALS FOLLOWED; BP 101/56 HR78 RESP 20 SPO2 97%. VENTILATOR SETTINGS FOLLOWED; PRESSURE AC; FIO2 100%, RATE 20, PEEP 14, FIO2 100%. OGT INTACT AND SECURED IN PLACE. F/C WITH TEA COLORED URINE DRAINING TO GRAVITY, SECURED IN PLACE. FLEXISEAL. WILL CONT TO MONITOR
[2020-02-23] VITALS (16 sets, daily range): BP systolic 98–172; BP diastolic 58–95; Ht 157.5 cm; Wt 78.0 kg
--- NOTE | 2020-02-23 03:24 | NUR ---
RECIEVED REPORT FROM ANDREWS MARRERO TO ASSUME ALL CARE. ALL QUESTIONS AND CONCERNS ADDRESSED. WILL CONTINUE TO MONITOR.
[2020-02-23 05:58] LABS: BASOPHIL % 0.3 % (0-2); PLATELET COUNT 324 x10^3mcL (130-400)
[2020-02-23 06:01] LABS: RED CELL DISTRIBUTION WIDTH 15.2 % (11.5-14.5)
[2020-02-23 06:52] LABS: CARBON DIOXIDE 24.1 mmol/L (21-32); CREATININE SERUM 2.6 mg/dL (0.6-1.0); POTASSIUM SERUM 4.9 mmol/L (3.5-5.1)
--- NOTE | 2020-02-23 07:25 | NUR ---
REPORT GIVEN TO ANDREWS EASON TO ASSUME ALL CARES. ALL QUESTIONS AND CONCERNS ADDRESSED. WILL CONTINUE TO MONITOR.
--- NOTE | 2020-02-23 09:38 | NUR ---
PATIENT ROUNDS WITH DR. HWANG AND RESIDENTS. PRIMARY NURSE AND CHARGE NURSE AT BEDSIDE. UPDATES PROVIDED AND POC DISCUSSED. WILL CONTINUE TO MONITOR.
--- NOTE | 2020-02-23 13:00 | NUR ---
DR SALGADO OF PULMONOLOGY WAS HERE. EARLIER THE PTS FIO2 WAS LOWERED TO 90% AND THE PT WAS SATURATING 98%. LOWERED THE PEEP FROM 14 TO 12. THE S02 REMAINED WDL AT 97%
--- NOTE | 2020-02-23 14:30 | NUR ---
HD WAS STARTED AND THE PT'S BLOOD PRESSURE DIPPED DOWN WITH SYSTOLIC IN THE 80'S. I STARTED LEVOPHED AT 20MCGS/MIN.
--- NOTE | 2020-02-23 19:35 | NUR ---
RECEIVED REPORT AND PT FROM JENARO GANDARA RN. PT ON FULL KINDERGARTEN PREP TEACHER AND CONTINUOUS PULSE OXIMETRY. SEE NURSING SHIFT ASSESSMENT FOR MORE DETAILS.
--- NOTE | 2020-02-23 22:50 | NUR ---
CONTACTED DR. SOUSA AT THIS TIME ON PT'S 1800 FERRELICIT IV NOT GIVEN, PER DR. SOUSA RESIDENT OK TO HOLD AT THIS TIME.
[2020-02-24] VITALS (17 sets, daily range): BP systolic 129–151; BP diastolic 49–89
[2020-02-24 06:40] LABS: PLATELET COUNT 112 x10^3mcL (130-400); RED CELL DISTRIBUTION WIDTH 24.5 % (11.5-14.5)
[2020-02-24 06:41] LABS: CALCIUM 8.2 mg/dL (8.5-10.1); CARBON DIOXIDE 23.2 mmol/L (21-32); CREATININE SERUM 2.3 mg/dL (0.6-1.0); POTASSIUM SERUM 4.3 mmol/L (3.5-5.1)
[2020-02-24 07:03] LABS: BAND NEUTROPHIL 3 % (0-10); MONOCYTE 2 % (0-7); SEGMENTED NEUTROPHILS 88 % (37-75); rbc morphology (normal/abnorm) ABNORMAL (NORMAL)
[2020-02-24 07:04] LABS: ovalocyte/elliptocyte 1+
--- NOTE | 2020-02-24 07:19 | NUR ---
GAVE REPORT TO JENARO GANDARA RN. UPDATES PROVIDED, QUESTIONS ANSWERED, ENDORSED CARE.
--- NOTE | 2020-02-24 11:00 | NUR ---
RECIEVED PT THIS AM AT 0700. THE PT IS COVID POSITIVE AND IS ON THE VENTILATOR. ETT TO VENT SEE SHIFT ASSESSMENT AND RESPIRATORY CARE NOTES. SHE IS ON NO SEDATION SHE IS NOT RESPONDING. SHE DOES MOVE HER HEAD AND HER MOUTH WITH STIMULATION. VS ARE STABLE SEE FLOWSHEET.
--- NOTE | 2020-02-24 13:24 | NUR ---
I DID CALL DR DORSEY TO REPORT GRAM + COCCI IN CLUSTERS IN THE BLOOD WAS FOUND. SHE ACKNOWLEGED.
--- NOTE | 2020-02-24 14:22 | NUR ---
I DID DC THE [facility] CL. I ALSO SENT THE TIP FOR CULTURE.
--- NOTE | 2020-02-24 14:27 | NUR ---
Follow-up Nutrition Assessment: ICU4 ROCHELLE FRIEDMAN 50F Dx: Sepsis, Hyperkalemia, Renal failure Labs: (02/23) BG 177H, BUN 65H, Cr 2.3H, WBC 20.9H, H/h 9.9/31L, (02/20) Phos 6.3H Meds: Aspirin, Colace, Decadron, Ferrlecit, Lantus, Lasix, Levophed, merrem, Fili-synephrine, pro-amatine, Procrit, protonix, sublimze, Vancomycin, Versed PRN meds: D50%, Humulin, Ventolin Diet: vital 1.2 at 50ml/hr, fwf 50ml Q4H via OGT TF intake: (02/23) 959ml, (02/22) 1520, (02/21)1563ml, (02/20) 625ml avkcal and 86g pro meeting 100% needs. Weights: (02/23) 78.5kg, (02/21)80kg, (02/17) 76kg (02/18) 75.6kg (02/19) 77.4kg *possibly d/t water retention Edema: Edema noted to BUE/BLE Last BM: 02/23 flexiseal draining stool Skin: right buttock ulcer and right lower extremity paniagua ulcer. Michael: 10 I/Os: (02/23) 1959/2850ml = -891, (02/22)2523/800ml = 1723ml, (02/21)4011/2470ml = 1541ml, (02/20) 1198/250ml = 948ml, (02/19)3079/1075ml = 2004ml, (02/18) 2525/2575ml = -50ml Per last RD Note (02/21): Pt was seen ETT to vent, lying in bed with no s/s of distress. Pt's tube feed was seen infusing at goal rate 50 ml/hr. Per RN, there was no residuals, and output was seen in fexiseal. RD Note (02/23): Pt was seen ETT to vent, lying in bed with no s/s of distress during visit. Per pt's primary RN, pt's tube feed was infusing at goal rate 50ml/hr, and pt was tolerating tube feed with no residuals today. Additionally, RN mentioned stool draining in flexiseal. Estimated Nutritional Needs based on adjusted body weight:56kg Minute ventilation: 10.4L/min, Temperature: 36.3 C Energy: 1667-2638 vs. 1467kcal/day (25-30kcal/kg vs PSU 2003) Protein: 67-112g/day (1.2-2g/day for vent dependence, ESRD on HD and wound healing) Fluid: 1-1.2L +output for ESRD on HD Nutrition Diagnosis: (ongoing) 1. Increased energy and protein needs related to hypermetabolic state and altered skin integrity as evidenced by pt has sepsis and pressure ulcer to buttocks Intervention: 1. Continue Vital AF 1.2 at 50ml/hr, FWF:50ml q 4hr to provide 1440kcal, 90g protein and 973ml FWF. This meets 100% of caloric and protein needs. 2. Continue Marty BID for wound healing. Monitor/Evaluate: Goal: Have pt meet at least 75% of estimated needs via nutrition support (met, ongoing goal) Monitor: Nutrition support tolerance, Labs, GI function, Body weight, Skin integrity F/U in 2-3 days as high risk 02/25-
--- NOTE | 2020-02-24 15:30 | NUR ---
I CHANGED THE RT BUTTOCK ABCESS - SACRAL - AND RT SHING DRESSINGS WITH THE HELP OF JEREMY RN - CHARGE NURSE.
--- NOTE | 2020-02-24 19:25 | NUR ---
RECEIVED REPORT AND PT FROM JENARO GANDARA RN. PT ON FULL SENIOR ACCOUNTS PAYABLE SPECIALIST AND CONTINUOUS PULSE OXIMETRY. PT INTUBATED, NOT SEDATED ON VENTILATOR. SEE NURSING SHIFT ASSESSMENT FOR MORE DETAILS.
--- NOTE | 2020-02-24 23:10 | NUR ---
RT NICANOR TITRATED FIO2 TO 100%, PT WAS SATURATING @ 85%, NOW SATURATING @ 89%.
[2020-02-25] VITALS (14 sets, daily range): BP systolic 97–174; BP diastolic 46–74
--- NOTE | 2020-02-25 02:40 | NUR ---
RT NICANOR MADE AWARE OF PT'S O2 SATURATION IN 84-85%. PT REMAINS ON 100% FIO2 WITH NO IMPROVEMNT ON SUCTIONING.
[2020-02-25 06:09] LABS: CALCIUM 8.2 mg/dL (8.5-10.1); CARBON DIOXIDE 27.3 mmol/L (21-32); CREATININE SERUM 2.6 mg/dL (0.6-1.0); MAGNESIUM 1.9 mg/dL (1.8-2.4); PHOSPHOROUS 5.5 mg/dL (2.5-4.9); POTASSIUM SERUM 4.3 mmol/L (3.5-5.1)
[2020-02-25 06:15] LABS: PLATELET COUNT 85 x10^3mcL (130-400)
--- NOTE | 2020-02-25 06:46 | NUR ---
PT INTUBATED ON NO SEDATION, 02 SATURATION RANGES 88-90% AT THIS TIME WITH NO IMPROVEMENT WITH SUCTIONING, VERY SCANT CLEAR DRAINAGE. PT REMAINS ON PCV AC MODE @ 100% FIO2, RATE 20, PEEP 10, PS 24, INTACT TO VENT. F/C DRAINING TO GRAVITY INTACT/SECURED. FLEXISEAL REMAINS INTACT, DRAINING BROWN LOOSE STOOL IN TUBE. PT DESATURATES VERY EASILY WITH FULLY TURN MOVEMENT, HEMODYNAMICALLY UNSTABLE. I WAS ABLE TO SHIFT WEIGHT SLIGHTLY WITH PILLOWS AND HEELS OFFLAODED WITH PILLOWS. PT REMAINS ON FULL HOSPITAL DIRECTOR AND CONTINUOUS PULSE OXIMETRY. [facility] MIRNA CATH REMAINS INTACT FOR DIALYSIS. BED AT LOWEST SETTING, CALL LIGHT WITHIN REACH, HOB ELEVATED 45 DEGREES. OGT REMAINS INTACT/SECURED PATENT INFUSING VITAL AF TUBE FEEDING. WILL CONT TO MONITOR.
--- NOTE | 2020-02-25 07:04 | NUR ---
GAVE REPORT TO SINCERE SOLDERER FURNACE. UPDATES PROVIDED, QUESTIONS ANSWERED, ENDORSED CARE.
--- NOTE | 2020-02-25 08:00 | NUR ---
RECEIVED REPORT FROM ANDREWS UREÑA. PATIENT OBTUNDED, PUPILS 4 MM FIXED, DOES NOT RESPOND TO PAINFUL STIMULI, NO COUGH NOR GAG PRESENT. ON ETT (7.0/24 CM ON RIGHT LIP) TO VENT WITH SETTINGS: PVC/AC RATE: 20, PS:24, PEEP:10, 100% FIO2 CURRENLTY SATURATING @ 88%. RIGHT IJ INTACT AND NOT PATENT, STARTED PERIPHERAL LINE 22 G ON LEFT FA. OG TUBE INTACT AND PATENT RUNNING VITAL 1.2 @ 50 CC/HR (5 CC RESIDUALS UPON CHECKING). PITTING EDEMA NOTED ON ALL EXTREMITIES (CURRENTLY ELEVATED ON PILLOWS), FC AND RECTAL TUBE INTACT AND DRAINING. SKIN NOT INTACT (SEE SKIN ASSESSMENT). FALL/ASPIRATION PRECAUTIONS IMPLEMENTED AT ALL TIMES.
--- NOTE | 2020-02-25 09:19 | NUR ---
NOTIFIED BY PRIMARY RN THAT PT IV ACCESS WITH RIGHT MIRNA CATH CLOGGED AT THIS TIME. NOTIFIED THAT PRIMARY RN CURRENTLY AT BEDSIDE ATTEMPTING PIV. PT EDEMATOUS. CALLED CALL PHONE AND NOTIFIED DR MAIN. AWAITING NEW ORDERS AT THIS TIME
--- NOTE | 2020-02-25 10:40 | NUR ---
VENT SETTINGS CHANGED TO RR:24, VT:450,+12,FIO2:100%, Ti:1.0 PER ABG RESULTS. OK PER DR. BARRIOS. WILL CONT.TO MONITOR
--- NOTE | 2020-02-25 10:40 | NUR ---
PATIENT DESATURATING TO 83% AND RT CHANGED VENT SETTINGS: NOW PEEP:12 AND STILL ON 100%.
--- NOTE | 2020-02-25 10:43 | NUR ---
PT RAPIDLY DECLINING, SPO2 IN 70'S ON 100% FIO2 AND PT HYPOTENSIVE. LEVOPHED INCREASED TO 16MCG/MIN AT THIS TIME. RT PRESENT AT BEDSIDE WITH PRIMARY RN. DR SOUSA AND DR DORSEY NOTIFIED AND MADE AWARE. UPDATED ON PTS CURRENT STATUS. DR DORSEY TO CALL FAMILY AND DISCUSS POC AT THIS TIME
--- NOTE | 2020-02-25 10:55 | NUR ---
DR DORSEY SPOKE TO DAUGHTER FEMI REGARDING POC. UPDATED ON PTS CURRENT STATUS. PER DAUGHTER, PT TO REMAIN FULL CODE.
--- NOTE | 2020-02-25 11:00 | NUR ---
PATIENT CONVERTED TO AFIB NON SUSTAINED WITH HR GOING UP TO 150'S. MD MERRY AT BEDSIDE AND AWARE. NO NEW ORDERS.
[2020-02-25 11:03] LABS: BAND NEUTROPHIL 3 % (0-10); MONOCYTE 5 % (0-7); SEGMENTED NEUTROPHILS 88 % (37-75)
[2020-02-25 11:04] LABS: rbc morphology (normal/abnorm) ABNORMAL (NORMAL)
--- NOTE | 2020-02-25 11:22 | NUR ---
PATIENT STILL DESATURATING WITH O2:62%, RT CHANGED PEEP:14. WILL CONTINUE TO MONITOR
--- NOTE | 2020-02-25 11:25 | NUR ---
INCREASED PEEP TO 14 DUE TO SPO2:62%. DIRECTOR OF [employer] ANGIE AND ANDREWS POST NOTIFIED.WILL CONT.TO MONITOR
--- NOTE | 2020-02-25 11:32 | NUR ---
MD MALACHI AT BEDSIDE. UPDATED ON PATIENTS CONDITION. AWARE PT SBP WENT DOWN TO LOW 80'S, STARTED ON LEVOPHED AND CURRENTLY ON 5 MCG/MIN. PATIENT HR GOES UP TO 150'S NON SUSTAINED. CURRENTLY SATURATING AROUND 70'S WITH FIO2:100%. CANCELLED HD FOR TODAY BASED ON CLINICAL PRESENTATION.
--- NOTE | 2020-02-25 16:00 | NUR ---
Patient placed on bear hugger d/t low temp of 96.2F. Will continue to monitor temp. Patient cleaned, but unable to reposition d/t hemodynamic instability.
--- NOTE | 2020-02-25 17:00 | NUR ---
RT DAMON AWARE OF RESPIRATORY CULTURE ORDER. WILL OBTAIN CULTURE AND SEND TO LAB.
--- NOTE | 2020-02-25 19:03 | NUR ---
SHIFT REPORT GIVEN TO ANDREWS ALEXIS. ENDORSED ALL CARE, ALL QUESTIONS ANSWERED.
--- NOTE | 2020-02-25 19:10 | NUR ---
RECEIVED REPORT FROM SINCERE SPARROW. WILL RESUME CARE.
--- NOTE | 2020-02-25 19:25 | NUR ---
RECIEVED PT INTUBATED WITH NO SEDATION. NO GAG REFEX NOTED. PT UNABLE TO FOLLOW COMMANDS. PUPILS 4MM FIXED. 7.0 ETT AT 24CM LL INTACT AND SECURED. OGT INTACT AND SECURED TO ETT. TK BABBL, DRESSING CDI. ON VENT VCV-A/C MODE WITH SETTINGS OF VT 450, RATE 24, FIO2 100%, PEEP 14. LUNG SOUNDS HAVE CRACKLES BILATERALLY. S1S2 AUSCULTATED. NO S/SX OF CHEST PAIN AT THIS TIME. CAP REFILL <3 SEC. PIITING EDEMA TO BUE'S AND BLE'S. PULSES PALPABLE. GENERALIZED WEAKNESS. ABDOMEN OBESE, NONTENDER. BS ACTIVE X 4. NO N/V. SKY CATHETER IN PLACE DRAINING MINIMAL AMOUNT OF [place] URINE VIA GRAVITY. R BUTTOCK, SACRAL, AND R TREVINO WOUNDS, DRESSINGS IN PLACE. R BUTTOCK, SACRAL, AND R TREVINO WOUNDS, DRESSINGS IN PLACE. BED IN LOW POSITION.
[2020-02-26] VITALS (16 sets, daily range): BP systolic 71–132; BP diastolic 37–74
--- NOTE | 2020-02-26 04:44 | NUR ---
VIDEO PHOTOGRAPHER AT BEDSIDE FOR BLOOD DRAW.
--- NOTE | 2020-02-26 05:30 | NUR ---
DR. HUBBARD IN TO SEE PT. UPDATES PROVIDED. NO NEW ORDERS AT THIS TIME.
--- NOTE | 2020-02-26 07:28 | NUR ---
GAVE REPORT TO SAMANTHA SPARROW. ALL QUESTIONS AND CONCERNS ADDRESSED. ENDORSED THAT MORNING LAB RESULTS ARE PENDING STILL.
[2020-02-26 07:51] LABS: PLATELET COUNT 97 x10^3mcL (130-400); RED CELL DISTRIBUTION WIDTH 24.3 % (11.5-14.5)
[2020-02-26 07:57] LABS: CALCIUM 8.3 mg/dL (8.5-10.1); CARBON DIOXIDE 20.1 mmol/L (21-32); CREATININE SERUM 2.8 mg/dL (0.6-1.0); POTASSIUM SERUM 4.9 mmol/L (3.5-5.1)
--- NOTE | 2020-02-26 08:20 | NUR ---
NOTIFIED DR HWANG AND MED TEAM THAT PTS CRITICAL LABS FOLLOWED; BUN 101 & WBC 24.5. NO NEW ORDERS AT THIS TIME
--- NOTE | 2020-02-26 10:05 | NUR ---
ORAL ET TO VENT AT AC MODE ON TV 450, FIO2 100%, PEEP 14, RATE 24. TOLERATING SETTINGS WELL AND NOT IN ANY DISTRESS AT THIS TIME. OGT WITH CONTINOUS FEEDING OF VITAL 1.2 AT 50 ML/HR AND FWF PF 50 ML Q 4 HR; NOT ON SEDATION;NO RESPONSE EVEN TO PAINFUL STIMULI; RIJ MIRNA CATH IN PLACE WITH DSG CDI AND SL TO LFA. SKY TO GRAVITY WITH MINIMUM YELLOW URINE TO BAG; FLEXISEAL IS INTACT, PATENT AND DIARRHEAL STOOLS ON BAG NOTED. NSG ASSESSMENT DONE; FALL, SAFETY, DROPLET PRECAUTION FOR COVID REINFORCED. WILL CONTINUE TO MONITOR STATUS.
--- NOTE | 2020-02-26 12:32 | NUR ---
PT REMAIN ON ORAL ET TO VENT AT SAME SETTINGS; OBTUNDED; CONTINOUS OGTF AT SAME RATE; BOTH ORAL ET AND OGT SECURED AND INTACT. SKY AND FLEXISEAL REMAIN IN PLACE AND PATENT. WILL CONTINUE TO MONITOR STATUS.
[2020-02-26 12:46] LABS: BAND NEUTROPHIL 1 % (0-10); MONOCYTE 3 % (0-7); SEGMENTED NEUTROPHILS 92 % (37-75)
[2020-02-26 12:47] LABS: rbc morphology (normal/abnorm) NORMAL (NORMAL)
--- NOTE | 2020-02-26 13:30 | NUR ---
PER HEMO NURSE, DOM, SHE RECD ORDER FOR HEMO AND IS HERE TO DO HEMO.
--- NOTE | 2020-02-26 14:00 | NUR ---
HEMO INITIATED; BP DECREASED TO 77/37 (58); HR 71; LEVOPHED RESTARTED AT 4 MCG/MIN. WILL CONTINUE TO MONITOR STATUS.
--- NOTE | 2020-02-26 14:30 | NUR ---
BP 68/34 (44); HR 102; LEVOPHED INCREASED TO 10 MCG/MIN PER INFRASTRUCTURE ARCHITECT ANGIE.
--- NOTE | 2020-02-26 15:30 | NUR ---
DR. MARIO DUMAS IS HERE AND GAVE VERBAL ORDER TO ADMINISTER ALBUMIN 25% 100 ML AT HEMO TODAY.
--- NOTE | 2020-02-26 15:53 | NUR ---
LEVOPHED TURNED OFF AT THIS TIME BP 131/65(87) PER HEMO NURSE FERNANDES; PROPERTY UTILIZATION OFFICER RICHARDSON JAIME.
--- NOTE | 2020-02-26 16:30 | NUR ---
HEMO FINISHED AND 2 L OUT.
--- NOTE | 2020-02-26 17:52 | NUR ---
NO NEW ACUTE CHANGES IN STATUS. REMAIN ON SAME VENT SETTINGS. NOT IN ANY DISTRESS AT THIS TIME. WILL CONTINUE TO MONITOR STATUS.
--- NOTE | 2020-02-26 18:20 | NUR ---
JAMES THERAPEUTIC NUTRITION POWDER FOR WOUND HEALING GIVEN THROUGH OGT DIRECTED.
--- NOTE | 2020-02-26 19:10 | NUR ---
RECEIVED REPORT FROM SAMANTHA SPARROW. WILL RESUME CARE.
--- NOTE | 2020-02-26 19:27 | NUR ---
RECEIVED PT INTUBATED WITH NO SEDATION. UNABLE TO FOLLOW COMMANDS OR MAKE NEEDS KNOWN. NO GAG REFLEX NOTED. 7.0 ETT AT 24CM LL INTACT AND SECURED. OGT INTACT AND SECURED TO ETT. NO REDNESS, DRAINAGE, OR SWEELING NOTED TO EENT. TRACHEA MIDLINE. ON VENT VCV-A/C MODE WITH SETTINGS OF VT 450, FIO2 100%, PEEP 14, RATE 24. VAP CARE PROVIDED. LUNG SOUNDS DIMINISHED TO BASES. S1S2 AUSCULTATED. NO S/SX OF CHEST PAIN NOTED. CAP REFILL <3 SEC. TRACE EDEMA TO BLE'S AND +2 PITTING EDEMA TO BUE'S. PULSES PALPABLE. GENERALIZED WEAKNESS. ABDOMEN OBESE, NONTENDER. BS ACTIVE X 4. NO N/V. FLEXISEAL IN DRAINING VIA GRAVITY LOOSE BROWN STOOL. SKY CATHETER IN PLACE DRAINING VIA GRAVITY MINIMAL AMOUNT OF YELLOW URINE. R BUTTOCK, R TREVINO, AND SACRAL WOUND. DRESSING CDI. BED IN LOW POSITION. CALL LIGHT WITHIN REACH.
[2020-02-27] VITALS (28 sets, daily range): BP systolic 11–138; BP diastolic 53–84
--- NOTE | 2020-02-27 03:24 | NUR ---
PT ASSESSED. NAD NOTED. BREATHING E/U. NO S/SX OF ANY PAIN. REPOSITIONED TO L SIDE. WILL CONTINUE TO MONITOR.
--- NOTE | 2020-02-27 05:15 | NUR ---
COAL WASHER AT BEDSIDE FOR BLOOD DRAW.
[2020-02-27 06:41] LABS: CALCIUM 8.3 mg/dL (8.5-10.1); CARBON DIOXIDE 23.7 mmol/L (21-32); CREATININE SERUM 2.4 mg/dL (0.6-1.0); MAGNESIUM 1.8 mg/dL (1.8-2.4); PHOSPHOROUS 5.3 mg/dL (2.5-4.9)
[2020-02-27 06:46] LABS: BASOPHIL % 0 % (0-2); PLATELET COUNT 141 x10^3mcL (130-400); RED CELL DISTRIBUTION WIDTH 23.8 % (11.5-14.5)
--- NOTE | 2020-02-27 11:39 | NUR ---
Follow-up Nutrition Assessment: Dx: Sepsis, Hyperkalemia, Renal failure Labs: (02/26) Na 138, K 5.0, Glu 106, BUN 80, Cr 2.4, Ca 8.3, H/H 9.12/07 Meds: aspirin, Colace, decadron, D50%, Humulin R, Lantus, Lasix, Levophed, Procrit, Protonix, Sublimaze, Vancocin, Ventolin, VERSED Diet: vital 1.2 at 50ml/hr, fwf 50ml Q4H via OGT TF intake: (02/23) 959ml, (02/22) 1520, (02/21)1563ml, (02/20) 625ml avkcal and 86g pro meeting 100% needs. Weights: (02/23) 78.5kg, (02/21)80kg, (02/17) 76kg (02/18) 75.6kg (02/19) 77.4kg *possibly d/t water retention Edema: See below Last BM: 02/26 flexiseal draining stool Skin: right buttock ulcer and right lower extremity paniagua ulcer. Michael: 10 I/Os (mL): (02/26) 1778/2495 (-717), (02/25) 1009/570 (439), (02/23) 1959/2850ml = -891, (02/22)2523/800ml = 1723ml, (02/21)4011/2470ml = 1541ml, (02/20) 1198/250ml = 948ml, (02/19)3079/1075ml = 2004ml, (02/18) 2525/2575ml = -50ml Last RD Note (02/23): Pt was seen ETT to vent, lying in bed with no s/s of distress during visit. Per pt's primary RN, pt's tube feed was infusing at goal rate 50ml/hr, and pt was tolerating tube feed with no residuals today. Additionally, RN mentioned stool draining in flexiseal. RDN Note (02/26): Pt continues on TF Vital 1.2 at 50 mL/hr with FWF 50 mL Q4H, tolerating well. Per nursing, trace edema to BLE, +2 pitting to BUE. Abd is obese, nontender. F/C in place draining via gravity, minimal amount of yellow urine reported. Flexiseal draining via gravity loose brown stool. Wound to rt buttock, rt paniagua, and sacral wound; dressing CDI. Estimated Nutritional Needs based on adjusted body weight:56kg Minute ventilation: 10.4L/min, Temperature: 36.3 C Energy: 8697-8369 vs. 1467kcal/day (25-30kcal/kg vs PSU 2003) Protein: 67-112g/day (1.2-2g/day for vent dependence, ESRD on HD and wound healing) Fluid: 1-1.2L +output for ESRD on HD Nutrition Diagnosis: (ongoing) 1. Increased energy and protein needs related to hypermetabolic state and altered skin integrity as evidenced by pt has sepsis and pressure ulcer to buttocks Intervention: 1. Continue Vital AF 1.2 at 50ml/hr, FWF:50ml q 4hr to provide 1440kcal, 90g protein and 973ml FWF. This meets 100% of caloric and protein needs. 2. Continue Marty BID for wound healing. Monitor/Evaluate: Goal: Have pt meet at least 75% of estimated needs via nutrition support (met, ongoing goal) Monitor: Nutrition support tolerance, Labs, GI function, Body weight, Skin integrity F/U in 2-3 days as high risk 02/28-
--- NOTE | 2020-02-27 17:33 | NUR ---
CHARGE TO BEDSIDE TO ASSESS PT. PT SLIGHTLY OPENS EYES, PUPILS REMAIN FIXED BILAT. PT UNABLE TO TRACK. WHEN GIVEN SIMPLE COMMANDS OF WHETHER PATIENT UNDERSTANDS WHAT I AM SAYING, PT NOTED TO HAVE VERY SLIGHT NOD OF HEAD. WHEN INSTRUCTED TO MOVE LOWER LIP IF INFORMATION IS UNDERSTOOD, PT ABLE TO MOVE LOWER LIP CONSISTENTLY TO QUESTIONS. WILL ENDORSE TO ONCOMING SHIFT THAT PT IS VERY WEAK TO MOVE HEAD BUT ABLE TO MOVE LOWER LIP TO GESTURE FOR QUESTIONS. PT REORIENTATED TO ENVIRONMENT AND CURRENT SITUATION.
--- NOTE | 2020-02-27 19:27 | NUR ---
RECEIVED PT INTUBATED AND SEDATED ON VERSED AT 0.25MG/HR AND FENTANYL AT 0.25MCG/KG/HR. PT UNABLE TO FOLLOW COMMANDS. PT OBTUNDED. L PUPIL 3MM FIXED AND R PUPIL 4MM FIXED. 7.0 ETT AT 24CM LL INTACT AND SECURED. OGT INTACT AND SECURED TO ETT. NO DRAINAGE TO EENT. ON VENT VCV-A/C MODE WITH SETTINGS OF VT 450, FIO2 100%, RATE 24, PEEP 14. BREAHTING E/U. LUNG SOUNDS DIMINISHED BILATERALLY. S1S2 AUSCULTATED. NO S/SX OF CHEST PAIN. CAP REFILL <3 SEC. TRACE EDEMA TO BLE'S AND +3 PITTING EDEMA TO BUE'S. PULSES PALPABLE. ABDOMEN OBESE, SOFT. BS ACTIVE X 4. NO N/V. SKY CATHETER IN PLACE DRIANING VIA GRAVITY YELLOW URINE. R BUTTOCK, SACRAL, AND R TREVINO WOUND. BED IN LOW POSITION.
[2020-02-28] VITALS (7 sets, daily range): BP systolic 78–136; BP diastolic 42–71
--- NOTE | 2020-02-28 00:14 | NUR ---
ASSESSED PT. NAD NOTED. NO S/SX OF PAIN PER FLACC SCALE. BREATHING E/U. WILL CONTINUE TO MONITOR.
--- NOTE | 2020-02-28 00:14 | NUR ---
PT ASSESSED. NO ACUTE CHANGES NOTED. NO S/SX OF PAIN NOTED PER FLACC SCALE. WILL CONTINUE TO MONITOR.
--- NOTE | 2020-02-28 05:15 | NUR ---
DR. PABLO UPDATED ON PT'S STATUS. NO NEW ORDERS AT THIS TIME.
[2020-02-28 06:20] LABS: CALCIUM 8.1 mg/dL (8.5-10.1); CARBON DIOXIDE 25.2 mmol/L (21-32); CREATININE SERUM 2.7 mg/dL (0.6-1.0); PHOSPHOROUS 6.5 mg/dL (2.5-4.9)
--- NOTE | 2020-02-28 06:20 | NUR ---
PT CLEANED. NEW DRESSINGS APPLIED TO R BUTTOCK AND R TREVINO. SKY CATHETER CARE PROVIDED. 120CC OF URINE OUTPUT DURING SHIFT. 50CC OF LOOSE BROWN STOOL IN FLEXISEAL. PT OFFLOADED ON PILLOWS. BED IN LOW POSITION.
[2020-02-28 06:23] LABS: PLATELET COUNT 171 x10^3mcL (130-400)
[2020-02-28 06:24] LABS: POTASSIUM SERUM 5.7 mmol/L (3.5-5.1)
[2020-02-28 06:57] LABS: BASOPHIL % 0 % (0-2); RED CELL DISTRIBUTION WIDTH 24.1 % (11.5-14.5)
--- NOTE | 2020-02-28 07:05 | NUR ---
REPORT RECEIVED FROM HALINA SPARROW. ALL QUESTIONS AND CONCERNS ADDRESSED.
--- NOTE | 2020-02-28 08:30 | NUR ---
DR HWANG AND RESIDENTS ROUNDING AT THIS TIME. UPDATES PROVIDED BY NURSING.
--- NOTE | 2020-02-28 09:30 | NUR ---
ALEAH GARCIA AND MYSELF AT BEDSIDE. PATIENT WITH SPO2 IN MID 70'S WITH FIO2 100% ON VENT. ATTEMPTED TO PROVIDE ORAL CARE, SUCTION AND REPOSITION WITH NO INCREASE IN SPO2. COARSE LUNG SOUNDS THROUGHOUT. WILL CONTINUE TO MONITOR.
--- NOTE | 2020-02-28 09:49 | NUR ---
DR LEÓN AT BEDSIDE TO ASSESS PATIENT. UPDATES PROVIDED BY NURSING.
--- NOTE | 2020-02-28 10:18 | NUR ---
PATIENT WITH HR 33, SPO2 IN 40'S, PULSES LOST. CODE BLUE CALLED. SEE CODE SHEET.
--- NOTE | 2020-02-28 11:00 | NUR ---
DR BARRIOS AT BEDSIDE TO PLACE ARTERIAL LINE. TIME OUT TAKEN WITH ALL PARTIES IN AGREEMENT. WILL CONTINUE TO MONITOR.
[2020-02-28 11:54] LABS: BASOPHIL % 0.2 % (0-2); PLATELET COUNT 171 x10^3mcL (130-400)
[2020-02-28 12:03] LABS: BILIRUBIN TOTAL 0.56 mg/dL (0.20-1.00); CALCIUM 8.1 mg/dL (8.5-10.1); CARBON DIOXIDE 21.7 mmol/L (21-32)
--- NOTE | 2020-02-28 12:11 | NUR ---
DR BARRIOS ON PHONE SPEAKING WITH PATIENT'S DAUGHTER FEMI DISCUSSING PATIENT'S POOR PROGNOSIS.
[2020-02-28 12:26] LABS: RED CELL DISTRIBUTION WIDTH 23.1 % (11.5-14.5)
[2020-02-28 12:34] LABS: ALBUMIN 1.8 g/dL (3.4-5.0); TOTAL PROTEIN, SERUM 5.2 g/dL (6.4-8.2)
[2020-02-28 12:35] LABS: POTASSIUM SERUM 6.1 mmol/L (3.5-5.1)
--- NOTE | 2020-02-28 12:47 | NUR ---
PATIENT IN ASYSTOLE. DR BARRIOS AT BEDSIDE TO ASSIST WITH CODE. SEE CODE SHEET.
--- NOTE | 2020-02-28 13:03 | NUR ---
PATIENT IN PEA WITH NO PULSES PRESENT. DR BARRIOS PRONOUCED TOD.
--- NOTE | 2020-02-28 13:10 | NUR ---
DR DORSEY TELEPHONED PATIENT'S DAUGHTER FEMI AND INFORMED HER PATIENT AT 1303.
--- NOTE | 2020-02-28 13:10 | NUR ---
DR PABLO TELEPHONED PATIENT'S DAUGHTER AND INFORMED HER PATIENT AT 1303.
--- NOTE | 2020-02-28 16:32 | NUR ---
PATIENT'S DAUGHTERS AT BEDSIDE TO GRIEVE OVER PATIENT.
--- NOTE | 2020-02-28 16:49 | NUR ---
PATIENT'S DAUGHTERS LEAVING THE UNIT. ALL OF PATIENT'S BELONGINGS GIVEN TO DAUGHTER FEMI IN LARGE BLUE BAG.
--- NOTE | 2020-02-28 18:14 | NUR ---
LATE ENTRY: 1303- TOD PRONOUNCED BY DR BARRIOS 1312- [facility] NOT[facility] PATIENT . 1335- [employer] FROM [facility] RELEASED BODY [id number] 7890- RETURN PHONE CALL FROM CUSTOMER SERVICES SUPERVISOR'S OFFICE- DEPUTY BECKY BOONE, RELEASED BODY RELEASE# [id number] AWAITING FAMILY TO COME BEDSIDE TO SEE PATIENT 1814-POST MORTEM CARE TO BE PROVIDED AND PATIENT TO BE TRANSFERRED TO [facility] [place].
== END 2020-02-28 13:03 | disposition expired | DRG 720 ==
LOC: ED 21:26 → DU 01-12 00:18 → MU 01-12 00:18 → IC 01-12 00:18 → DU 01-13 10:49 → MU 01-14 17:53 → DU 01-18 15:07 → MU 01-18 16:41 → DU 01-18 17:25 → MU 01-20 11:04 → DU 01-27 15:08 → MU 01-28 14:34 → DU 02-02 16:47 → IC 02-03 23:49
PROVIDERS: Emergency Medicine; Family Medicine Addiction Medicine; Internal Medicine; Internal Medicine Nephrology; Student in an Organized Health Care Education/Training Program; ADMIT Family Medicine; ATTEND Family Medicine
PROC: 0JBL0ZZ Excision of Right Upper Leg Subcutaneous Tissue and Fascia, Open Approach (ICD-10-PCS; 2020-01-12)
PROC: 0JB90ZZ Excision of Buttock Subcutaneous Tissue and Fascia, Open Approach (ICD-10-PCS; principal; 2020-01-12 19:00)
PROC: BT141ZZ Fluoroscopy of Kidneys, Ureters and Bladder using Low Osmolar Contrast (ICD-10-PCS; 2020-01-22)
PROC: 0T788DZ Dilation of Bilateral Ureters with Intraluminal Device, Via Natural or Artificial Opening Endoscopic (ICD-10-PCS; 2020-01-22)
PROC: 0TBB8ZX Excision of Bladder, Via Natural or Artificial Opening Endoscopic, Diagnostic (ICD-10-PCS; 2020-01-22)
PROC: 5A1955Z Respiratory Ventilation, Greater than 96 Consecutive Hours (ICD-10-PCS; 2020-02-05)
PROC: 0BH17EZ Insertion of Endotracheal Airway into Trachea, Via Natural or Artificial Opening (ICD-10-PCS; 2020-02-05)
PROC: 30233L1 Transfusion of Nonautologous Fresh Plasma into Peripheral Vein, Percutaneous Approach (ICD-10-PCS; 2020-02-05)
PROC: 30233N1 Transfusion of Nonautologous Red Blood Cells into Peripheral Vein, Percutaneous Approach (ICD-10-PCS; 2020-02-05)
PROC: 30233K1 Transfusion of Nonautologous Frozen Plasma into Peripheral Vein, Percutaneous Approach (ICD-10-PCS; 2020-02-05)
PROC: 02HV33Z Insertion of Infusion Device into Superior Vena Cava, Percutaneous Approach (ICD-10-PCS; 2020-02-06)
PROC: 5A1D70Z Performance of Urinary Filtration, Intermittent, Less than 6 Hours Per Day (ICD-10-PCS; 2020-02-06)
PROC: 5A1D70Z Performance of Urinary Filtration, Intermittent, Less than 6 Hours Per Day (ICD-10-PCS; 2020-02-07)
PROC: 5A1D70Z Performance of Urinary Filtration, Intermittent, Less than 6 Hours Per Day (ICD-10-PCS; 2020-02-09)
PROC: 5A1D70Z Performance of Urinary Filtration, Intermittent, Less than 6 Hours Per Day (ICD-10-PCS; 2020-02-12)
PROC: 5A1D70Z Performance of Urinary Filtration, Intermittent, Less than 6 Hours Per Day (ICD-10-PCS; 2020-02-14)
PROC: 5A1D70Z Performance of Urinary Filtration, Intermittent, Less than 6 Hours Per Day (ICD-10-PCS; 2020-02-16)
PROC: 5A1D70Z Performance of Urinary Filtration, Intermittent, Less than 6 Hours Per Day (ICD-10-PCS; 2020-02-18)
PROC: 5A1D70Z Performance of Urinary Filtration, Intermittent, Less than 6 Hours Per Day (ICD-10-PCS; 2020-02-21)
PROC: 5A1D70Z Performance of Urinary Filtration, Intermittent, Less than 6 Hours Per Day (ICD-10-PCS; 2020-02-22)
PROC: 5A1D70Z Performance of Urinary Filtration, Intermittent, Less than 6 Hours Per Day (ICD-10-PCS; 2020-02-23)
PROC: 5A1D70Z Performance of Urinary Filtration, Intermittent, Less than 6 Hours Per Day (ICD-10-PCS; 2020-02-26)
PROC: 5A12012 Performance of Cardiac Output, Single, Manual (ICD-10-PCS; 2020-02-28)
DX: A41.9 Sepsis, unspecified organism (principal); U07.1 COVID-19; I21.4 Non-ST elevation (NSTEMI) myocardial infarction; E43 Unspecified severe protein-calorie malnutrition; J96.00 Acute respiratory failure, unspecified whether with hypoxia or hypercapnia; J12.89 Other viral pneumonia; N17.0 Acute kidney failure with tubular necrosis; G93.1 Anoxic brain damage, not elsewhere classified; I21.A1 Myocardial infarction type 2; E83.39 Other disorders of phosphorus metabolism; I12.0 Hypertensive chronic kidney disease with stage 5 chronic kidney disease or end stage renal disease; E11.65 Type 2 diabetes mellitus with hyperglycemia; L02.31 Cutaneous abscess of buttock; E87.1 Hypo-osmolality and hyponatremia; B96.20 Unspecified Escherichia coli [E. coli] as the cause of diseases classified elsewhere; E87.5 Hyperkalemia; E11.22 Type 2 diabetes mellitus with diabetic chronic kidney disease; N18.6 End stage renal disease; N13.6 Pyonephrosis; R33.9 Retention of urine, unspecified; D64.9 Anemia, unspecified; N31.9 Neuromuscular dysfunction of bladder, unspecified; K21.9 Gastro-esophageal reflux disease without esophagitis; N13.9 Obstructive and reflux uropathy, unspecified; D63.1 Anemia in chronic kidney disease; E83.42 Hypomagnesemia; F41.9 Anxiety disorder, unspecified; K61.1 Rectal abscess; L03.90 Cellulitis, unspecified; E78.5 Hyperlipidemia, unspecified; E11.21 Type 2 diabetes mellitus with diabetic nephropathy; R65.21 Severe sepsis with septic shock; E78.00 Pure hypercholesterolemia, unspecified; Z79.84 Long term (current) use of oral hypoglycemic drugs; Z79.4 Long term (current) use of insulin; Z79.899 Other long term (current) drug therapy; Z80.9 Family history of malignant neoplasm, unspecified; Z68.26 Body mass index [BMI] 26.0-26.9, adult; Z91.19 Patient's noncompliance with other medical treatment and regimen
CPT/HCPCS: 31500; 36556; 36600; 82962; 83880; 85378; 94150; 97112-GP; 97116-GP; 97530-GP; A4628; C1758; C2625; C9113; G0378; J0282; J0360; J0610; J0885-EC; J1100; J1170; J1642; J1644; J1815; J1940; J2060; J2185; J2250; J2370; J2405; J2543; J2704; J2916; J3010; J3370; J3475; J3490; J3535; J7030; J7040; J7050; J7120; P9016; P9047; Q0092; Q0163; Q9967; U0003-CS